=== PATIENT | female | born 1960 | race Caucasian/White ===

== ENCOUNTER 2023-08-07 07:54 | Outpatient (OUT) | payer OTHER, SELFPAY ==
--- NOTE | 2023-08-07 07:59 | XR_ITS ---
[address] [address] Patient Name: TERRIE NEWBERRY MRN: [id number] date: 1960 Sex: F Assigned Patient Location: [facility] Current Patient Location: [facility] Accession/Order Number: [id number] Exam Date: 08/07/2023 08:10 Report Date: 08/07/2023 08:47 At the request of: CHILO ALVARES Procedure: XR DEXA axial skeleton EXAMINATION: XR DEXA axial skeleton HISTORY: Postmenopausal Osteoporosis COMPARISON: DEXA bone densitometry 05/07/2021 TECHNIQUE: Dual-energy X-ray absorptiometry (DXA) was performed. FINDINGS: SPINE ANALYSIS: Average bone mineral density is 0.916 g/cm2. T-score (standard deviation relative to young adult mean): -2.2 . +1.4% change since prior study. HIP ANALYSIS: Lowest bone mineral density is within the left femoral neck, 0.681 g/cm2. T-score (standard deviation relative to young adult mean): -2.6 . +3.7% change since prior study. XR/XR DEXA axial skeleton IMPRESSION: [employer] Classification: Osteoporosis - High Fracture Risk Electronically authenticated by: MERRY RILEY Date: 08/07/2023 08:47
--- NOTE | 2023-08-07 07:59 | MM_ITS ---
Patient Name: TERRIE NEWBERRY MR#: [id number] : 1960 Exam Date: 08/07/2023 Ordering Doctor: MRS. CHILO ALVARES . RADIOLOGY REPORT PROCEDURE: MM TOMOSYNTHESIS SCREENING BI COMPARISON: MG MAMM SCREEN 3D BHANU CAD, 08/01/2022. MG MAMM SCREEN 3D BHANU CAD, 07/31/2021. MG MAMM SCREEN BHANU W CAD, 07/30/2020. MG MAMM BHANU SCRN W CAD DIG, 06/30/2013. INDICATIONS: Screening Calculator Name NCI Breast Cancer Risk Assessment Tool 5 Year Breast Cancer Risk 1.40% Lifetime Breast Cancer Risk 5.60% Personal Breast Cancer No Personal Ovarian Cancer No Treatments hysterectomy Family Cancers None LOCATION: [facility] BREAST COMPOSITION: Heterogeneously dense,which may obscure small masses. FINDINGS: DIAGNOSTIC CATEGORY 1--NEGATIVE. RIGHT BREAST: No significant suspicious finding. No significant change has occurred. LEFT BREAST: No significant suspicious finding. No significant change has occurred. RECOMMENDATIONS: ROUTINE MAMMOGRAM AND CLINICAL EVALUATION IN 12 MONTHS. PLEASE NOTE: A NORMAL MAMMOGRAM DOES NOT EXCLUDE THE POSSIBILITY OF BREAST CANCER. A CLINICALLY SUSPICIOUS PALPABLE LUMP SHOULD BE BIOPSIED. Dictated by: Kam Marley M.D. on 08/11/2023 at 13:55 Approved by: Kam Marley M.D. on 08/11/2023 at 13:57
== END 2023-08-07 07:55 | disposition home or self-care (01) ==
LOC: MAMMO 07:54
PROVIDERS: PCP Nurse Practitioner; Visit Provider Nurse Practitioner
DX: Z12.31 Encounter for screening mammogram for malignant neoplasm of breast (principal); M81.0 Age-related osteoporosis without current pathological fracture
CPT/HCPCS: 77063; 77067; 77080

== ENCOUNTER 2023-11-07 09:45 | Emergency (ER) | payer OTHER, SELFPAY ==
[2023-11-07 09:48] VITALS: BP 145/80; PULSE 104; RESP 16; O2SAT 99; BMI 21.2
--- OUTSIDE RECORDS SUMMARY | 2023-11-07 09:52 | XMS_ITS | CCD ---
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 Role Phone Unavailable Primary Care Provider MD Merle Mcneil Primary Care Provider [facility], Outreach Attending Provider MERLE HERNANDEZ Primary Care Physician [phone] ERENDIRA FOSTER Admitting Unavailable ERENDIRA FOSTER Attending Unavailable CIELO ., DR MERLE Alanis Primary Care Unavailable ERENDIRA FOSTER Consulting Unavailable SHARP, CARIDAD Consulting Unavailable TERELL II, DUANE Consulting Unavailable KARASIK ., DR WATSON Admitting Unavailabl e KARASIK ., DR WATSON Attending Unavailjuan HERNANDEZ ., DR MERLE Alanis Primary Care Unavailable KARASIK ., DR WATSON Consulting Unavailabl e KARASIK ., DR WATSON Admitting Unavailabl e KARASIK ., DR WATSON Attending Unavailjuan HERNANDEZ ., DR MERLE Alanis Primary Care Unavailable KARASIK ., DR WATSON Consulting Unavailjuan e JULIANA, DR CYRUS Pederson Consulting Unavailable [facility] Outreach Attending Unavailable [facility], Outreach Admitting Unavailable Merle Hernandez Primary Care Unavailable MD Merle Hernandez Primary Care Provider [phone] [facility], Out[facility] Attending Provider JOE NUNEZ Attending Unavailable Adia Wong Primary Care Physician Erendira FOSTER Attending Unavailable MERLE HERNANDEZ Referring Unavailable Erendira FOSTER Attending Unavailable Erendira FOSTER Attending Unavailable Marvin, BILLY Alvarez Attending Unavailable Marvin, BILLY Alvarez Attending Unavailable Marvin, PROPERTY MANAGEMENT ASSISTANT Adia Alvarez Attending Unavailable Marvin, PROPERTY MANAGEMENT ASSISTANTAva Alvarez Attending Unavailable Marvin, BILLY Alvarez Admitting Unavailable BILLY Wong Attending Unavailable Anamaria JEAN Attending Unavailable Allergies Allergy Classification Reported Allergen(s) Allergy Type Date of Onset Reaction(s) Facility (3 sources) Bee/Wasp/Ant venom; Translations: [Bee Stings] Drug allergy Edema (finding) [facility] (3 sources) Codeine; Translations: [codeine] Drug Allergy Eruption of skin (disorder) [facility] (3 sources) Erythromycin; Translations: [erythromycin] Drug Allergy Stomach ache (finding) [facility] (3 sources) Meperidine; Translations: [meperidine] Drug Allergy Hallucinations (finding) [facility] (3 sources) Orphenadrine; Translations: [orphenadrine] Drug Allergy Syncope (disorder) [facility] (3 sources) Raloxifene; Translations: [raloxifene] Drug Allergy Unknown (qualifier value) [facility] (3 sources) Risedronate; Translations: [risedronate] Drug Allergy Joint pain (finding) [facility] (1 source) bee venom Drug allergy (disorder) 4 [facility] (1 source) Codeine Drug Allergy 4 [facility] (1 source) Erythromycin Drug Allergy [facility] (1 source) Meperidine Drug Allergy 4 [facility] (1 source) Orphenadrine Drug Allergy 4 [facility] (1 source) Orphenadrine Drug Allergy [facility] (1 source) Raloxifene Drug Allergy [facility] (1 source) Risedronate Drug Allergy [facility] Medications Current Medications Medication Drug Class(es) Dates Sig (Normalized) Sig (Original) alendronic acid 70 mg oral tablet (2 sources) Bisphosphonate Start: 05-05-2023 take 1 tablet by mouth every week Fosamax 70 mg Tab 70 mg = 1 tab(s), Oral, qWeek, # 12 tab(s), Refills(s) 1, Pharmacy: [facility], 156.4, cm, 03/09/23 9:12:00 EDT, Height/Length Dosing, 52, kg, 03/09/23 9:12:00 EDT, Weight Dosing Start Date: 05/05/23 Status: Ordered Start: 10-15-2022 take 1 tablet by khari th every week Fosamax 70 mg Tab 70 mg = 1 tab(s), Oral, qWeek, Refills(s) 0 Start Date: 10/15/22 Status: Ordered amoxicillin 500 mg oral capsule (1 source) Penicillin-class Antibacterial Start: 08-20-2023 End: 08-27-2023 take 1 capsule by mouth three times daily amoxicillin 500 mg Cap 500 mg = 1 cap(s), Oral, TID, X 7 day(s), # 21 cap(s), Refills(s) 0, Pharmacy: [facility]/pharmacy #[id number], 154, cm, 05/28/23 10:28:00 EDT, Height/Length Dosing, 50.5, kg, 05/28/23 10:28:00 EDT, Weight Dosing Start Date: 08/20/23 Stop Date: 08/27/23 Status: Ordered cefuroxime 500 mg oral tablet (1 source) Cephalosporin Antibacterial Start: 08-25-2023 End: 09-01-2023 take 1 tablet by mouth twice daily cefuroxime 500 mg oral tablet 500 mg = 1 tab(s), Oral, BID, X 7 day(s), # 14 tab(s), Refills(s) 0, Pharmacy: [facility]/pharmacy #[id number], 154, cm, 05/28/23 10:28:00 EDT, Height/Length Dosing, 50.5, kg, 05/28/23 10:28:00 EDT, Weight Dosing Start Date: 08/25/23 Stop Date: 09/01/23 Status: Ordered Fish Oils (2 sources) Start: 10-21-2022 Fish Oil Refill(s) 0 Start Date: 10/21/22 Status: Ordered Multi Vitamins oral tablet (2 sources) Start: 10-21-2022 take 1 tablet by mouth once daily Multi Vitamins oral tablet 1 tab(s), Oral, Daily, Refill(s) 0 Start Date: 10/21/22 Status: Ordered Problems Active Problems Problem Classification Problem Date Documented Date Episodic/Chronic Abdominal hernia (3 sources) Hiatal hernia; Translations: [Diaphragmatic hernia without obstruction or gangrene] Onset: 11-06-2022 10-15-2022 Episodic Cancer of uterus (3 sources) History of malignant neoplasm of endometrium; Translations: [Personal history of malignant neoplasm of other parts of uterus] Onset: 11-06-2022 10-15-2022 Episodic Cancer; other and unspecified primary (1 source) Personal history of malignant neoplasm of other organs and systems; Translations: [PERS HX MALIG NEOPLASM OTH ORGN AND SYS] Onset: 11-06-2022 Episodic Esophageal disorders (3 sources) Gastroesophageal reflux disease; Translations: [Gastro-esophageal reflux disease without esophagitis] Onset: 11-06-2022 10-15-2022 Chronic Genitourinary symptoms and ill-defined conditions (3 sources) History of recurrent urinary tract infection; Translations: [Personal history of urinary (tract) infections] Onset: 11-06-2022 10-15-2022 Episodic Menopausal disorders (1 source) Menopausal and postmenopausal disorders 05-28-2023 Chronic Osteoporosis (3 sources) Osteoporosis; Translations: [Age-related osteoporosis without current pathological fracture] Onset: 11-06-2022 10-15-2022 Chronic Other aftercare (1 source) Other alf (current) drug therapy; Translations: [OTH MOTOR RACER CURRENT DRUG THERAPY] Onset: 11-06-2022 Episodic Other connective tissue disease (2 sources) Plantar fascial fibromatosis 10-15-2022 Episodic Other infections; including parasitic (2 sources) History of herpes zoster 10-15-2022 Episodic Other screening for suspected conditions (not mental disorders or infectious disease) (13 sources) Screening for malignant neoplasm of colon done; Translations: [Encounter for screening for malignant neoplasm of colon] Onset: 07-15-2022 Episodic Other upper respiratory disease (1 source) Seasonal allergy 03-09-2023 Chronic Other upper respiratory infections (1 source) Sinusitis 03-09-2023 Chronic Residual codes; unclassified (1 source) Acquired absence of other specified parts of digestive tract; Translations: [ACQ ABSENCE OTH PART DIGESTV TRACT] Onset: 11-06-2022 Episodic Residual codes; unclassified (1 source) Acquired absence of both cervix and uterus; Translations: [ACQUIRED ABSENCE BOTH CERVIX AND UTERUS] Onset: 11-06-2022 Episodic Residual codes; unclassified (1 source) Acquired absence of ovaries, bilateral; Translations: [ACQUIRED ABSENCE OVARIES BILATERAL] Onset: 11-06-2022 Episodic Unclassified (2 sources) Body mass index 20-24 - normal 10-21-2022 Unclassified (4 sources) Patient encounter status 10-21-2022 Past or Other Problems Problem Classification Problem Date Documented Date Episodic/Chronic Immunizations and screening for infectious disease (1 source) Encounter for screening for human papillomavirus (HPV); Translations: [ENC SCREENING HUMAN PAPILLOMAVIRUS] Onset: 07-17-2022 Episodic Results Test Name Value Interpretation Reference Range Facility C Urineon 08-27-2023 Bacteria identified Cx Nom (U) Microbiology PROCEDURE: Urine Culture [R1] SOURCE: U CleanCatch BODY SITE: COLLECTED DATE/TIME: 08/25/2023 08:40 EST RECEIVED DATE/TIME: 08/25/2023 17:33 EST START DATE/TIME: 08/25/2023 17:33 EST FREE TEXT SOURCE: Adia Orosco Jodi L FINAL REPORTS Final Report [] Verified Date/Time: 08/27/2023 10:43 EST >100,000 cfu/ml Escherichia coli SUSCEPTIBILITY RESULTS LEGEND: S=Susceptible, N/R=Not Reported, Blank=Data not available, or drug not advisable or tested, I=Intermediate, ESBL=Extended spectrum beta-lactamase, R=Resistant, TFG=Thymidine-depende nt strain, JUAN M=Beta-lactamase positive, SAM=mcg/m;(mg/L), S*=Predicted susceptible interp, R*=Predicted resistant interp EC Antibiotic SAM Dilutn SAM Interp Amikacin <=16 S Ampicillin >16 R Ampicillin/ 16/8 I Sulbactam Aztreonam <=4 S Cefazolin <=2 S Cefepime <=2 S Cefoxitin <=8 S Ceftazidime <=1 S Ceftazidime/ <=8 S Avibactam Ceftriaxone <=1 S Ciprofloxacin <=1 S Ertapenem <=0.5 S Gentamicin <=4 S Levofloxacin <=2 S Meropenem <=1 S Nitrofurantoin <=32 S Piperacillin/ <=16 S Tazobactam Tetracycline <=4 S Tigecycline <=2 S Tobramycin <=4 S Trimethoprim/ >2/38 R Sulfa Performing Locations R1: This test was performed at: [facility], [address] [place] [address], [id number] , , [facility] Comment on above: Performed By: #### [id number] ####[facility] [id number] [place] [address] Nurse Consultation Noteon Nurse Consultation Note Physical Exam Pt having burning with urination and frequency. Urine positive for infection, urine sent for culture. Assessment/Plan Burning with urination (R30.0: Dysuria) Medications amoxicillin 500 mg Cap, 500 mg= 1 cap(s), Oral, TID cefuroxime 500 mg oral tablet, 500 mg= 1 tab(s), Oral, BID Fish Oil Fosamax 70 mg Tab, 70 mg= 1 tab(s), Oral, qWeek, 1 refills Multi Vitamins oral tablet, 1 tab(s), Oral, Daily Allergies Actonel (Joint pain) Bee Stings (Edema) Demerol (Hallucinations) Evista (Unknown) Norflex (Syncope) codeine (Rash) erythromycin (Stomach upset) Immunizations Vaccine Date Status Comments influenza virus vaccine, inactivated 06/2022 Recorded SARS-CoV-2 (COVID-19) mRNA-1273 vaccine 08/23/2021 Recorded 2022-10-21: [id number] SARS-CoV-2 (COVID-19) mRNA-1273 vaccine 10/10/2020 Recorded SARS-CoV-2 (COVID-19) mRNA-1273 vaccine 09/12/2020 Recorded Lab Results Ambulatory Point of Care Results Bilirubin Urine Dipstick: Negative (08/25/23 08:28:00) Blood Urine Dipstick: 2+ Moderate (08/25/23 08:28:00) Glucose Urine Dipstick: Negative (08/25/23 08:28:00) Ketones Urine Dipstick: Negative (08/25/23 08:28:00) Leukocytes Urine Dipstick: Trace (08/25/23 08:28:00) Nitrite Urine Dipstick: Negative (08/25/23 08:28:00) Protein Urine Dipstick: Negative (08/25/23 08:28:00) Specific [place] Urine Dipstick: 1.010 (08/25/23 08:28:00) Urine Appearance Urine Dipstick: Slightly cloudy (08/25/23 08:28:00) Urine Color Urine Dipstick: Light yellow (08/25/23 08:28:00) Urobilinogen Urine Dipstick: Normal 0.2-1 EU/dl (08/25/23 08:28:00) pH Urine Dipstick: 5.5 (08/25/23 08:28:00) Normal [facility] Ambulatory Visit Summaryon 1 Ambulatory Visit Summary NANCY NEWBERRY :1960 Visit Date:07/08/2023 Ambulatory Visit Instructions Your Care Team Attending Physician - Adia Orosco Primary Care Physician - CIELO PUENTES, MERLE Alanis This Is Your Medications List alendronate (Fosamax 70 mg Tab) multivitamin (Multi Vitamins oral tablet) omega-3 polyunsaturated fatty acids (Fish Oil) Procedures Performed Cholecystectomy (06/2005), PATRICK BSO - Total abdominal hysterectomy and bilateral salpingo-oophorectomy (07/2004), Biopsy of breast, Exploratory laparotomy, ORIF - Open reduction and internal fixation of fracture. Medications What How Much When Instructions Unchanged alendronate (Fosamax 70 mg Tab) 1 Tablets By Mouth Every week Unchanged multivitamin (Multi Vitamins oral tablet) 1 Tablets By Mouth Every day Unchanged omega-3 polyunsaturated fatty acids (Fish Oil) Allergies Actonel (Joint pain) Bee Stings (Edema) Demerol (Hallucinations) Evista (Unknown) Norflex (Syncope) codeine (Rash) erythromycin (Stomach upset) Problems Ongoing - Any problem that you are currently receiving treatment for. BMI 20.0-20.9, adult Breast cancer screening GERD (gastroesophageal reflux disease) Hiatal hernia History of endometrial cancer History of recurrent UTIs History of shingles Osteoporosis Plantar fascial fibromatosis Post menopausal syndrome Screening for malignant neoplasm of colon Seasonal allergies Sinusitis Well woman exam Patient Survey You may receive a survey via text or e-mail asking about your office visit. Please share your experience with us by completing your survey. We appreciate your feedback and thank you for choosing us for your care. [facility] 07-08-2023 Consent [id number]#1. 00TIFF [facility] Consent for Flu Vaccineon Consent for Flu Vaccine [id number]#1. 00TIFF [facility] Lab Reportson 06-03-2023 Lab Reports [id number]# 1.00CD:127 [facility] Alanine aminotransferase [En zymatic activity/volume] in Serum or PlasmaOrdered By: OUTREACH COMMUNITY on 05-30-2023 ALT [Catalytic activity/Vol] 22 U/L 7-52 [facility] Albumin [Mass/volume] in Ser um or Plasma by Bromocresol green (BCG) dye binding methoOrdered By: OUTREACH COMMUNITY on 05-30-2023 Albumin BCG dye [Mass/Vol] 4.7 g/dL 3.5-5.7 [facility] Alkaline phosphatase [Enzyma tic activity/volume] in Serum or PlasmaOrdered By: OUTREACH COMMUNITY on 05-30-2023 ALP [Catalytic activity/Vol] 39 U/L 34-104 [facility] Aspartate aminotransferase [ Enzymatic activity/volume] in Serum or PlasmaOrdered By: OUTREACH COMMUNITY on 05-30-2023 AST [Catalytic activity/Vol] 25 U/L 13-39 [facility] Bilirubin.total [Mass/volume ] in Serum or PlasmaOrdered By: OUTREACH [facility] on 05-30-2023 Bilirubin [Mass/Vol] 1.5 mg/dL 0.3-1.0 [facility] Comment on above: Samples from patient s who have taken Naproxen have shown spurious elevation in Total Bilirubin levels. A metabolite of Naproxen, O-desmethylnaproxen, has been shown to interfere with the Viridiana-Gabe method for measuring Total Bilirubin. CBC Without Differentialon 0 05-30-2023 Erythrocyte distribution width (RBC) [Ratio] 12.7 % Normal 11.9-15.3 [facility] Comment on above: Performed By: #### O UTREACH LIPID, OUTREACH TSH, OUTREACH CMP, CBCNOOUTREACH #### [address] Hematocrit (Bld) [Volume fraction] 44.7 % Normal 34.0-46.4 [facility] Comment on above: Performed By: #### O UTREACH LIPID, OUTREACH TSH, OUTREACH CMP, CBCNOOUTREACH #### [address] Hemoglobin (Bld) [Mass/Vol] 15.1 g/dL Normal 11.8-15.4 [facility] Comment on above: Performed By: #### O UTREACH LIPID, OUTREACH TSH, OUTREACH CMP, CBCNOOUTREACH #### [address] MCH (RBC) [Entitic mass] 32.1 pg Normal 24.7-34.3 [facility] Comment on above: Performed By: #### O UTREACH LIPID, OUTREACH TSH, OUTREACH CMP, CBCNOOUTREACH #### [address] MCV (RBC) [Entitic vol] 94.9 fL Normal 80-100 F [facility] Comment on above: Performed By: #### O UTREACH LIPID, OUTREACH TSH, OUTREACH CMP, CBCNOOUTREACH #### [facility] [address] Mean Corpuscular HGB Conc 33.8 g/dL Normal 32.0-35.0 [facility] Comment on above: Performed By: #### O UTREACH LIPID, OUTREACH TSH, OUTREACH CMP, CBCNOOUTREACH #### [address] Platelet mean volume (Bld) [Entitic vol] 9.6 fL Normal 6.3-10.7 [facility] Comment on above: Result Comment: PERF ORMED BY: [place] [address] PATHOLOGIST REFRIGERATION SUPERVISOR GO COCHRAN M.D. Performed By: #### O UTREACH LIPID, OUTREACH TSH, OUTREACH CMP, CBCNOOUTREACH #### [address] Platelets (Bld) [#/Vol] 214 10*3/uL Normal 150-450 [facility] Comment on above: Performed By: #### O UTREACH LIPID, OUTREACH TSH, OUTREACH CMP, CBCNOOUTREACH #### [address] RBC (Bld) [#/Vol] 4.71 10*6/uL Normal 3.60-5.00 [facility] Comment on above: Performed By: #### O UTREACH LIPID, OUTREACH TSH, OUTREACH CMP, CBCNOOUTREACH #### [address] WBC (Bld) [#/Vol] 4.7 10*3/uL Normal 3.8-11.6 [facility] Comment on above: Performed By: #### O UTREACH LIPID, OUTREACH TSH, OUTREACH CMP, CBCNOOUTREACH #### [address] CMP Outreachon 05-30-2023 Albumin [Mass/Vol] 4.7 g/dL Normal 3.5-5.7 [facility] Comment on above: Performed By: #### O UTREACH LIPID, OUTREACH TSH, OUTREACH CMP, CBCNOOUTREACH #### [facility] [address] ALP [Catalytic activity/Vol] 39 U/L Normal 34-104 [facility] Comment on above: Performed By: #### O UTREACH LIPID, OUTREACH TSH, OUTREACH CMP, CBCNOOUTREACH #### [facility] [address] [place] [id number] [place] ALT [Catalytic activity/Vol] 22 U/L Normal 7-52 [facility] Comment on above: Performed By: #### O UTREACH LIPID, OUTREACH TSH, OUTREACH CMP, CBCNOOUTREACH #### [facility] [address] Anion gap [Moles/Vol] 9.9 mmol/L Normal 6.0-15.0 [facility] Comment on above: Performed By: #### O UTREACH LIPID, OUTREACH TSH, OUTREACH CMP, CBCNOOUTREACH #### [facility] [address] [place] [id number] [facility] AST [Catalytic activity/Vol] 25 U/L Normal 13-39 [facility] Comment on above: Performed By: #### O UTREACH LIPID, OUTREACH TSH, OUTREACH CMP, CBCNOOUTREACH #### [facility] [address] [place] [id number] [place] Bilirubin [Mass/Vol] 1.5 mg/dL High 0.3-1.0 [facility] Comment on above: Result Comment: Samp les from patients who have taken Naproxen have shown spurious elevation in Total Bilirubin levels. A metabolite of Naproxen, O-desmethylnaproxen, has been shown to interfere with the Jendrassik-Grof method for measuring Total Bilirubin. Performed By: #### O UTREACH LIPID, OUTREACH TSH, OUTREACH CMP, CBCNOOUTREACH #### [facility] [address] [place] [id number] [place] Calcium [Mass/Vol] 10.0 mg/dL Normal 8.6-10.3 [facility] Comment on above: Performed By: #### O UTREACH LIPID, OUTREACH TSH, OUTREACH CMP, CBCNOOUTREACH #### [facility] [address] [place] [address] [place] Chloride [Moles/Vol] 103 mmol/L Normal 98-107 [facility] Comment on above: Performed By: #### O UTREACH LIPID, OUTREACH TSH, OUTREACH CMP, CBCNOOUTREACH #### [facility] [address] [place] [address] [place] CO2 [Moles/Vol] 29.2 mmol/L Normal 21.0-31.0 [facility] Comment on above: Performed By: #### O UTREACH LIPID, OUTREACH TSH, OUTREACH CMP, CBCNOOUTREACH #### [facility] [address] [place] [address] [place] Creatinine [Mass/Vol] 0.83 mg/dL Normal 0.60-1.20 [facility] Comment on above: Performed By: #### O UTREACH LIPID, OUTREACH TSH, OUTREACH CMP, CBCNOOUTREACH #### [facility] [address] [place] [address] [place] GFR/1.73 sq M.predicted MDRD (S/P/Bld) [Vol rate/Area] mL/min/{1.73_m2} Normal [facility] Comment on above: Performed By: #### O UTREACH LIPID, OUTREACH TSH, OUTREACH CMP, CBCNOOUTREACH #### [facility] [address] [place] [address] [place] Glucose [Mass/Vol] 89 mg/dL Normal 70-100 [facility] Comment on above: Result Comment: [facility] Glucose Reference Range is dependent on time and content of last meal. Glucose of more than 200 mg/dL in a nonstressed, ambulatory subject supports the diagnosis of Diabetes Mellitus. ADA recommended reference range Performed By: #### O UTREACH LIPID, OUTREACH TSH, OUTREACH CMP, CBCNOOUTREACH #### [facility] [address] [place] [address] [place] Potassium [Moles/Vol] 4.1 mmol/L Normal 3.5-5.1 [facility] Comment on above: Performed By: #### O UTREACH LIPID, OUTREACH TSH, OUTREACH CMP, CBCNOOUTREACH #### [facility] [address] [place] [address] [place] Protein [Mass/Vol] 7.1 g/dL Normal 6.4-8.9 [facility] Comment on above: Performed By: #### O UTREACH LIPID, OUTREACH TSH, OUTREACH CMP, CBCNOOUTREACH #### [facility] [address] [place] [address] [place] Sodium [Moles/Vol] 138 mmol/L Normal 136-145 [facility] Comment on above: Performed By: #### O UTREACH LIPID, OUTREACH TSH, OUTREACH CMP, CBCNOOUTREACH #### [facility] [address] Urea nitrogen [Mass/Vol] 18 mg/dL Normal 7-25 [facility] Comment on above: Performed By: #### O UTREACH LIPID, OUTREACH TSH, OUTREACH CMP, CBCNOOUTREACH #### [facility] [address] [place] [address] [place] Calcium [Mass/volume] in Ser um or PlasmaOrdered By: OUTREACH COMMUNITY on 05-30-2023 Calcium [Mass/Vol] 10.0 mg/dL 8.6-10.3 [facility] Carbon dioxide, total [Moles /volume] in Serum or PlasmaOrdered By: OUTREACH COMMUNITY on 05-30-2023 CO2 [Moles/Vol] 29.2 mmol/L 21.0-31.0 [facility] Chloride [Moles/volume] in S joanie or PlasmaOrdered By: OUTREACH COMMUNITY on 05-30-2023 Chloride [Moles/Vol] 103 mmol/L 98-107 [facility] Cholesterol [Mass/volume] in Serum or PlasmaOrdered By: OUTREACH COMMUNITY on 05-30-2023 Cholesterol [Mass/Vol] 253 mg/dL 140-200 [facility] Comment on above: Chol less than 200 m g/dl low riskChol 201-239 mg/dl borderline riskChol 240 mg/dl and greater high risk Cholesterol in LDL Calc [Mas s/Vol]Ordered By: OUTREACH COMMUNITY on 05-30-2023 Cholesterol in LDL [Mass/Vol] 130 mg/dL 0-100 [facility] Comment on above: LDL ATP III CLASSIFI CATIONLDL less than 100 mg/dL OptimalLDL 100-129 mg/dL Near or above optimalLDL 130-159 mg/dL Borderline highLDL 160-189 mg/dL HighLDL greater than 189 mg/dL Very high Cholesterol in VLDL Calc [Ma ss/Vol]Ordered By: [facility] on 05-30-2023 Cholesterol in VLDL [Mass/Vol] 13 mg/dL [facility] Creatinine [Mass/volume] in Serum or PlasmaOrdered By: [facility] on 05-30-2023 Creatinine [Mass/Vol] 0.83 mg/dL 0.60-1.20 [facility] Erythrocyte distribution wid th Auto (RBC) [Ratio]Ordered By: [facility] on 05-30-2023 Erythrocyte distribution width (RBC) [Ratio] 12.7 % 11.9-15.3 [facility] Glucose [Mass/volume] in Ser um or PlasmaOrdered By: [facility] on 05-30-2023 Glucose [Mass/Vol] 89 mg/dL 70-100 [facility] Comment on above: ADA recommended refe rence rangeRandom Glucose Reference Range is dependent on time and content of last meal. Glucose of more than 200 mg/dL in a nonstressed, ambulatory subject supports the diagnosis of Diabetes Mellitus. Hematocrit Auto (Bld) [Volum e fraction]Ordered By: [facility] on 05-30-2023 Hematocrit (Bld) [Volume fraction] 44.7 % 34.0-46.4 [facility] Hemoglobin [Mass/volume] in BloodOrdered By: [facility] on 05-30-2023 Hemoglobin (Bld) [Mass/Vol] 15.1 g/dL 11.8-15.4 [facility] Leukocytes [#/volume] correc mame for nucleated erythrocytes in Blood by Automated counOrdered By: [facility] on 05-30-2023 WBC corrected for nucl RBC Auto (Bld) [#/Vol] 4.7 10*3/uL 3.8-11.6 [facility] Lipid Profile Outreach Cholesterol [Mass/Vol] 253 mg/dL High 140-200 [facility] Comment on above: Result Comment: Chol less than 200 mg/dl low risk Chol 201-239 mg/dl borderline risk Chol 240 mg/dl and greater high risk Performed By: #### O UTREACH LIPID, OUTREACH TSH, OUTREACH CMP, CBCNOOUTREACH #### [facility] [address] [place] [id number] [place] Cholesterol in HDL [Mass/Vol] 110 mg/dL High 23-92 [facility] Comment on above: Result Comment: HDL CHOL ATP-III CLASSIFICATION Cardiovascular Risk HDL > or equal to 60 mg/dL LOW HDL < 40 mg/dL HIGH Performed By: #### O UTREACH LIPID, OUTREACH TSH, OUTREACH CMP, CBCNOOUTREACH #### [facility] [address] Cholesterol.total/Usha sterol in HDL [Mass ratio] 2.3 {ratio} Normal <5.0 [facility] Comment on above: Performed By: #### O UTREACH LIPID, OUTREACH TSH, OUTREACH CMP, CBCNOOUTREACH #### [facility] [address] [id number] [facility] LDL Cholesterol,Calculated 130 mg/dL High 0-100 [facility] Comment on above: Result Comment: LDL ATP III CLASSIFICATION LDL less than 100 mg/dL Optimal LDL 100-129 mg/dL Near or above optimal LDL 130-159 mg/dL Borderline high LDL 160-189 mg/dL High LDL greater than 189 mg/dL Very high Performed By: #### O UTREACH LIPID, OUTREACH TSH, OUTREACH CMP, CBCNOOUTREACH #### [facility] [address] [id number] [facility] Triglyceride w/Reflex 65 mg/dL Normal 0-149 [facility] Comment on above: Result Comment: TRIG ATP III CLASSIFICATION TRIG less than 150 mg/dL Normal TRIG 150-199 mg/dL Borderline high TRIG 200-500 mg/dL High TRIG greater than 500 mg/dL Very high Standard traceable to the Center for Disease Conrtrol and Prevention (CDC) test method. Performed By: #### O UTREACH LIPID, OUTREACH TSH, OUTREACH CMP, CBCNOOUTREACH #### [facility] [address] [id number] [facility] VLDL CHOLESTEROL 13 mg/dL Normal [facility] Comment on above: Performed By: #### O [facility] LIPID, OUTREACH TSH, OUTREACH CMP, CBCNOOUTREACH #### [facility] [address] [place] [address] [facility] MCH Auto (RBC) [Entitic mass ]Ordered By: OUTREACH [facility] on 05-30-2023 MCH (RBC) [Entitic mass] 32.1 pg 24.7-34.3 [facility] MCHC Auto (RBC) [Mass/Vol]Or dered By: OUTREACH [facility] on 05-30-2023 MCHC (RBC) [Mass/Vol] 33.8 g/dL 32.0-35.0 [facility] MCV Auto (RBC) [Entitic vol] Ordered By: [facility] on 05-30-2023 MCV (RBC) [Entitic vol] 94.9 fL 80-100 F [facility] No Panel InformationOrdered By: [facility] on 05-30-2023 Estimated GFR (CKD-EPI) > 60.0 mL/Min [facility] Creatinine Clearance (Chem N/A [facility] Platelet mean volume Auto (B ld) [Entitic vol]Ordered By: [facility] on 05-30-2023 Platelet mean volume (Bld) [Entitic vol] 9.6 fL 6.3-10.7 [facility] Platelets Auto (Bld) [#/Vol] Ordered By: [facility] on 05-30-2023 Platelets (Bld) [#/Vol] 214 10*3/uL 150-450 [facility] Potassium [Moles/volume] in Serum or PlasmaOrdered By: OUTREACH [facility] on 05-30-2023 Potassium [Moles/Vol] 4.1 mmol/L 3.5-5.1 [facility] Protein [Mass/volume] in Ser um or PlasmaOrdered By: OUTREACH [facility] on 05-30-2023 Protein [Mass/Vol] 7.1 g/dL 6.4-8.9 [facility] RBC Auto (Bld) [#/Vol]Ordere d By: OUTREACH [facility] on 05-30-2023 RBC (Bld) [#/Vol] 4.71 10*6/uL 3.60-5.00 [facility] Serum or plasma anion gap de terminationOrdered By: OUTREACH COMMUNITY on 05-30-2023 Anion gap [Moles/Vol] 9.9 mmol/L 6.0-15.0 [facility] Serum or plasma high density lipoprotein (HDL) cholesterol measurementOrdered By: OUTREACH COMMUNITY on 05-30-2023 Cholesterol in HDL [Mass/Vol] 110 mg/dL 23-92 [facility] Comment on above: HDL CHOL ATP-III CLA SSIFICATION Cardiovascular RiskHDL > or equal to 60 mg/dL LOWHDL < 40 mg/dL HIGH Serum or plasma total choles terol/high density lipoprotein (HDL) cholesterol mass ratOrdered By: OUTREACH COMMUNITY on 05-30-2023 Cholesterol.total/Usha sterol in HDL [Mass ratio] 2.3 {ratio} <5.0 [facility] Sodium [Moles/volume] in Ser um or PlasmaOrdered By: OUTREACH COMMUNITY on 05-30-2023 Sodium [Moles/Vol] 138 mmol/L 136-145 [facility] Thyroid Stimulating Hormoneo n 05-30-2023 TSH Qn 2.12 m[IU]/L Normal 0.45-5.33 [facility] Comment on above: Result Comment: PERF ORMED BY: [place] [address] PATHOLOGIST REFRIGERATION SUPERVISOR GO COCHRAN M.D. Performed By: #### O [facility] LIPID, OUTREACH TSH, OUTREACH CMP, CBCNOOUTREACH #### [facility] [address] [place] [address] Thyrotropin [Units/volume] i n Serum or PlasmaOrdered By: OUTREACH COMMUNITY on 05-30-2023 TSH Qn 2.12 m[IU]/L 0.45-5.33 [facility] Triglyceride [Mass/volume] i n Serum or PlasmaOrdered By: OUTREACH COMMUNITY on 05-30-2023 Triglyceride [Mass/Vol] 65 mg/dL 0-149 F [facility] Comment on above: TRIG ATP III CLASSIF ICATIONTRIG less than 150 mg/dL NormalTRIG 150-199 mg/dL Borderline highTRIG 200-500 mg/dL High TRIG greater than 500 mg/dL Very highStandard traceable to the Center for Disease Conrtrol and Prevention (CDC) test method. Urea nitrogen [Mass/volume] in Serum or PlasmaOrdered By: OUTREACH COMMUNITY on 05-30-2023 Urea nitrogen [Mass/Vol] 18 mg/dL 7-25 [facility] Ambulatory Visit Summaryon 0 05-28-2023 Ambulatory Visit Summary NANCY NEWBERRY :1960 Visit Date:05/28/2023 Ambulatory Visit Instructions Your Diagnosis Well woman exam Post menopausal syndrome Breast cancer screening Your Care Team Attending Physician - Adia Orosco Primary Care Physician - CIELO PUENTES, MERLE Alanis This Is Your Medications List alendronate (Fosamax 70 mg Tab) multivitamin (Multi Vitamins oral tablet) omega-3 polyunsaturated fatty acids (Fish Oil) Procedures Performed Cholecystectomy (06/2005), [facility] - Total abdominal hysterectomy and bilateral salpingo-oophorectomy (07/2004), Biopsy of breast, Exploratory laparotomy, ORIF - Open reduction and internal fixation of fracture. Discharge Vitals Heart Rate (Peripheral) 80 Respiratory Rate 18 Blood Pressure 112/80 Height 154 cm Height 61 in Weight 50.5 kg Weight 111.1 lb BMI 21.29 Medications What How Much When Instructions Unchanged alendronate (Fosamax 70 mg Tab) 1 Tablets By Mouth Every week Unchanged multivitamin (Multi Vitamins oral tablet) 1 Tablets By Mouth Every day Unchanged omega-3 polyunsaturated fatty acids (Fish Oil) Allergies Actonel (Joint pain) Bee Stings (Edema) Demerol (Hallucinations) Evista (Unknown) Norflex (Syncope) codeine (Rash) erythromycin (Stomach upset) Problems Ongoing - Any problem that you are currently receiving treatment for. BMI 20.0-20.9, adult Breast cancer screening GERD (gastroesophageal reflux disease) Hiatal hernia History of endometrial cancer History of recurrent UTIs History of shingles Osteoporosis Plantar fascial fibromatosis Post menopausal syndrome Screening for malignant neoplasm of colon Seasonal allergies Sinusitis Well woman exam Normal [facility] Family Medicine Office/Clini c Noteon 05-28-2023 Family Medicine Office/Clinic Note HPI Staff Cruz is a 62 year old female presenting for wellness exam Health Maintenance: Colonoscopy: 10/2022 normal, repeat 10 years Dexa: 04/2021, needs orders Mammo: 07/2022 needs scan Pap: 07/18/2022 Last Labs: 04/24/2022 on dark side, pt going this Thursday having Lipid, cmp, cbc, tsh Immunizations: Flu: 06/2022 #13- no #23- no td/tdap: within 10 years Zoster- no Shingrex no History of Present Illness pt presents today for well woman exam Review of Systems PHQ Score Initial Depression Screen Score: 0 Constitutional: No fever, No chills, No sweats, No weakness. No Weight change; No fatigue. Skin: No rash, No lesions. ENMT: No ear pain, No sore throat, No congestion. Respiratory: No shortness of breath, No cough, No orthopnea, No wheezing. Cardiovascular: No chest pain, No palpitations, No peripheral edema. Gastrointestinal: No nausea, No vomiting, No diarrhea, No GI bleeding. Genitourinary: No dysuria, No hematuria, No discharge, No pain. Gynecology: No abnormal vaginal discharge, No vaginal itching/burning, No vaginal dryness, No painful periods, No abnormal bleeding, No pelvic pain, No painful intercourse, No hair loss/growth, No hot flashes Breast: No breast pain, No skin changes, No masses/lumps, No nipple discharge. Musculoskeletal: No back pain, No trauma. Neurological: No headache, No dizziness, No numbness, No weakness. Psychiatric: No sleeping problems, No irritability, No mood swings/depression. Heme/Lymph: No bleeding tendency, No bruising tendency, No petechiae, No swollen. Physical Exam Vitals & Measurements HR: 80(Peripheral) RR: 18 BP: 112/80 SpO2: 98% HT: 61 in HT: 154 cm WT: 50.5 kg WT: 111.1 lb BMI: 21.29 General: Well developed, well nourished, in no acute distress Neck: Neck supple. No masses or palpable cervical nodes. Trachea midline. Thyroid without nodules, masses, tenderness, or enlargement Breast: No mass, nodule, discharge, or erythema bilaterally, and no axillary lymphadenopathy Lungs: Normal respiratory effort and clear to auscultation Cardio: Regular rate and rhythm, normal S1 and S2, no murmur, no rub Abdomen: Soft, non-distended, non-tender, normal bowel sounds x4 Gyno: normal external genitalia. Urethra no discharge. Vagina normal without lesions, no vaginal discharge. Hysterectomy Neurologic: Grossly normal Skin: [place], moist, no tenting Lymph Nodes: No cervical adenopathy, nodes normal Mental Status: Alert and oriented x3. Normal mood and affect Assessment/Plan 1. Well woman exam (Z01.419: Encounter for gynecological examination (general) (routine) without abnormal findings) pt presents today for well woman exam. Pt had negative pap test last year. will defer this year. BSE discussed. physical exam WNL. pt is in need of mammogram and dexa scan order today. will fax order to [facility]. pt uses compound gel from Dr. Quach for vaginal atrophy. all questions answered. RTC as needed 2. Post menopausal syndrome (N95.1: Menopausal and female climacteric states) will order dexa scan 3. Breast cancer screening (Z12.39: Encounter for other screening for malignant neoplasm of breast) will order mammogram Orders: fluconazole, 150 mg = 1 tab(s), Oral, Once, take one tab on day 1 and repeat on day 4 if symptoms persist, # 2 tab(s), Refills(s) 0, Pharmacy: [facility]/pharmacy #[id number], 156.4, cm, 03/09/23 9:12:00 EDT, Height/Length Dosing, 52, kg, 03/09/23 9:12:00 EDT, Weight Dosing Follow-up No qualifying data available Problem List/Past Medical History Ongoing BMI 20.0-20.9, adult Breast cancer screening GERD (gastroesophageal reflux disease) Hiatal hernia History of endometrial cancer History of recurrent UTIs History of shingles Osteoporosis Plantar fascial fibromatosis Post menopausal syndrome Screening for malignant neoplasm of colon Seasonal allergies Sinusitis Well woman exam Historical No qualifying data Procedure/Surgical History Cholecystectomy (06/2005), [facility] - Total abdominal hysterectomy and bilateral salpingo-oophorectomy (07/2004), Biopsy of breast, Exploratory laparotomy, ORIF - Open reduction and internal fixation of fracture. Medications Fish Oil Fosamax 70 mg Tab, 70 mg= 1 tab(s), Oral, qWeek, 1 refills Multi Vitamins oral tablet, 1 tab(s), Oral, Daily Allergies Actonel (Joint pain) Bee Stings (Edema) Demerol (Hallucinations) Evista (Unknown) Norflex (Syncope) codeine (Rash) erythromycin (Stomach upset) Social History Alcohol - Denies Alcohol Use, 10/21/2022 Substance Abuse - Denies Substance Abuse, 10/21/2022 Tobacco Never (less than 100 in lifetime) Tobacco Use:. Never Smokeless Tobacco Use:. Household tobacco concerns: No., 05/28/2023 Family History Heart disease: Mother. Hypertension: Mother. Osteoporosis: Mother and Father. Immunizations Vaccine Date Status Comments influenza virus vaccine, inactivated 06/2022 Recorded SARS-CoV-2 (COVID-19) mRNA-1273 vaccine (more content not included)... Normal [facility] Comment on above: Result Comment: Elec tronically Signed By: Adia Orosco\.br\Date and Time Signed: 05/28/23 10:34 EDT Ambulatory Visit Summaryon 0 03-09-2023 Ambulatory Visit Summary AICHA NEWBERRYDAVID Alvarez :1960 Visit Date:03/09/2023 Ambulatory Visit Instructions Your Diagnosis Sinusitis Seasonal allergies BMI 20.0-20.9, adult Non-smoker Your Care Team Attending Physician - Adia Orosco Primary Care Physician - MERLE HERNANDEZ MD This Is Your Medications List alendronate (Fosamax 70 mg Tab) cefuroxime (cefuroxime 500 mg oral tablet) multivitamin (Multi Vitamins oral tablet) omega-3 polyunsaturated fatty acids (Fish Oil) Procedures Performed Cholecystectomy (06/2005), [facility] BSO - Total abdominal hysterectomy and bilateral salpingo-oophorectomy (07/2004), Biopsy of breast, Exploratory laparotomy, ORIF - Open reduction and internal fixation of fracture. Discharge Vitals Heart Rate (Peripheral) 82 Respiratory Rate 16 Blood Pressure 110/78 Height 156.4 cm Height 62 in Weight 52 kg Weight 114.4 lb BMI 21.26 Medications What How Much When Instructions Unchanged alendronate (Fosamax 70 mg Tab) 1 Tablets By Mouth Every week Unchanged cefuroxime (cefuroxime 500 mg oral tablet) 1 Tablets By Mouth 2 times a day Duration: 7 Days Pickup at [facility]/pharmacy #[id number] Unchanged multivitamin (Multi Vitamins oral tablet) 1 Tablets By Mouth Every day Unchanged omega-3 polyunsaturated fatty acids (Fish Oil) Pharmacy Information [facility]/pharmacy #[id number]: [address] [place], [place] [id number] [phone] Medications and Immunizations Administered Given triamcinolone acetonide 40 mg/mL Inj Susp, 40 mg, IntraMuscular. For: Sinusitis, Seasonal allergies Allergies Actonel (Joint pain) Bee Stings (Edema) Demerol (Hallucinations) Evista (Unknown) Norflex (Syncope) codeine (Rash) erythromycin (Stomach upset) Problems Ongoing - Any problem that you are currently receiving treatment for. BMI 20.0-20.9, adult GERD (gastroesophageal reflux disease) Hiatal hernia History of endometrial cancer History of recurrent UTIs History of shingles Osteoporosis Plantar fascial fibromatosis Screening for malignant neoplasm of colon Seasonal allergies Sinusitis Normal [facility] Consenton 03-09-2023 Consent [id number] .[id number]:127 Normal [facility] Family Medicine Office/Clini c Noteon 03-09-2023 Family Medicine Office/Clinic Note Chief Complaint cold symptoms HPI Staff Nancy is at 62 year old female presenting with cold symptoms _Respiratory C/O: Duration: 6 days ago Body aches: no Chest congestion: no Chills: no Cough: yes Ear complaints: no Eye itching/watering: yes Fever: no Headache: no Nasal congestion: yes Nasal discharge: yes yellow green Poor appetite: no Reduced activity: no Sinus pain/pressure: no Sneezing: yes Sputum production: no Wheezing: no Ill contacts: no Remedies tried: antihistamines zyrtec, flonase, allergy eye drops Review of Systems PHQ Score Initial Depression Screen Score: 0 Physical Exam Vitals & Measurements HR: 82(Peripheral) RR: 16 BP: 110/78 SpO2: 98% HT: 62 in HT: 156.4 cm WT: 52 kg WT: 114.4 lb BMI: 21.26 Assessment/Plan 1. Sinusitis (J32.9: Chronic sinusitis, unspecified) Ordered: triamcinolone, 40 mg = 1 mL, Injection, IntraMuscular, Once, Stop date 03/09/23 9:20:00 EDT, Routine, Start date 03/09/23 9:20:00 EDT, 03/09/23 9:20:00 EDT 2. Seasonal allergies (J30.2: Other seasonal allergic rhinitis) Ordered: triamcinolone, 40 mg = 1 mL, Injection, IntraMuscular, Once, Stop date 03/09/23 9:20:00 EDT, Routine, Start date 03/09/23 9:20:00 EDT, 03/09/23 9:20:00 EDT Orders: cefuroxime, 500 mg = 1 tab(s), Oral, BID, X 7 day(s), # 14 tab(s), Refills(s) 0, Pharmacy: [facility]/pharmacy #[id number], 156.4, cm, 03/09/23 9:12:00 EDT, Height/Length Dosing, 52, kg, 03/09/23 9:12:00 EDT, Weight Dosing Follow-up No qualifying data available Problem List/Past Medical History Ongoing BMI 20.0-20.9, adult GERD (gastroesophageal reflux disease) Hiatal hernia History of endometrial cancer History of recurrent UTIs History of shingles Osteoporosis Plantar fascial fibromatosis Screening for malignant neoplasm of colon Seasonal allergies Sinusitis Historical No qualifying data Procedure/Surgical History Cholecystectomy (06/2005), [facility] - Total abdominal hysterectomy and bilateral salpingo-oophorectomy (07/2004), Biopsy of breast, Exploratory laparotomy, ORIF - Open reduction and internal fixation of fracture. Medications cefuroxime 500 mg oral tablet, 500 mg= 1 tab(s), Oral, BID Fish Oil Fosamax 70 mg Tab, 70 mg= 1 tab(s), Oral, qWeek Multi Vitamins oral tablet, 1 tab(s), Oral, Daily Allergies Actonel (Joint pain) Bee Stings (Edema) Demerol (Hallucinations) Evista (Unknown) Norflex (Syncope) codeine (Rash) erythromycin (Stomach upset) Social History Alcohol - Denies Alcohol Use, 10/21/2022 Substance Abuse - Denies Substance Abuse, 10/21/2022 Tobacco Never (less than 100 in lifetime) Tobacco Use:. Never Smokeless Tobacco Use:. Household tobacco concerns: No., 03/09/2023 Family History Heart disease: Mother. Hypertension: Mother. Osteoporosis: Mother and Father. Immunizations Vaccine Date Status Comments influenza virus vaccine, inactivated 06/2022 Recorded SARS-CoV-2 (COVID-19) mRNA-1273 vaccine 08/23/2021 Recorded 2022-10-21: [id number] SARS-CoV-2 (COVID-19) mRNA-1273 vaccine 10/10/2020 Recorded SARS-CoV-2 (COVID-19) mRNA-1273 vaccine 09/12/2020 Recorded Normal [facility] Comment on above: Result Comment: Elec tronically Signed By: Adia Orosco.[email or web address]\Date and Time Signed: 03/09/23 09:32 EDT Family Medicine Video Visit - Telehealthon 03-09-2023 Family Medicine Video Visit - Telehealth Chief Complaint cold symptoms HPI Staff Nancy is at 62 year old female presenting with cold symptoms _Respiratory C/O: Duration: 6 days ago Body aches: no Chest congestion: no Chills: no Cough: yes Ear complaints: no Eye itching/watering: yes Fever: no Headache: no Nasal congestion: yes Nasal discharge: yes yellow green Poor appetite: no Reduced activity: no Sinus pain/pressure: no Sneezing: yes Sputum production: no Wheezing: no Ill contacts: no Remedies tried: antihistamines zyrtec, flonase, allergy eye drops History of Present Illness pt presents today with worsening allergy symptoms with green/yellowish nasal drainage Review of Systems ROS - Provider Constitutional: no fever, no chills, no sweats, no fatigue Respiratory: no shortness of breath, no cough, no orthopnea, no wheezing. Cardiovascular: no chest pain, no palpitations, no edema. Neurologic: no headache, no dizziness, no numbness, no weakness. Physical Exam Vitals & Measurements HR: 82(Peripheral) RR: 16 BP: 110/78 SpO2: 98% HT: 62 in HT: 156.4 cm WT: 52 kg WT: 114.4 lb BMI: 21.26 General: alert, no acute distress ENMT: oral mucosa moist, no pharyngeal erythema or exudate Cardiovascular: regular rate and rhythm, normal peripheral perfusion Respiratory: Lungs CTA, respirations non labored Extremities: no deformity, no trauma Neurological: oriented x 4, LOC appropriate for age, CN II-XII intact, motor strength equal & normal bilaterally, speech normal Assessment/Plan 1. Sinusitis (J32.9: Chronic sinusitis, unspecified) pt presents today with nasal congestion with green/yellow drainage, itchy eyes, losing her voice in and out, post nasal drip coughing. Will treat for sinus infection. all questions answered. RTC as needed Ordered: triamcinolone, 40 mg = 1 mL, Injection, IntraMuscular, Once, Stop date 03/09/23 9:20:00 EDT, Routine, Start date 03/09/23 9:20:00 EDT, 03/09/23 9:20:00 EDT 2. Seasonal allergies (J30.2: Other seasonal allergic rhinitis) pt has tried zyrtec and allergy eye drops. will give kenalog in office today. RTC as needed Ordered: triamcinolone, 40 mg = 1 mL, Injection, IntraMuscular, Once, Stop date 03/09/23 9:20:00 EDT, Routine, Start date 03/09/23 9:20:00 EDT, 03/09/23 9:20:00 EDT Orders: cefuroxime, 500 mg = 1 tab(s), Oral, BID, X 7 day(s), # 14 tab(s), Refills(s) 0, Pharmacy: [facility]/pharmacy #[id number], 156.4, cm, 03/09/23 9:12:00 EDT, Height/Length Dosing, 52, kg, 03/09/23 9:12:00 EDT, Weight Dosing Follow-up No qualifying data available Problem List/Past Medical History Ongoing BMI 20.0-20.9, adult GERD (gastroesophageal reflux disease) Hiatal hernia History of endometrial cancer History of recurrent UTIs History of shingles Osteoporosis Plantar fascial fibromatosis Screening for malignant neoplasm of colon Seasonal allergies Sinusitis Historical No qualifying data Procedure/Surgical History Cholecystectomy (06/2005), [facility] - Total abdominal hysterectomy and bilateral salpingo-oophorectomy (07/2004), Biopsy of breast, Exploratory laparotomy, ORIF - Open reduction and internal fixation of fracture. Medications cefuroxime 500 mg oral tablet, 500 mg= 1 tab(s), Oral, BID Fish Oil Fosamax 70 mg Tab, 70 mg= 1 tab(s), Oral, qWeek Multi Vitamins oral tablet, 1 tab(s), Oral, Daily Allergies Actonel (Joint pain) Bee Stings (Edema) Demerol (Hallucinations) Evista (Unknown) Norflex (Syncope) codeine (Rash) erythromycin (Stomach upset) Social History Alcohol - Denies Alcohol Use, 10/21/2022 Substance Abuse - Denies Substance Abuse, 10/21/2022 Tobacco Never (less than 100 in lifetime) Tobacco Use:. Never Smokeless Tobacco Use:. Household tobacco concerns: No., 03/09/2023 Family History Heart disease: Mother. Hypertension: Mother. Osteoporosis: Mother and Father. Immunizations Vaccine Date Status Comments influenza virus vaccine, inactivated 06/2022 Recorded SARS-CoV-2 (COVID-19) mRNA-1273 vaccine 08/23/2021 Recorded 2022-10-21: [id number] SARS-CoV-2 (COVID-19) mRNA-1273 vaccine 10/10/2020 Recorded SARS-CoV-2 (COVID-19) mRNA-1273 vaccine 09/12/2020 Recorded [facility] Comment on above: Result Comment: Elec tronically Signed By: Marvin CERVANTES, Adia Alvarez\.br\Date and Time Signed: 03/09/23 09:33 EDT Outside Recordson 12-31-2022 Outside Records [id number] .[id number]:127 [facility] Outside Colonoscopyon 2022 Outside Colonoscopy [id number] .[id number]:127 [facility] Reminderson 11-06-2022 Reminders - From: Judit Ocampo LPN To: GSN - Clinical; Sent: 11/06/2022 12:32:06 EST Show up: 10/05/2032 07:00:00 EST Subject: colonoscopy recall Due Date/Time: 11/05/2032 07:00:00 EST Reminder/Recall Patient is due for screening colonoscopy 11/05/2032. [facility] Facesheeton 10-23-2022 Facesheet [id number] .[id number]:127 [facility] Consent for Procedure/Surger yon 10-22-2022 Consent for Procedure/Surgery [id number] .[id number]:127 Normal [facility] Ambulatory Visit Summaryon 0 10-21-2022 Ambulatory Visit Summary NANCY NEWBERRY :1960 Visit Date:10/21/2022 Ambulatory Visit Instructions Your Diagnosis Screening for malignant neoplasm of colon Your Care Team Attending Physician - ADELA PUENTES, Erendira Kay Primary Care Physician - CIELO PUENTES, MERLE Alanis This Is Your Medications List Contact prescribing physician if questions or concerns alendronate (Fosamax 70 mg Tab) multivitamin (Multi Vitamins oral tablet) omega-3 polyunsaturated fatty acids (Fish Oil) Procedures Performed Cholecystectomy (06/2005), [facility] - Total abdominal hysterectomy and bilateral salpingo-oophorectomy (07/2004), Biopsy of breast, Exploratory laparotomy, ORIF - Open reduction and internal fixation of fracture. Discharge Vitals Heart Rate (Peripheral) 72 Respiratory Rate 16 Blood Pressure 132/80 Height 157.48 cm Height 62 in Weight 52 kg Weight 114.4 lb BMI 20.97 Medications What How Much When Instructions Unchanged alendronate (Fosamax 70 mg Tab) 1 Tablets By Mouth Every week Contact prescribing physician if questions or concerns Unchanged multivitamin (Multi Vitamins oral tablet) 1 Tablets By Mouth Every day Contact prescribing physician if questions or concerns Unchanged omega-3 polyunsaturated fatty acids (Fish Oil) Contact prescribing physician if questions or concerns Allergies Actonel (Joint pain) Bee Stings (Edema) Demerol (Hallucinations) Evista (Unknown) Norflex (Syncope) codeine (Rash) erythromycin (Stomach upset) Problems Ongoing - Any problem that you are currently receiving treatment for. BMI 20.0-20.9, adult GERD (gastroesophageal reflux disease) Hiatal hernia History of endometrial cancer History of recurrent UTIs History of shingles Osteoporosis Plantar fascial fibromatosis Screening for malignant neoplasm of colon Normal [facility] [facility]erralon 023 Physician Referral [id number] [facility] Quantiferon-TB Plus (Client Incubated)on 09-25-2022 Gamma interferon background IA Qn (Bld) 0.16 International_Unit/mL Invalid Interpretation Code [facility] Comment on above: Performed By: #### 1 [id number], [id number] ####[facility] [address] [place] [address] M. tuberculosis stim IFN-g by CD4+ CD8+ T-cells Qn (Bld) 0.09 International_Unit/mL Invalid Interpretation Code [facility] Comment on above: Performed By: #### 1 [id number] ####[address] [place] [address] M. tuberculosis stim IFN-g by CD4+ T-cells Qn (Bld) 0.12 International_Unit/mL Invalid Interpretation Code [facility] Comment on above: Performed By: #### 1 [id number], [id number] ####[facility] [id number] M. tuberculosis stim IFN-g Ql (Bld) [Interp] Negative Invalid Interpretation Code Negative [facility] Comment on above: Result Comment: No r esponse to M tuberculosis antigens detected. Infection with M tuberculosis is unlikely, but high risk individuals should be considered for additional testing (ATS/IDSA/CDC Clinical Practice Guidelines, 2017). The reference range is an Antigen minus Nil result of <0.35 IU/mL. The specimen received for QuantiFERON testing was incubated by the ordering institution. Specific procedures outlined in our Directory of Services and in the package insert for the QuantiFERON Gold (In Tube) test must be followed to enable for proper stimulation of cells for the production of interferon gamma. Chemiluminescence immunoassay methodology Performed at: [facility] [id number] PhD Huang Kruse Performed By: #### 1 [id number], [id number], [id number], [id number] ####[address] [place] [address] Mitogen stimulated gamma interferon Qn (Bld) >10.00 Invalid Interpretation Code [facility] Comment on above: Performed By: #### 1 [id number], [id number], [id number], [id number] ####[facility] [address] [place] [address] Service comment (Unsp spec) [Interp] Comment Invalid Interpretation Code [facility] Comment on above: Result Comment: Aroldo tiFERON-TB Gold Plus is a qualitative indirect test for M tuberculosis infection (including disease) and is intended for use in conjunction with risk assessment, radiography, and other medical and diagnostic evaluations. The QuantiFERON-TB Gold Plus result is determined by subtracting the Nil value from either TB antigen (Ag) value. The Mitogen tube serves as a control for the test. Performed By: #### 1 [id number], [id number], [id number], [id number] ####[address] [place] [id number] Hep Bs Abon 09-24-2022 HBV surface Ab Ql (S) Reactive Invalid Interpretation Code [facility] Comment on above: Result Comment: Non Reactive: Inconsistent with immunity, less than 10 mIU/mL Reactive: Consistent with immunity, greater than 9.9 mIU/mL Performed at: [facility] [id number] PhD Huang Kruse Performed By: #### 1 [id number], [id number], [id number], [id number] ####[address] [place] [address] Measles/Mumps/Rubella Immuni tyon 09-24-2022 MeV IgG IA Qn (S) 29.0 A unit/mL Invalid Interpretation Code Immune >16.4 [facility] Comment on above: Result Comment: Nega tive <13.5 Equivocal 13.5 - 16.4 Positive >16.4 Presence of antibodies to Rubeola is presumptive evidence of immunity except when acute infection is suspected. Performed By: #### 1 [id number], [id number], [id number], [id number] ####Chong Gage [address] [address] MuV IgG IA Qn (S) 38.4 A unit/mL Invalid Interpretation Code Immune >10.9 [facility] Comment on above: Result Comment: Nega tive <9.0 Equivocal 9.0 - 10.9 Positive >10.9 A positive result generally indicates past exposure to Mumps virus or previous vaccination. Performed at: [address] [id number] PhD Huang Kruse Performed By: #### 1 [id number], [id number], [id number], [id number] ####[address] [address] Rubella virus IgG Qn (S) 2.98 [IU]/mL Invalid Interpretation Code Immune >0.99 [facility] Comment on above: Result Comment: Non- immune <0.90 Equivocal 0.90 - 0.99 Immune >0.99 Performed By: #### 1 [id number], [id number], [id number], [id number] ####[address] [address] Varic IgGon 09-24-2022 VZV IgG IA Qn (S) 1300 Invalid Interpretation Code Immune >165 [facility] Comment on above: Result Comment: Nega tive <135 Equivocal 135 - 165 Positive >165 A positive result generally indicates exposure to the pathogen or administration of specific immunoglobulins, but it is not indication of active infection or stage of disease. Performed at: [address] [id number] PhD Huang Kruse Performed By: #### 1 [id number], [id number], [id number], [id number] ####[address] [address] MG MAMM SCREEN 3D BHANU CADon 08-01-2022 MG MAMM SCREEN 3D BHANU CAD Patient: NANCY NEWBERRY Exam Date: 08/01/2022 : 1960 Gender:F Ordering : DR WALTER MALONE . Admission #: [id number] Family : Order #: [id number] CLICK HERE TO VIEW EXAM RADIOLOGY REPORT PROCEDURE: MAMMOGRAM SCREENING 3D BILATERAL CAD COMPARISON: MG MAMM SCREEN BHANU W CAD, 07/30/2020. MG MAMM SCREEN 3D BHANU CAD, 07/31/2021. INDICATIONS: Screening mammography Calculator Name NCI Breast Cancer Risk Assessment Tool 5 Year Breast Cancer Risk 1.30% Lifetime Breast Cancer Risk 5.70% Personal Breast Cancer No Personal Ovarian Cancer No Treatments hysterectomy Family Cancers None LOCATION: [facility] BREAST COMPOSITION: Heterogeneously dense,which may obscure small masses. FINDINGS: DIAGNOSTIC CATEGORY 1--NEGATIVE. NO CHANGE FROM COMPARISON ASSESSMENT. Scattered benign-appearing calcifications are present. RIGHT BREAST: No significant suspicious finding. LEFT BREAST: No significant suspicious finding. Stable micro clip marker upper breast on the MLO projection RECOMMENDATIONS: ROUTINE MAMMOGRAM AND CLINICAL EVALUATION IN 12 MONTHS. PLEASE NOTE: A NORMAL MAMMOGRAM DOES NOT EXCLUDE THE POSSIBILITY OF BREAST CANCER. A CLINICALLY SUSPICIOUS PALPABLE LUMP SHOULD BE BIOPSIED. Dictated by: Cyrus Soria MD on 08/01/2022 at 10:58 Approved by: Cyrus Soria MD on 08/01/2022 at 11:03 Normal [facility] PAP ACOG PANEL 2: 30 to 65on 07-23-2022 . . Normal [facility] Comment on above: Result Comment: Perf ormed at: WB Performed By: #### 4 [id number] #### [facility] [address] [place] [address] Dr. Brenda Chavis Age Gdln ACOG Testing 30-65 Normal [facility] Comment on above: Performed By: #### 4 [id number] #### [facility] [address] [address] [address] Brenda Chavis DIAGNOSIS: Comment Normal [facility] Comment on above: Result Comment: NEGA TIVE FOR INTRAEPITHELIAL LESION OR MALIGNANCY. Performed at: WB Performed By: #### 4 [id number] #### [facility] [address] [address] [address] Brenda Chavis HPV Aptima Negative Normal Negative [facility] Comment on above: Result Comment: This nucleic acid amplification test detects fourteen high-risk HPV types (16,18,31,33,35,39,45,51,52,56,58,59,66,68) without differentiation. Performed at: =G Performed By: #### 4 [id number] #### [facility] [address] [place] [address] Dr. Brenda Chavis HPV Genotype Reflex Comment Normal [facility] Comment on above: Result Comment: Crit eramy not met, HPV Genotype not performed. Performed at: WB Performed By: #### 4 [id number] #### [facility] [address] [place] [address] Dr. Brenda Chavis Methodology: Comment Normal [facility] Comment on above: Result Comment: This liquid based ThinPrep(R) pap test was screened with the use of an image guided system. Performed at: WB Performed By: #### 4 [id number] #### [facility] [address] [place] [address] Dr. Brenda Chavis Note: Comment Normal [facility] Comment on above: Result Comment: The Pap smear is a screening test designed to aid in the detection of premalignant and malignant conditions of the uterine cervix. It is not a diagnostic procedure and should not be used as the sole means of detecting cervical cancer. Both false-positive and false-negative reports do occur. . Performed at: WB Performed By: #### 4 [id number] #### [facility] [address] [place] [address] Dr. Brenda Chavis Performed by: Comment Normal [facility] Comment on above: Result Comment: Shahrzad Diaz, [place] Performed at: WB Performed By: #### 4 [id number] #### [facility] [address] [place] [address] Dr. rBenda Chavis Specimen adequacy: Comment Normal [facility] Comment on above: Result Comment: Sati sfactory for evaluation. No endocervical component is identified. Performed at: WB Performed By: #### 4 [id number] #### [facility] [address] [place] [address] Dr. Brenda Chavis Blood hemoglobin measurement (mass/volume)Ordered By: [facility] on 04-26-2022 Hemoglobin (Bld) [Mass/Vol] 14.5 g/dL 11.8-15.4 [facility] Body fluid albumin measureme nt (mass/volume)Ordered By: [facility] on 04-26-2022 Albumin (Body fld) [Mass/Vol] 4.2 g/dL 3.2-5.5 [facility] Cholesterol [Mass/volume] in Serum or PlasmaOrdered By: [facility] on 04-26-2022 Cholesterol [Mass/Vol] 270 mg/dL 140-200 [facility] Comment on above: Chol less than 200 m g/dl low risk Chol 201-239 mg/dl borderline risk Chol 240 mg/dl and greater high risk Cholesterol in LDL Calc [Mas s/Vol]Ordered By: [facility] on 04-26-2022 Cholesterol in LDL [Mass/Vol] 145 mg/dL 0-100 [facility] Comment on above: LDL ATP III CLASSIFI CATION LDL less than 100 mg/dL Optimal LDL 100-129 mg/dL Near or above optimal LDL 130-159 mg/dL Borderline high LDL 160-189 mg/dL High LDL greater than 189 mg/dL Very high Cholesterol in VLDL Calc [Ma ss/Vol]Ordered By: [facility] on 04-26-2022 Cholesterol in VLDL [Mass/Vol] 15 mg/dL [facility] Creatinine and Glomerular fi ltration rate.predicted panel (S/P/Bld)Ordered By: [facility] on 04-26-2022 Creatinine [Mass/Vol] 0.77 mg/dL 0.44-1.03 [facility] Erythrocyte distribution wid th Auto (RBC) [Ratio]Ordered By: [facility] on 04-26-2022 Erythrocyte distribution width (RBC) [Ratio] 13.2 % 11.9-15.3 [facility] Estimated glomerular filtrat ion rate (GFR) non- AmericanOrdered By: [facility] on 04-26-2022 GFR/1.73 sq M.predicted among non-blacks MDRD (S/P/Bld) [Vol rate/Area] > 60 mL/Min [facility] Hematocrit Auto (Bld) [Volum e fraction]Ordered By: [facility] on 04-26-2022 Hematocrit (Bld) [Volume fraction] 44.0 % 34.0-46.4 [facility] MCH Auto (RBC) [Entitic mass ]Ordered By: [facility] on 04-26-2022 MCH (RBC) [Entitic mass] 32.0 pg 24.7-34.3 [facility] MCHC Auto (RBC) [Mass/Vol]Or dered By: [facility] on 04-26-2022 MCHC (RBC) [Mass/Vol] 33.0 g/dL 32.0-35.0 [facility] MCV Auto (RBC) [Entitic vol] Ordered By: [facility] on 04-26-2022 MCV (RBC) [Entitic vol] 97.0 fL 80-100 F [facility] No Panel InformationOrdered By: [facility] on 04-26-2022 Estimated GFR () > 60 mL/Min [facility] Comment on above: GFR estimated refere nce range: According to KDOQI guidelines, <60 ml/min/1.73m2 is sufficient to diagnose a patient with chronic kidney disease. Pharmacy Creatinine Clearance (Chem N/A [facility] Triglycerides Reflex 78 mg/dL 35-149 [facility] Comment on above: TRIG ATP III CLASSIF ICATION TRIG less than 150 mg/dL Normal TRIG 150-199 mg/dL Borderline high TRIG 200-500 mg/dL High TRIG greater than 500 mg/dL Very high Standard traceable to the Center for Disease Conrtrol and Prevention (CDC) test method. Platelet mean volume Auto (B ld) [Entitic vol]Ordered By: [facility] on 04-26-2022 Platelet mean volume (Bld) [Entitic vol] 10.0 fL 6.3-10.7 [facility] Platelets Auto (Bld) [#/Vol] Ordered By: [facility] on 04-26-2022 Platelets (Bld) [#/Vol] 215 10*3/uL 150-450 [facility] Protein [Mass/volume] in Ser um or PlasmaOrdered By: [facility] on 04-26-2022 Protein [Mass/Vol] 6.8 g/dL 6.1-7.9 [facility] RBC Auto (Bld) [#/Vol]Ordere d By: [facility] on 04-26-2022 RBC (Bld) [#/Vol] 4.53 10*6/uL 3.60-5.00 [facility] Serum or plasma alanine ty otransferase measurement without P-5'-P (enzymatic activiOrdered By: [facility] on 04-26-2022 ALT No additional P-5'-P [Catalytic activity/Vol] 26 U/L 10-60 [facility] Serum or plasma alkaline clara sphatase measurement (enzymatic activity/volume)Ordered By: [facility] on 04-26-2022 ALP [Catalytic activity/Vol] 42 U/L 32-92 [facility] Serum or plasma aspartate am inotransferase measurement (enzymatic activity/volume)Ordered By: [facility] on 04-26-2022 AST [Catalytic activity/Vol] 30 U/L 10-42 [facility] Serum or plasma calcium shar urement (mass/volume)Ordered By: [facility] on 04-26-2022 Calcium [Mass/Vol] 9.8 mg/dL 8.2-10.2 [facility] Serum or plasma chloride jany surement (moles/volume)Ordered By: [facility] on 04-26-2022 Chloride [Moles/Vol] 102 mmol/L 95-114 [facility] Serum or plasma glucose shar urement (mass/volume)Ordered By: [facility] on 04-26-2022 Glucose [Mass/Vol] 89 mg/dL 70-100 [facility] Comment on above: ADA recommended refe rence range Random Glucose Reference Range is dependent on time and content of last meal. Glucose of more than 200 mg/dL in a nonstressed, ambulatory subject supports the diagnosis of Diabetes Mellitus. Serum or plasma high density lipoprotein (HDL) cholesterol measurementOrdered By: [facility] on 04-26-2022 Cholesterol in HDL [Mass/Vol] 109 mg/dL 35-85 [facility] Comment on above: HDL CHOL ATP-III CLA SSIFICATION Cardiovascular Risk HDL > or equal to 60 mg/dL LOW HDL < 40 mg/dL HIGH Serum or plasma potassium me asurement (moles/volume)Ordered By: [facility] on 04-26-2022 Potassium [Moles/Vol] 3.9 mmol/L 3.5-5.1 [facility] Serum or plasma sodium measu rement (moles/volume)Ordered By: [facility] on 04-26-2022 Sodium [Moles/Vol] 136 mmol/L 136-146 [facility] Serum or plasma total biliru bin measurement (mass/volume)Ordered By: [facility] on 04-26-2022 Bilirubin [Mass/Vol] 1.2 mg/dL 0.3-1.2 [facility] Serum or plasma total carbon dioxide measurement (moles/volume)Ordered By: [facility] on 04-26-2022 CO2 [Moles/Vol] 25.5 mmol/L 22.0-30.0 [facility] Serum or plasma total choles terol/high density lipoprotein (HDL) cholesterol mass ratOrdered By: [facility] on 04-26-2022 Cholesterol.total/Usha sterol in HDL [Mass ratio] 2.5 {ratio} <5.0 [facility] Serum or plasma urea nitroge n measurement (mass/volume)Ordered By: [facility] on 04-26-2022 Urea nitrogen [Mass/Vol] 16 mg/dL 9-23 [facility] WBC Auto (Bld) [#/Vol]Ordere d By: [facility] on 04-26-2022 WBC (Bld) [#/Vol] 5.2 10*3/uL 3.8-11.6 [facility] Otheron 10-29-2004 CONVERTED ELECTRONIC SIGNATURE SAMUEL CASTELLANOS M.D., PATHOLOGIST (Electronic signature on file) Final Signed Out: 10/29/2004 08:22 [facility] CONVERTED FINAL DIAGNOSIS OUTSIDE CONSULT [id number] A) UTERUS, BILATERAL OVARIES AND FALLOPIAN TUBES, EXCISION - CERVIX AND ENDOCERVIX, TOTALLY SUBMITTED - NEGATIVE FOR MALIGNANCY. ACUTE AND CHRONIC CERVICITIS. BENIGN ENDOCERVICAL GLANDULAR MUCOSA WITH MICROGLANDULAR HYPERPLASIA. ENDOMETRIUM - ENDOMETRIAL POLYP. ABNORMAL SECRETORY PHASE ENDOMETRIUM. NEGATIVE FOR MALIGNANCY. MYOMETRIUM - ADENOMYOSIS. RIGHT OVARY AND FALLOPIAN TUBE - ENDOMETRIOSIS. LEFT OVARY AND FALLOPIAN TUBE - ENDOMETRIOSIS. CORTICAL ADHESIONS. B) VAGINAL CUFF, EXCISION - BENIGN SQUAMOUS MUCOSA. C) RIGHT OBTURATOR LYMPH NODE, EXCISION - ADIPOSE TISSUE. A LYMPH NODE IS NOT IDENTIFIED. D) RIGHT ILIAC LYMPH NODE, EXCISION - ONE LYMPH NODE, NEGATIVE FOR MALIGNANCY. E) LEFT ILIAC LYMPH NODE, EXCISION - ONE LYMPH NODE, NEGATIVE FOR MALIGNANCY. F) LEFT OBTURATOR LYMPH NODE, EXCISION - ADIPOSE TISSUE. LYMPH NODE IS NOT IDENTIFIED. OUTSIDE CASE [id number] A) ENDOCERVIX, CURETTAGE - DISRUPTED FRAGMENTS OF POORLY DIFFERENTIATED ADENOCARCINOMA WITH MUCINOUS DIFFERENTIATION. A MUCIN STAIN IS POSITIVE. COMMENT: The findings may represent origin from endometrium or endocervix. A mucin stain is confirmatory of mucin production. B) ENDOMETRIUM, CURETTAGE - BENIGN ENDOMETRIAL POLYP. PROLIFERATIVE PHASE ENDOMETRIUM WITH GLANDULAR AND STROMAL BREAKDOWN. NEGATIVE FOR MALIGNANCY. COMMENT: Both cases were received for review from the [facility]. The adenocarcinoma noted within the curettage specimen dated 06/26/04 reveals a poorly differentiated adenocarcinoma. The subsequent hysterectomy specimen dated 07/15/04 does not demonstrate residual carcinoma. It is possible that the adenocarcinoma arose within an endometrial or endocervical polyp. Given the absence of stromal invasion within the cervix that was entirely submitted or within the sections of endometrium and myometrium submitted, the neoplasm may represent a carcinoma that is confined to the endometrium or endocervix. Given theuncertainty about definitive origin of the neoplasm, a stage is not assigned at this time. The carcinoma is classified as a poorly differentiated adenocarcinoma (G3) with areas of confluence. Vascular invasion is not identified. A copy of the outside report is retained within the Pathology Department at [facility]. [facility] CONVERTED ORDERING PROVIDER Ordering Provider: LULA VIERA [facility] Vital Signs Date Time Vital Sign Value Performing Clinician Ariane garcia 10-21-2022 13:02-0500 Blood Pressure Location Erendira RASTAL [facility] 10-21-2022 13:02-0500 Diastolic blood pressure 80 mm[Hg] Erendira Grid NetL [facility] 10-21-2022 13:02-0500 Heart rate 72 /min [facility] 10-21-2022 13:02-0500 Respiratory rate 16 /min Erendira Grid NetL [facility] 10-21-2022 13:02-0500 Systolic blood pressure 132 mm[Hg] Erendira Grid NetL [facility] Encounters Encounter Date Encounter Type Care Provider Facility Start: 08-25-2023 End: 08-26-2023 ambulatory PROPERTY MANAGEMENT ASSISTANT Adia L Marvin [place] [place] Start: 08-25-2023 ambulatory Erendira NILL Facility:[facility] Start: 08-25-2023 End: 08-25-2023 Lab Drop off Adia L Marvin [facility] Start: 08-19-2023 End: 08-19-2023 ambulatory JOE NUNEZ Not Available Start: 07-08-2023 End: 07-09-2023 ambulatory PROPERTY MANAGEMENT ASSISTANT Adia L Marvin Facility:[facility] Start: 05-30-2023 End: 05-30-2023 ambulatory [facility] Start: 05-30-2023 End: 05-30-2023 ambulatory MD Merle Hernandez Work Phone: [facility] Work Phone: Start: 05-30-2023 End: 05-30-2023 Departed Referred MD Merle Hernandez Work Phone: [facility] Work Phone: Start: 05-28-2023 End: 05-29-2023 ambulatory PROPERTY MANAGEMENT ASSISTANT Adia L Marvin Facility:[facility] Start: 03-09-2023 End: 03-10-2023 ambulatory PROPERTY MANAGEMENT ASSISTANT Adai L Marvin Facility:[facility] Start: 12-30-2022 ambulatory Erendira NILL Facility:[facility] Start: 11-05-2022 End: 11-06-2022 ambulatory ERENDIRA NILL Facility:[facility] Start: 10-21-2022 End: 10-22-2022 ambulatory Erendira R NILL Facility:[facility] Start: 10-21-2022 End: 10-21-2022 Patient encounter procedure Erendira R NILL [facility] Nill[facility] Start: 10-07-2022 ambulatory MERLE HERNANDEZ Facility:[facility] Start: 09-23-2022 End: 09-24-2022 ambulatory Anamaria JEAN [place] [place] Start: 08-01-2022 End: 08-02-[address] WALTER MALONE . Facility:[facility] Start: 07-15-2022 End: 07-15-[address] WALTER MALONE . Facility:[facility] Start: 04-26-2022 End: 04-26-2022 Departed Referred MD Merle Hernandez Work Phone: [facility] Start: 10-22-2004 End: 10-22-2004 Patient encounter procedure Lula Viera Work Phone: [facility] Start: 10-22-2004 Results Only Lula Quiles on Work Phone: [facility] Procedures Date Procedure Procedure Detail Performing Clinician Start: 06-14-2005 Cholecystectomy Erendira FOSTER Start: 10-22-2004 CONVERTED SURGICAL PATHOLOGY Lula Healyison Work Phone: Start: 07-15-2004 Total abdominal hyst erectomy with bilateral salpingo-oophorectomy Erendira FOSTER Biopsy of breast Erendira Alvarez Exploratory laparotomy Beto christianne FOSTER Open reduction of fr acture with internal fixation Erendira FOSTER Comment on above: left radius Immunizations Immunization Date Immunization Notes Care Provider [facility] 06-14-2022 influenza virus vaccine, unspecified formulation Erendira FOSTER [facility] 08-23-2021 SARS-CoV-2 (COVID-19 ) mRNA-1273 vaccine Erendira NILL [facility] Comment on above: Result Comment: 2022: [id number] 10-10-2020 SARS-CoV-2 (COVID-19 ) mRNA-1273 vaccine Erendira NILL [facility] 09-12-2020 SARS-CoV-2 (COVID-19 ) mRNA-1273 vaccine Erendira NILL [facility] Payers Date Payer Category Payer Self-pay [id number] 1960 Unknown [id number] 1960 Unknown [id number] 2.16.84 [id number] 1960 Unknown [id number] 2.16.84 0.1.511670.3.579.2.593 1960 Unknown [id number] 2.16.84 0.1.332281.3.579.2.593 1960 Unknown [id number] 2.16.840 .[id number] 1960 Unknown [id number] 2.16.8 40.1.900109.3.579.2.727 1960 Unknown [id number] 2.16.8 40.1.648135.3.579.2.727 1960 Unknown [id number] 2.16.8 40.1.537932.3.579.2.727 1960 Unknown [id number] 2.16.8 40.1.137783.3.579.2.727 1960 Unknown [id number] 2.16.8 40.1.048084.3.579.2.727 1959 Unknown [id number] 2.16.8 40.1.622883.3.579.2.727 1960 Unknown [id number] 2.16.8 40.1.943884.3.579.2.727 1960 Unknown [id number] 2.16.8 40.1.247527.3.579.2.727 Unknown MMO [id number] Unknown [id number] 2.16.8 40.1.695725.3.579.2.531 Social History Date Type Detail [facility] Sex Assigned At Not on file [facility] Start: 1960 Sex Assigned At Female Kirstie [facility] Start: 10-21-2022 End: 05-28-2023 Tobacco smoking status Never smoked tobacco (finding) [facility] Tobacco smoking status Never [facility] Sex Assigned At Female [facility] Functional Status Date Assessment Result Facility 10-21-2022 Functional Status N/A [facility] Evaluation + Plan note 08-25-2023 Note Date & Type Note Facility 08-25-2023 Evaluation + Plan note Diagnostic Tests PendingUrine Culture 08/25/23 [facility] Clinical Note 11-05-2022 Note Date & Type Note Facility 11-05-2022 Note OPERATIVE NOTE OPERATION DATE: 11/05/2022 PREOPERATIVE DIAGNOSIS: Colorectal screening. POSTOPERATIVE DIAGNOSIS: Normal colonoscopy to cecum. PROCEDURE: Colonoscopy to cecum. SURGEON: Erendira Foster M.D. ANESTHESIA: Monitored anesthesia care. ESTIMATED BLOOD LOSS: Zero INDICATIONS AND CONSENT: Patient is a 62-year-old female presents for colorectal screening. Indications, risks, benefits, alternatives of proceeding with colonoscopy were explained extensively to the patient, including the risks of bleeding, colon perforation or anesthetic complications. All of her questions were answered. Informed consent was obtained. PROCEDURE: Patient brought to the operating room, placed in the left lateral decubitus position. Monitored anesthesia care was provided. Rectal exam was performed which showed no masses or blood. The scope was inserted into the anal canal. Under direct visualization was advanced. With the aid of abdominal compression, it was advanced to the cecum where cecal marking were clearly identified. Upon withdrawal of the scope, mucosal surfaces were carefully examined. There were no mass lesions or polyps. No inflammatory changes or ulcerations. No significant diverticulosis. The scope was retroflexed in the anal canal. There was no significant hemorrhoidal disease. Scope was then withdrawn. Patient tolerated procedure well, was sent to recovery room in good condition. CC: Merle Hernandez M.D. [facility] Clinical Note 10-21-2022 Note Date & Type Note Facility 10-21-2022 Note Chief Complaint consultation for colonoscopy HPI Staff 62 year old female presents on consultation from Dr. Hernandez for screening colonoscopy. Denies abdominal or rectal pain. No rectal bleeding or change in bowel habits. Denies nausea or vomiting. No unexplained weight loss. Never had colonoscopy in the past. No known family history of colon cancer. History of Present Illness 62 yo female with h/o GERD, osteoporosis, referred for colorectal screening; denies change in bms or blood in stools; no abdominal complaints; denies asa or NSAID use, no SBE prophylaxis; abdominal operations significant for cholecystectomy, PATRICK, expl laparotomy; no fmhx of GI malignancy or IBD; no tobacco use. Review of Systems PHQ Score Initial Depression Screen Score: 0 ROS - Provider Constitutional: no fever, no sweats, no weight loss. Eyes: no glasses, no blurred vision, no visual loss. ENMT: no dentures, no hoarseness, no swallowing difficulties, no hearing loss, no ear infection(s), no nose bleeds. Cardiovascular: normal blood pressure, no chest pain, regular heartbeat, no heart murmur. Respiratory: no shortness of breath, no cough, no asthma, no wheezing. Gastrointestinal: no nausea, no vomiting, no diarrhea, no constipation, no blood in stool, no change in bowel habits, no abdominal pain, no hepatitis. Genitourinary: no kidney stones, no urine infection, no dysuria. Musculoskeletal: no pain, no weakness. Skin: no changing moles, no rash, no skin lumps. Neurologic: no seizures, no epilepsy, no headache. Psychiatric: no emotional or psychiatric problem. Heme/Lymph: no bleeding problems, no anemia, no blood clots, no transfusions. Allergy/Immunologic: no swollen lymph nodes/glands, no IV drug abuse. Other: Additional ROS info: Except as noted in the above Review of Systems and in the History of Present Illness, all other systems have been reviewed and are negative or noncontributory. Physical Exam Vitals & Measurements HR: 72(Peripheral) RR: 16 BP: 132/80 HT: 62 in HT: 157.48 cm WT: 52 kg WT: 114.4 lb BMI: 20.97 HEENT: normal conjunctiva, sclera clear, no scleral icterus, EOM intact, PERRLA, oral mucosa moist without lesions. Neck: trachea midline, no mass, symmetric, no thyromegaly or nodules, no adenopathy Respiratory: lungs CTA, respirations non labored. Cardiovascular: regular rate and rhythm, no murmur, no pedal edema or varicosities. Gastrointestinal: soft, non distended, no tenderness, no masses, no palpable hernias, diastasis recti no, no hepatosplenomegaly; normal bs Lymphatic: no cervical adenopathy, no supraclavicular adenopathy Musculoskeletal: normal gait, digits and nails without infection, nodes, cyanosis, clubbing. Skin: no rashes, no lesions, no ulcers, no subcutaneous nodules, induration. Psychiatric/Neuro: oriented to time, place, person, judgement normal, affect appropriate for age, insight intact, no focal deficits. Tests: review of old records completed, Discussed surgical options, risks, and possible complications with patient. Assessment/Plan 1. Screening for malignant neoplasm of colon (Z12.11: Encounter for screening for malignant neoplasm of colon) plan colonoscopy under anesthesia, informed consent obtained. Follow-up No qualifying data available Problem List/Past Medical History Ongoing BMI 20.0-20.9, adult GERD (gastroesophageal reflux disease) Hiatal hernia History of endometrial cancer History of recurrent UTIs History of shingles Osteoporosis Plantar fascial fibromatosis Screening for malignant neoplasm of colon Historical No qualifying data Procedure/Surgical History Cholecystectomy (06/2005), PATRICK BSO - Total abdominal hysterectomy and bilateral salpingo-oophorectomy (07/2004), Biopsy of breast, Exploratory laparotomy, ORIF - Open reduction and internal fixation of fracture. Medications Fish Oil Fosamax 70 mg Tab, 70 mg= 1 tab(s), Oral, qWeek Multi Vitamins oral tablet, 1 tab(s), Oral, Daily Allergies Actonel (Joint pain) Bee Stings (Edema) Demerol (Hallucinations) Evista (Unknown) Norflex (Syncope) codeine (Rash) erythromycin (Stomach upset) Social History Alcohol - Denies Alcohol Use, 10/21/2022 Substance Abuse - Denies Substance Abuse, 10/21/2022 Tobacco Never (less than 100 in lifetime) Tobacco Use:. Never Smokeless Tobacco Use:., 10/21/2022 Family History Heart disease: Mother. Hypertension: Mother. Osteoporosis: Mother and Father. Immunizations Vaccine Date Status Comments influenza virus vaccine, inactivated 06/2022 Recorded SARS-CoV-2 (COVID-19) mRNA-1273 vaccine 08/23/2021 Recorded 2022-10-21: [id number] SARS-CoV-2 (COVID-19) mRNA-1273 vaccine 10/10/2020 Recorded SARS-CoV-2 (COVID-19) mRNA-1273 vaccine 09/12/2020 Recorded [facility] Comment on above: Result Comment: Elec tronically Signed By: ADELA PUENTES, Erendira Bergman\Date and Time Signed: 10/21/22 13:30 EST Evaluation + Plan note Note Date & Type Note Facility Evaluation + Plan note No data available for this section General Surgery [facility] Evaluation note Note Date & Type Note Facility Evaluation note No assessment information availa [facility] Work Phone: Hospital Discharge instructions Note Date & Type Note Facility Hospital Discharge instructions No data available for this section General Surgery [facility] Progress note Note Date & Type Note Facility Progress note No data available for this section General Surgery [facility] Chief Complaint and Reason for Visit Chief Complaint CBC Chief Complaint CBC TSH Advance Directives No Advanced Directives Records Found Advance Directive Response Recorded Date/ Time Advance Directives No March 27 6:07pm Summary Purpose Family History No Family History Records FoundNo Family History Records FoundNo Family History Records Found No data available for this section No Family History Records Found Additional Source Comments Source Comments (unrecognize d section and content) In the event this informatio n is protected by the Federal Confidentiality of Alcohol and Drug Abuse Patient Records regulations: The Federal rules restrict any use of the information to criminally investigate or prosecute any alcohol or drug abuse patient.[facility] Care Teams (unrecognized sec tion and content) Team Status: Active Member Role Status Dates Merle Hernandez MD Primary Care Provider Active Team Status: Inactive Member Role Status Dates Merle Hernandez MD Primary Care Provider Active Outreach Community Attending Provider Active Goals (unrecognized section and content) Goals may be documented in a n alternate section No data available for this sectionGoals may be documented in an alternate section No data available for this section INFORMATION SOURCE (unrecogn ized section and content) DATE CREATED AUTHOR 11/07/2022 [facility] DATE CREATED AUTHOR AUTHOR'S ORGANIZ ATION 05/31/2023 [facility] DATE CREATED AUTHOR AUTHOR'S ORGANIZ ATION 08/21/2023 [facility] DATE CREATED AUTHOR AUTHOR'S ORGANIZ ATION 08/29/2023 [facility] FOR RECORDS PERTAINING TO PATIENTS WHO ARE OR HAVE BEEN ENROLLED IN A CHEMICAL DEPENDENCY/SUBSTANCEABUSE PROGRAM, SOME INFORMATION MAY BE OMITTED. This clinical summary was aggregated from multiple sources. Caution should be exercised in using it in the provision of clinical care. This summary normalizes information from multiple sources, and as a consequence, information in this document may materially change the coding, format and clinical context of patient data. In addition, data may be omitted in some cases. CLINICAL DECISIONS SHOULD BE BASED ON THE PRIMARY CLINICAL RECORDS. [employer] [facility]. provides no warranty or guarantee of the accuracy or completeness of information in this document.
--- NOTE | 2023-11-07 10:12 | ED_ITS ---
HPI - Wound/Laceration General Chief Complaint: Wound/Laceration Stated Complaint: CUT ON THUMB Time Seen by Provider: 11/07/23 10:12 Source: patient Mode of arrival: walk-in Limitations: no limitations History of Present Illness HPI narrative: This patient is here with a laceration to her right dominant third finger. Sustained just before arrival here at home while doing the dishes. Her last tetanus shot was 5 years ago. She does have some numbness around the finger. There is no other injury today. She is a nurse. Related Data Allergies Allergy/AdvReac Type Severity Reaction Status Date / Time codeine Allergy Unknown Verified 11/07/23 09:48 meperidine [From Demerol] Allergy Unknown Verified 11/07/23 09:48 orphenadrine [From Norflex] Allergy Unknown Verified 11/07/23 09:48 [facility] Social History Smoking status: Never smoker Exam Narrative Exam Narrative: CentimeterAwake alert very pleasant blood pressure slightly elevated. Problem focused examination shows a laceration extending from the DIP joint to the nailbed. It is a good clean linear wound. There is no ongoing bleeding. There is no devitalized tissue or contamination. Range of motion of the digit is normal. There is slight decrease sensation on her fingertip. Otherwise examination is normal Constitutional Vital Signs, click to edit/add: Last Vital Signs Pulse 104 H 11/07/23 09:48 Resp 16 11/07/23 09:48 BP 145/80 H 11/07/23 09:48 Pulse Ox 99 11/07/23 09:48 O2 Del Method Room Air 11/07/23 09:48 Course Vital Signs Vital signs: Vital Signs Pulse Rate 104 H 11/07/23 09:48 Respiratory Rate 16 11/07/23 09:48 Blood Pressure 145/80 H 11/07/23 09:48 Pulse Oximetry 99 11/07/23 09:48 Oxygen Delivery Method Room Air 11/07/23 09:48 Pulse Rate 104 H 11/07/23 09:48 Respiratory Rate 16 11/07/23 09:48 Blood Pressure 145/80 H 11/07/23 09:48 Pulse Oximetry 99 11/07/23 09:48 Oxygen Delivery Method Room Air 11/07/23 09:48 MDM - Wound/Laceration MDM Narrative Medical decision making narrative: Procedure note/after lidocaine 1% anesthesia without epinephrine bleeding was controlled with a Emmanuel drain. The wound was sterilely prepped and draped in usual fashion and cleansed with Betadine. It was then reapproximated with seven 5-0 nylon simple interrupted sutures. She tolerated procedure well wound length approximately 3 cm Discharge Plan Discharge Chief Complaint: Wound/Laceration Clinical Impression: Laceration Patient Disposition: Home, Self-Care Time of Disposition Decision: 10:13 Additional Instructions: Keep wound clean and dry. Topical antibiotic/suture removal 8 to 10 days Stand Alone Forms: Portal Instructions Referrals: CHILO ALVARES [Primary Care Provider] - 1 week
[2023-11-07] MEDS: BACITRACIN OINTMENT 28.4 GM TUBE 1 APPLIC TOPICAL (10:21)
[2023-11-07] MEDS: LIDOCAINE HCL 1% 100 MG/10 ML MDV INJ (10:22)
== END 2023-11-07 10:25 | disposition home or self-care (01) ==
PROVIDERS: Emergency Provider Emergency Medicine Emergency Medical Services; PCP Nurse Practitioner
DX: S61.212A Laceration without foreign body of right middle finger without damage to nail, initial encounter (principal); W25.XXXA Contact with sharp glass, initial encounter
CPT/HCPCS: 12001; 99282

== ENCOUNTER 2024-08-17 06:55 | Outpatient (OUT) | payer OTHER, SELFPAY ==
--- NOTE | 2024-08-17 | MM_ITS ---
Patient Name: TERRIE NEWBERRY MR#: [id number] : 1960 Exam Date: 08/17/2024 Ordering Doctor: CHILO ALVARES . RADIOLOGY REPORT PROCEDURE: MM TOMOSYNTHESIS SCREENING BI COMPARISON: MG MAMM SCREEN 3D BHANU CAD, 08/01/2022. MM TOMOSYNTHESIS SCREENING BI, 08/07/2023. INDICATIONS: Screening for malignancy of breasts Calculator Name NCI Breast Cancer Risk Assessment Tool 5 Year Breast Cancer Risk 1.40% Lifetime Breast Cancer Risk 5.40% Personal Breast Cancer No Personal Ovarian Cancer No Treatments hysterectomy Family Cancers None LOCATION: [facility] BREAST COMPOSITION: The breasts are heterogeneously dense,which may obscure small masses. FINDINGS: DIAGNOSTIC CATEGORY 1--NEGATIVE. NO CHANGE FROM COMPARISON ASSESSMENT. Scattered benign-appearing calcifications are present. Scattered benign-appearing lymph nodes are present. RIGHT BREAST: No significant suspicious finding. LEFT BREAST: No significant suspicious finding. Stable micro clip marker upper outer quadrant RECOMMENDATIONS: ROUTINE MAMMOGRAM AND CLINICAL EVALUATION IN 12 MONTHS. PLEASE NOTE: A NORMAL MAMMOGRAM DOES NOT EXCLUDE THE POSSIBILITY OF BREAST CANCER. A CLINICALLY SUSPICIOUS PALPABLE LUMP SHOULD BE BIOPSIED. Dictated by: José Miguel Soria MD on 08/17/2024 at 09:03 Approved by: José Miguel Soria MD on 08/17/2024 at 09:34
--- OUTSIDE RECORDS SUMMARY | 2024-08-17 06:57 | XMS_ITS | CCD ---
Author Organization [facility] Care Team Providers Care Cardiothoracic Surgeon Name Role Phone Unavailable Primary Care Provider MD Merle Mcneil Primary Care Provider [phone] [facility], Outreach Attending Provider MERLE HERNANDEZ Primary Care Physician [phone] ERENDIRA FOSTER Admitting Unavailable NILL, ERENDIRA Attending Unavailable CIELO ., DR MERLE Alanis Primary Care Unavailable NILL, ERENDIRA Consulting Unavailable SHARP, CARIDAD Consulting Unavailable TERELL II, DUANE Consulting Unavailable KARASIK ., DR WATSON Admitting Unavailabl e KARJASENK ., DR WATSON Attending Unavailjuan HERNANDEZ ., DR MERLE Alanis Primary Care Unavailable KARASIK ., DR WATSON Consulting Unavailabl e KARJASENK ., DR WATSON Admitting Unavailabl e KARJASENK ., DR WATSON Attending Unavailjuan HERNANDEZ ., DR MERLE Alanis Primary Care Unavailable KARASIK ., DR WATSON Consulting Unavailabl e WEST, DR CYRUS Pederson Consulting Unavailable [facility], Out[facility] Attending Unavailable [facility], Outreach Admitting Unavailable Merle Hernandez Primary Care Unavailable MD Merle Hernandez Primary Care Provider [phone] [facility], Out[facility] Attending Provider JOE NUNEZ Attending Unavailable MarvinAdia colbert Primary Care Physician Adia Wong Attending Unavailable MarvinAdia Attending Unavailable MarvinAdia Attending Unavailable MarvinAdia Attending Unavailable MarvinAdia Admitting Unavailable Marvin, Adia Alvarez Attending Unavailable Marvin, Adia Alvarez Attending Unavailable MarvinAdia Admitting Unavailable MIRANDAAnamaria Attending Unavailable MarvinAdia Attending Unavailable MarvinAdia Attending Unavailable MarvinAdia Admitting Unavailable Allergies Allergy Classification Reported Allergen(s) Allergy Type Date of Onset Reaction(s) Facility (4 sources) Bee/Wasp/Ant venom; Translations: [Bee Stings] Drug allergy Edema (finding) [facility] [place] (4 sources) Codeine; Translations: [codeine] Drug Allergy Eruption of skin (disorder) [facility] [place] (4 sources) Erythromycin; Translations: [erythromycin] Drug Allergy Stomach ache (finding) [facility] [place] (4 sources) Meperidine; Translations: [meperidine] Drug Allergy Hallucinations (finding) [facility] [place] (4 sources) Orphenadrine; Translations: [orphenadrine] Drug Allergy Syncope (disorder) [facility] [place] (4 sources) Raloxifene; Translations: [raloxifene] Drug Allergy Unknown (qualifier value) [facility] [place] (4 sources) Risedronate; Translations: [risedronate] Drug Allergy Joint pain (finding) [facility] [place] (1 source) bee venom Drug allergy (disorder) 4 [facility] (1 source) Codeine Drug Allergy 4 [facility] (1 source) Erythromycin Drug Allergy [facility] (1 source) Meperidine Drug Allergy 4 [facility] (1 source) Orphenadrine Drug Allergy 4 [facility] (1 source) Orphenadrine Drug Allergy [facility] (1 source) Raloxifene Drug Allergy [facility] (1 source) Risedronate Drug Allergy [facility] Medications Current Medications Medication Drug [...] day(s), # 21 cap(s), Refills(s) 0, Pharmacy: [facility]/pharmacy #[id number], 154, cm, 05/28/23 10:28:00 EDT, Height/Length Dosing, 50.5, kg, 05/28/23 10:28:00 EDT, Weight Dosing Start Date: 08/20/23 Stop Date: 08/27/23 Status: Ordered biotin 1 mg oral tablet (1 source) Start: 08-03-2024 take 1 tablet by mouth once daily at bedtime biotin 1000 mcg oral tablet = 1 tab(s), Oral, Once a day (at bedtime), Refills(s) 0 Start Date: 08/03/24 Status: Ordered Calcium Citrate / Vitamin D (1 source) Start: 08-03-2024 take 2 tablets by mouth once daily in the evening calcium-vitamin D 2 tab(s), Oral, qPM, Refill(s) 0 Start Date: 08/03/24 Status: Ordered cefuroxime 500 mg oral tablet (1 source) Cephalosporin Antibacterial Start: 08-25-2023 End: 09-01-2023 take 1 tablet by mouth twice daily cefuroxime 500 mg oral tablet 500 mg = 1 tab(s), Oral, BID, X 7 day(s), # 14 tab(s), Refills(s) 0, Pharmacy: [facility]/pharmacy #[id number], 154, cm, 05/28/23 10:28:00 EDT, Height/Length Dosing, 50.5, kg, 05/28/23 10:28:00 EDT, Weight Dosing Start Date: 08/25/23 Stop Date: 09/01/23 Status: Ordered estradiol 1 mg oral tablet (1 source) Estrogen Start: 08-03-2024 take 1 tablet by mouth once daily estradiol 1 mg Tab 1 mg = 1 tab(s), Oral, Daily, # 90 tab(s), Refills(s) 0, Pharmacy: [facility], 154, cm, 08/03/24 9:55:00 EST, Height/Length Dosing, 52.5, kg, 08/03/24 9:55:00 EST, Weight Dosing Start Date: 08/03/24 Status: Ordered Fish Oils (3 sources) Start: 10-21-2022 Fish Oil Refill(s) 0 Start Date: 10/21/22 Status: Ordered melatonin 5 mg oral tablet (1 source) Start: 08-03-2024 take 1 tablet by mouth once daily at bedtime melatonin 5 mg oral tablet = 1 tab(s), Oral, Once a day (at bedtime), Refills(s) 0 Start Date: 08/03/24 Status: Ordered menaquinone (1 source) Start: 08-03-2024 menaquinone Oral, Refill(s) 0 Start Date: 08/03/24 Status: Ordered Multi Vitamins oral tablet (3 sources) Start: 10-21-2022 take 1 tablet by mouth once daily Multi Vitamins oral tablet 1 tab(s), Oral, Daily, Refill(s) 0 Start Date: 10/21/22 Status: Ordered progesterone 100 mg oral capsule (1 source) Progesterone Start: 08-03-2024 take 1 capsule by mouth once daily at bedtime progesterone 100 mg oral capsule 100 mg = 1 cap(s), Oral, Once a day (at bedtime), # 90 cap(s), Refills(s) 0, Pharmacy: [facility], 154, cm, 08/03/24 9:55:00 EST, Height/Length Dosing, 52.5, kg, 08/03/24 9:55:00 EST, Weight Dosing Start Date: 08/03/24 Status: Ordered Completed/Discontinued Medications Medication Drug Class(es) Dates Sig (Normalized) Sig (Original) fluconazole 150 mg oral tablet (1 source) Azole Antifungal Start: 09-02-2023 take 4 tablets by mouth once Diflucan 150 mg Tab 150 mg = 1 tab(s), Oral, Once, take one tab on day one and one tab on day four, # 1 tab(s), Refills(s) 0, Pharmacy: [facility]/pharmacy #[id number], 154, cm, 05/28/23 10:28:00 EDT, Height/Length Dosing, 50.5, kg, 05/28/23 10:28:00 EDT, Weight Dosing Start Date: 09/02/23 Status: Ordered Problems Active Problems Problem Classification Problem Date Documented Date Episodic/Chronic Abdominal hernia (4 sources) Hiatal hernia; Translations: [Diaphragmatic hernia without obstruction or gangrene] Onset: 11-06-2022 10-15-2022 Episodic Cancer of uterus (4 sources) History of malignant neoplasm of endometrium; Translations: [Personal history of malignant neoplasm of other parts of uterus] Onset: 11-06-2022 10-15-2022 Episodic Cancer; other and unspecified primary (1 source) Personal history of malignant neoplasm of other organs and systems; Translations: [PERS HX MALIG NEOPLASM OTH ORGN AND SYS] Onset: 11-06-2022 Episodic Esophageal disorders (4 sources) Gastroesophageal reflux disease; Translations: [Gastro-esophageal reflux disease without esophagitis] Onset: 11-06-2022 10-15-2022 Chronic Genitourinary symptoms and ill-defined conditions (4 sources) History of recurrent urinary tract infection; Translations: [Personal history of urinary (tract) infections] Onset: 11-06-2022 10-15-2022 Episodic Menopausal disorders (4 sources) Menopausal and postmenopausal disorders; 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] 05-28-2023 Chronic Osteoporosis (4 sources) Osteoporosis; Translations: [Age-related osteoporosis without current pathological fracture] Onset: 11-06-2022 10-15-2022 Chronic Other aftercare (1 source) Other jail (current) drug therapy; Translations: [OT CEMENT SIDE LASTER CURRENT DRUG THERAPY] Onset: 11-06-2022 Episodic Other connective tissue disease (3 sources) Plantar fascial fibromatosis 10-15-2022 Episodic Other infections; including parasitic (3 sources) History of herpes zoster 10-15-2022 Episodic Other screening for suspected conditions (not mental disorders or infectious disease) (13 sources) Screening for malignant neoplasm of colon done; Translations: [Encounter for screening for malignant neoplasm of colon] Onset: 07-15-2022 Episodic Other upper respiratory disease (2 sources) Seasonal allergy 03-09-2023 Chronic Other upper respiratory infections (2 sources) Sinusitis 03-09-2023 Chronic Residual codes; unclassified (1 [...] ABSENCE OVARIES BILATERAL] Onset: 11-06-2022 Episodic Unclassified (3 sources) Body mass index 20-24 - normal 10-21-2022 Unclassified (8 sources) Patient encounter status 10-21-2022 Past or Other Problems Problem Classification Problem Date Documented Date Episodic/Chronic Immunizations and screening for infectious disease (1 source) Encounter for screening for human papillomavirus (HPV); Translations: [ENC SCREENING HUMAN PAPILLOMAVIRUS] Onset: 07-17-2022 Episodic Results Test Name Value Interpretation Reference Range Facility Ambulatory Visit Summaryon 1 10-03-2023 Ambulatory Visit Summary Ambulatory Visit Summary ROHITHAICHA GIVENSDAVID Alvarez :1960 Visit Date:08/03/2024 Ambulatory Visit Instructions Your Diagnosis Wellness examination Non-smoker BMI 22.0-22.9, adult Your Care Team Attending Physician - Adia Orosco Primary Care Physician - Adia Orosco This Is Your Medications List biotin (biotin 1000 mcg oral tablet) calcium-vitamin D fluconazole (Diflucan 150 mg Tab) melatonin (melatonin 5 mg oral tablet) menaquinone multivitamin (Multi Vitamins oral tablet) omega-3 polyunsaturated fatty acids (Fish Oil) Procedures Performed Cholecystectomy (06/2005), PATRICK BSO - Total abdominal hysterectomy and bilateral salpingo-oophorectomy (07/2004), Biopsy of breast, Exploratory laparotomy, ORIF - Open reduction and internal fixation of fracture. Discharge Vitals Heart Rate (Peripheral) 84 Respiratory Rate 18 Blood Pressure 116/80 Height 154.0 cm Height 61 in Weight 52.5 kg Weight 115.743 lb BMI 22.14 Medications What How Much When Instructions Unchanged biotin (biotin 1000 mcg oral tablet) 1 Tablets By Mouth Once a day (at bedtime) Unchanged calcium-vitamin D 2 Tablets By Mouth Once a day (in the evening) Unchanged fluconazole (Diflucan 150 mg Tab) 1 Tablets By Mouth Once take one tab on day one and one tab on day four Unchanged melatonin (melatonin 5 mg oral tablet) 1 Tablets By Mouth Once a day (at bedtime) Unchanged menaquinone By Mouth Unchanged multivitamin (Multi Vitamins oral tablet) 1 Tablets By Mouth Every day Unchanged omega-3 polyunsaturated fatty acids (Fish Oil) Medications and Immunizations Administered Given influenza, unspecified formulation, Allergies Actonel (Joint pain) Bee Stings (Edema) [...] colon Seasonal allergies Sinusitis Well woman exam Wellness examination Patient Survey You may receive a survey via text or e-mail asking about your office visit. Please share your experience with us by completing your survey. We appreciate your feedback and thank you for choosing us for your care. Normal [facility] CBC w/ Auto Diffon 4 Basophils/100 WBC (Bld) 1.0 % Normal 0.0-2.0 [facility] Comment on above: Performed By: #### 2 [id number] #### [facility] [address] [place] [address] Basophils/Leukocytes Auto (Bld) [Pure # fraction] 0.1 E9/L Normal 0.0-0.2 [facility] Comment on above: Performed By: #### 2 [id number] #### [facility] [address] [place] [address] Eosinophils (Bld) [#/Vol] 0.1 E9/L Normal 0.0-0.5 [facility] Comment on above: Performed By: #### 2 [id number] #### [facility] [address] [place] [address] Eosinophils/100 WBC (Bld) 1.0 % Normal 0.0-8.0 [facility] Comment on above: Performed By: #### 2 [id number] #### [facility] [address] [place] [address] Erythrocyte distribution width (RBC) [Ratio] 12.7 % Normal 10.9-14.2 [facility] Comment on above: Performed By: #### 2 [id number] #### [facility] [address] [place] [address] Hematocrit (Bld) [Volume fraction] 42.6 % Normal 34.0-46.0 [facility] Comment on above: Performed By: #### 2 [id number] #### [facility] [address] [place] [address] Hemoglobin (Bld) [Mass/Vol] 14.6 g/dL Normal 12.0-16.0 [facility] Comment on above: Performed By: #### 2 [id number] #### [facility] [address] [place] [address] Lymphocytes (Bld) [#/Vol] 1.4 E9/L Normal 1.0-4.0 [facility] Comment on above: Performed By: #### 2 650781 #### [facility] [address] [place] [address] Lymphocytes/100 WBC (Bld) 22.3 % Normal 14.0-50.0 [facility] Comment on above: Performed By: #### 2 [id number] #### [facility] [address] [place] [address] MCH (RBC) [Entitic mass] 32.4 pg Normal 27.0-34.0 [facility] Comment on above: Performed By: #### 2 [id number] #### [facility] [address] [place] [address] MCHC (RBC) [Mass/Vol] 34.3 g/dL Normal 31.4-36.0 [facility] Comment on above: Performed By: #### 2 [id number] #### [facility] [address] [place] [address] MCV (RBC) [Entitic vol] 94.4 fL Normal 80.0-100.0 [facility] Comment on above: Performed By: #### 2 [id number] #### [facility] [address] [place] [address] Monocytes (Bld) [#/Vol] 0.6 E9/L Normal 0.2-1.0 [facility] Comment on above: Performed By: #### 2 [id number] #### [facility] [address] [place] [address] Neutrophils (Bld) [#/Vol] 4.0 E9/L Normal 2.0-7.5 [facility] Comment on above: Performed By: #### 2 [id number] #### [facility] [address] [place] [address] Neutrophils/100 WBC (Bld) 65.3 % Normal 36.0-75.0 [facility] Comment on above: Performed By: #### 2 [id number] #### [facility] [address] [place] [address] Platelet 223.0 E9/L Normal 150.0-500.0 [facility] Comment on above: Performed By: #### 2 [id number] #### [facility] [address] [place] [address] Platelet mean volume (Bld) [Entitic vol] 10.2 fL Normal 6.4-10.8 [facility] Comment on above: Performed By: #### 2 [id number] #### [facility] [address] [place] [address] RBC (Bld) [#/Vol] 4.5 E12/L Normal 4.3-5.9 [facility] Comment on above: Performed By: #### 2 [id number] #### [facility] [address] [place] [address] WBC corrected for nucl RBC Auto (Bld) [#/Vol] 6.1 E9/L Normal 4.0-11.0 [facility] Comment on above: Performed By: #### 2 [id number] #### [facility] [address] [place] [address] CHEMISTRYOrdered By: SYSTEM SYSTEM on 08-03-2024 Albumin [Mass/Vol] 4.6 g/dL Normal 3.3 - 5.0 gm/dL [facility] Albumin/Globulin [Mass ratio] 1.9 {ratio} Normal 1.1 - 2.2 [facility] ALP [Catalytic activity/Vol] 50 [iU]/d Normal 21 - 98 Int._Unit/L [facility] ALT No additional P-5'-P [Catalytic activity/Vol] 27 [iU]/d Normal 6 - 46 Int._Unit/L [facility] Anion gap [Moles/Vol] 9 mmol/L Normal 6 - 16 mEq/L [facility] AST [Catalytic activity/Vol] 25 [iU]/d Normal 5 - 43 Int._Unit/L [facility] Bilirubin [Mass/Vol] 0.9 mg/dL Normal 0.0 - 1 .1 mg/dL [facility] Calcium [Mass/Vol] 9.5 mg/dL Normal 8.9 - 11. 1 mg/dL [facility] Chloride [Moles/Vol] 102 mmol/L Normal 101 - 1 11 mmol/L [facility] Cholesterol [Mass/Vol] 253 mg/dL High 120 - 200 mg/dL [facility] Cholesterol in HDL [Mass/Vol] 99 mg/dL Invalid Interpretation Code [facility] Comment on above: Result Comment: '>= 60 LOW RISK' '<= 40 HIGH RISK' Cholesterol in LDL [Mass/Vol] 137 mg/dL High <=129mg/dL [facility] Cholesterol in VLDL [Mass/Vol] 12 mg/dL Normal 7 - 40 mg/dL [facility] CO2 [Moles/Vol] 29 mmol/L Normal 21 - 31 mmol/L [facility] Creatinine [Mass/Vol] 0.7 mg/dL Normal 0.5 - 1.3 mg/dL [facility] eGFR 96 mL/min/1.73 m2 Normal >=59mL/min /1 .73 m2 [facility] Globulin (S) [Mass/Vol] 2.4 g/dL Normal 1.4 - 4.0 gm/dL [facility] Glucose [Mass/Vol] 83 mg/dL Normal 55 - 199 mg/dL [facility] Potassium [Moles/Vol] 4.3 mmol/L Normal 3.5 - 5.3 mmol/L [facility] Protein [Mass/Vol] 7.0 g/dL Normal 6.0 - 7.8 gm/dL [facility] Sodium [Moles/Vol] 136 mmol/L Normal 135 - 145 mmol/L [facility] Triglyceride [Mass/Vol] 60 mg/dL Normal <=149mg/dL [facility] TSH Qn 2.22 m[IU]/L Normal 0.34 - 5.60 mcIU/mL [facility] Urea nitrogen [Mass/Vol] 22 mg/dL High 5 - 21 mg/dL [facility] Urea nitrogen/Creatinine [Mass ratio] 31 mg/mg High - [facility] CMPon 08-03-2024 Albumin [Mass/Vol] 4.6 g/dL Normal 3.3-5.0 [facility] Comment on above: Performed By: #### 2 [id number] #### [facility] [address] [place] [address] Albumin/Globulin (S) [Mass conc ratio] 1.9 Normal 1.1-2.2 [facility] Comment on above: Performed By: #### 2 [id number] #### [facility] [address] [place] [address] ALP [Catalytic activity/Vol] 50 Int._Unit/L Normal 21-98 [facility] Comment on above: Performed By: #### 2 [id number] #### [facility] [address] [place] [address] ALT No additional P-5'-P [Catalytic activity/Vol] 27 Int._Unit/L Normal 6-46 [facility] Comment on above: Performed By: #### 2 [id number] #### [facility] [address] [place] [address] Anion gap [Moles/Vol] 9 mmol/L Normal 6-16 [facility] Comment on above: Performed By: #### 2 [id number] #### [facility] [address] [place] [address] AST [Catalytic activity/Vol] 25 Int._Unit/L Normal 5-43 [facility] Comment on above: Performed By: #### 2 [id number] #### [facility] [address] [place] [address] Bilirubin [Mass/Vol] 0.9 mg/dL Normal 0.0-1.1 [facility] Comment on above: Performed By: #### 2 019186 #### [facility] [address] [place] [address] Calcium [Mass/Vol] 9.5 mg/dL Normal 8.9-11.1 [facility] Comment on above: Performed By: #### 2 [id number] #### [facility] [address] [place] [address] Chloride [Moles/Vol] 102 mmol/L Normal 101-111 [facility] Comment on above: Performed By: #### 2 362660 #### [facility] [address] [place] [address] CO2 [Moles/Vol] 29 mmol/L Normal 21-31 [facility] Comment on above: Performed By: #### 2 036383 #### [facility] [address] [place] [address] Creatinine [Mass/Vol] 0.7 mg/dL Normal 0.5-1.3 [facility] Comment on above: Performed By: #### 2 160215 #### [facility] [address] [place] [address] Globulin (S) [Mass/Vol] 2.4 g/dL Normal 1.4-4.0 [facility] Comment on above: Performed By: #### 2 [id number] #### [facility] [address] [place] [address] Glucose [Mass/Vol] 83 mg/dL Normal 55-199 [facility] Comment on above: Performed By: #### 2 456851 #### [facility] [address] [place] [address] Potassium [Moles/Vol] 4.3 mmol/L Normal 3.5-5.3 [facility] Comment on above: Performed By: #### 2 171008 #### [facility] [address] [place] [address] Protein [Mass/Vol] 7.0 g/dL Normal 6.0-7.8 [facility] Comment on above: Performed By: #### 2 [id number] #### [facility] [address] [place] [address] Sodium [Moles/Vol] 136 mmol/L Normal 135-145 [facility] Comment on above: Performed By: #### 2 [id number] #### [facility] [address] [place] [address] Urea nitrogen [Mass/Vol] 22 mg/dL High 5-21 [facility] Comment on above: Performed By: #### 2 348963 #### [facility] [address] [place] [address] Urea nitrogen/Creatinine [Mass ratio] 31 No Units High 10-20 [facility] Comment on above: Performed By: #### 2 [id number] #### [facility] [address] [place] [address] Family Medicine Office/Clini c Noteon 08-03-2024 Family Medicine Office/Clinic Note Family Medicine Office/Clinic Note HPI Staff Nancy is a 64 year old female presenting with wellness and labs Health Maintenance: Colonoscopy: Oct 2022 Normal Dexa: 08/07/23 Mammo: 08/07/23 Pap: will have next year, last one 2021 Last Labs: 05/30/23 History of Present Illness pt presents today for wellness visit. will order labs Review of Systems PHQ Score Initial Depression Screen Score: 0 SCORE Physical Exam Vitals & Measurements HR: 84(Peripheral) RR: 18 BP: 116/80 SpO2: 97% HT: 61 in HT: 154.0 cm WT: 52.5 kg WT: 115.743 lb BMI: 22.14 General: alert, no acute distress ENMT: oral mucosa moist, no pharyngeal erythema or exudate Cardiovascular: regular rate and rhythm, normal peripheral perfusion Respiratory: Lungs CTA, respirations non labored Extremities: no deformity, no trauma Neurological: oriented x 4, LOC appropriate for age, CN II-XII intact, motor strength equal & normal bilaterally, speech normal Assessment/Plan 1. Wellness examination (Z00.00: Encounter for general adult medical examination without abnormal findings) pt presents today for wellness visit. is doing well and denies needs. will draw labs in office today Ordered: estradiol, 1 mg = 1 tab(s), Oral, Daily, # 90 tab(s), Refills(s) 0, Pharmacy: [facility], 154, cm, 08/03/24 9:55:00 EST, Height/Length Dosing, 52.5, kg, 08/03/24 9:55:00 EST, Weight Dosing progesterone, 100 mg = 1 cap(s), Oral, Once a day (at bedtime), # 90 cap(s), Refills(s) 0, Pharmacy: [facility], 154, cm, 08/03/24 9:55:00 EST, Height/Length Dosing, 52.5, kg, 08/03/24 9:55:00 EST, Weight Dosing Body Mass Index (BMI) documented 3008F Body Mass Index (BMI) documented 3008F Current tobacco non-user 1036F Depression Screening Negative 3352F Est Preventative 65+ years [address] Falls plan of care documented 0518F Influenza immunization status assessed 1030F Lab Specimen Collect 98[address] Medication list documented in medical record 1159F Most recent diastolic blood pressure 80-89 mm Hg 3079F Systolic BP <130 mm Hg (Most Recent) 3074F 2. Vaginal atrophy (N95.2: Postmenopausal atrophic vaginitis) pt is currently using compound pharmacy for vaginal inserts. would like to switch over to oral since she will be retiring next month and isn't sure what insurance will cover. Ordered: estradiol, 1 mg = 1 tab(s), Oral, Daily, # 90 tab(s), Refills(s) 0, Pharmacy: [facility], 154, cm, 08/03/24 9:55:00 EST, Height/Length Dosing, 52.5, kg, 08/03/24 9:55:00 EST, Weight Dosing progesterone, 100 mg = 1 cap(s), Oral, Once a day (at bedtime), # 90 cap(s), Refills(s) 0, Pharmacy: [facility], 154, cm, 08/03/24 9:55:00 EST, Height/Length Dosing, 52.5, kg, 08/03/24 9:55:00 EST, Weight Dosing Body Mass Index (BMI) documented 3008F Body Mass Index (BMI) documented 3008F Current tobacco non-user 1036F Depression Screening Negative 3352F Est Preventative 65+ years [address] Falls plan of care documented 0518F Influenza immunization status assessed 1030F Medication list documented in medical record 1159F Most recent diastolic blood pressure 80-89 mm Hg 3079F Systolic BP <130 mm Hg (Most Recent) 3074F 3. Menopausal symptom (N95.1: Menopausal and female climacteric states) see above Ordered: estradiol, 1 mg = 1 tab(s), Oral, Daily, # 90 tab(s), Refills(s) 0, Pharmacy: [facility], 154, cm, 08/03/24 9:55:00 EST, Height/Length Dosing, 52.5, kg, 08/03/24 9:55:00 EST, Weight Dosing progesterone, 100 mg = 1 cap(s), Oral, Once a day (at bedtime), # 90 cap(s), Refills(s) 0, Pharmacy: [facility], 154, cm, 08/03/24 9:55:00 EST, Height/Length Dosing, 52.5, kg, 08/03/24 9:55:00 EST, Weight Dosing Body Mass Index (BMI) documented 3008F Body Mass Index (BMI) documented 3008F Current tobacco non-user 1036F Depression Screening Negative 3352F Est Preventative 65+ years [address] Falls plan of care documented 0518F Influenza immunization status assessed 1030F Medication list documented in medical record 1159F Most recent diastolic blood pressure 80-89 mm Hg 3079F Systolic BP <130 mm Hg (Most Recent) 3074F 4. Non-smoker (Z78.9: Other specified health status) continue not smoking Ordered: estradiol, 1 mg = 1 tab(s), Oral, Daily, # 90 tab(s), Refills(s) 0, Pharmacy: [facility], 154, cm, 08/03/24 9:55:00 EST, Height/Length Dosing, 52.5, kg, 08/03/24 9:55:00 EST, Weight Dosing progesterone, 100 mg = 1 cap(s), Oral, Once a day (at bedtime), # 90 cap(s), Refills(s) 0, Pharmacy: [facility], 154, cm, 08/03/24 9:55:00 EST, Height/Length Dosing, 52.5, kg, 08/03/24 9:55:00 EST, Weight Dosing Body Mass Index (BMI) documented 3008F Current tobacco non-user 1036F Depression Screening Negative 3352F Est Preventative 65+ years [address] Falls plan of care documented 0518F Influenza immunization stat (more content not included)... Normal [facility] Comment on above: Result Comment: Elec tronically Signed By: Adia Orosco\.br\Date and Time Signed: 08/03/24 11:12 EST HEMATOLOGYOrdered By: SYSTEM SYSTEM on 08-03-2024 Basophils/100 WBC (Bld) 1.0 % Normal 0.0 - 2.0 % Remisol Heme Basophils/Leukocytes Auto (Bld) [Pure # fraction] 0.1 E9/L Normal 0.0 - 0.2 E9/L Remisol Heme Eosinophils (Bld) [#/Vol] 0.1 E9/L Normal 0.0 - 0.5 E9/L Remisol Heme Eosinophils/100 WBC (Bld) 1.0 % Normal 0.0 - 8.0 % Remisol Heme Erythrocyte distribution width (RBC) [Ratio] 12.7 % Normal 10.9 - 14.2 % Remisol Heme Hematocrit (Bld) [Volume fraction] 42.6 % Normal 34.0 - 46.0 % Remisol Heme Hemoglobin (Bld) [Mass/Vol] 14.6 g/dL Normal 12.0 - 16.0 gm/dL Remisol Heme Lymphocytes (Bld) [#/Vol] 1.4 E9/L Normal 1.0 - 4.0 E9/L Remisol Heme Lymphocytes/100 WBC (Bld) 22.3 % Normal 14.0 - 50.0 % Remisol Heme MCH (RBC) [Entitic mass] 32.4 pg Normal 27.0 - 34.0 pg Remisol Heme MCHC (RBC) [Mass/Vol] 34.3 g/dL Normal 31.4 - 36.0 gm/dL Remisol Heme MCV (RBC) [Entitic vol] 94.4 fL Normal 80.0 - 100.0 fL Remisol Heme Monocytes (Bld) [#/Vol] 0.6 E9/L Normal 0.2 - 1.0 E9/L Remisol Heme Monocytes/100 WBC (Bld) 10.4 % Normal 4.0 - 14.0 % Remisol Heme Neutrophils (Bld) [#/Vol] 4.0 E9/L Normal 2.0 - 7.5 E9/L Remisol Heme Neutrophils/100 WBC (Bld) 65.3 % Normal 36.0 - 75.0 % Remisol Heme Platelet 223.0 E9/L Normal 150.0 - 500.0 E9/L Remisol Heme Platelet mean volume (Bld) [Entitic vol] 10.2 fL Normal 6.4 - 10.8 fL Remisol Heme RBC (Bld) [#/Vol] 4.5 E12/L Normal 4.3 - 5.9 E12/L Remisol Heme WBC corrected for nucl RBC Auto (Bld) [#/Vol] 6.1 E9/L Normal 4.0 - 11.0 E9/L Remisol Heme Lipid Panelon 08-03-2024 Cholesterol [Mass/Vol] 253 mg/dL High 120-[address] [facility] Comment on above: Performed By: #### 2 [id number] #### [facility] [address] [place] [address] Cholesterol in HDL [Mass/Vol] 99 mg/dL Invalid Interpretation Code [facility] Comment on above: Result Comment: '>= 60 LOW RISK' '<= 40 HIGH RISK' Performed By: #### 2 [id number] #### [facility] [address] [place] [address] Cholesterol in LDL [Mass/Vol] 137 mg/dL High <=129 [facility] Comment on above: Performed By: #### 2 [id number] #### [facility] [address] [place] [address] Cholesterol in VLDL [Mass/Vol] 12 mg/dL Normal 7-40 [facility] Comment on above: Performed By: #### 2 [id number] #### [facility] [address] [place] [address] Triglyceride [Mass/Vol] 60 mg/dL Normal <=149 [facility] Comment on above: Performed By: #### 2 [id number] #### [facility] [address] [place] [address] TSHon 08-03-2024 TSH Qn 2.22 m[IU]/L Normal 0.34-5.60 [facility] Comment on above: Performed By: #### 2 [id number] #### [facility] [address] [place] [address] eGFRon 08-03-2024 eGFR 96 mL/min/1.73 m2 Normal >=59 [facility] Comment on above: Performed By: #### 1 [id number] #### [facility] [address] [place] [address] ED Note-Physicianon 11-11-19 ED Note-Physician [id number] .00TIFF Normal [facility] Consenton 11-09-2023 Consent [id number] .00TIFF Normal [facility] Nurse Consultation Noteon Nurse Consultation Note Physical Exam pt here for Tetnus vaccine, pt has cut her finger cooking at home and had 7 stitches placed to right hand middle finger. Assessment/Plan Encounter for immunization (Z23: Encounter for immunization) Medications Diflucan 150 mg Tab, 150 mg= 1 tab(s), Oral, Once Fish Oil Fosamax 70 mg Tab, 70 mg= 1 tab(s), Oral, qWeek, 1 refills Multi Vitamins oral tablet, 1 tab(s), Oral, Daily Allergies Actonel (Joint pain) Bee Stings (Edema) Demerol (Hallucinations) Evista (Unknown) Norflex (Syncope) codeine (Rash) erythromycin (Stomach upset) Immunizations Vaccine Date Status Comments tetanus-diphtheria toxoids 11/09/2023 Given influenza virus vaccine, inactivated 06/2022 Recorded SARS-CoV-2 (COVID-19) mRNA-1273 vaccine 08/23/2021 Recorded 2022-10-21: [id number] SARS-CoV-2 (COVID-19) mRNA-1273 vaccine 10/10/2020 Recorded SARS-CoV-2 (COVID-19) mRNA-1273 vaccine 09/12/2020 Recorded Normal [facility] C Urineon 08-27-2023 Bacteria identified Cx Nom (U) Microbiology PROCEDURE: Urine Culture [R1] SOURCE: U CleanCatch BODY SITE: COLLECTED DATE/TIME: 08/25/2023 08:40 EST RECEIVED DATE/TIME: 08/25/2023 17:33 EST START DATE/TIME: 08/25/2023 17:33 EST FREE TEXT SOURCE: Adia Orosco, Adia Alvarez FINAL REPORTS Final Report [] Verified Date/Time: [...] Locations R1: This test was performed at: [facility], [address] [place] [address], [id number] , [place], Normal [facility] Comment on above: Performed By: #### 2 [id number] #### [facility] [address] [place] [address] Nurse Consultation Noteon Nurse Consultation Note Physical [...] Protein Urine Dipstick: Negative (08/25/23 08:28:00) Specific [place] Urine Dipstick: 1.010 (08/25/23 08:28:00) Urine Appearance Urine Dipstick: Slightly cloudy (08/25/23 08:28:00) Urine Color Urine Dipstick: Light yellow (08/25/23 08:28:00) Urobilinogen Urine Dipstick: Normal 0.2-1 EU/dl (08/25/23 08:28:00) pH Urine Dipstick: 5.5 (08/25/23 08:28:00) Normal [facility] Alanine aminotransferase [En zymatic activity/volume] in Serum or PlasmaOrdered By: OUTREACH COMMUNITY on 05-30-2023 ALT [Catalytic activity/Vol] 22 U/L 7-52 [facility] Albumin [Mass/volume] in Ser um or Plasma by Bromocresol green (BCG) dye binding methoOrdered By: OUTREACH COMMUNITY on 05-30-2023 Albumin BCG dye [Mass/Vol] 4.7 g/dL 3.5-5.7 [facility] Alkaline phosphatase [Enzyma tic activity/volume] in Serum or PlasmaOrdered By: OUTREACH COMMUNITY on 05-30-2023 ALP [Catalytic activity/Vol] 39 U/L 34-104 [facility] Aspartate aminotransferase [ Enzymatic activity/volume] in Serum or PlasmaOrdered By: OUTREACH COMMUNITY on 05-30-2023 AST [Catalytic activity/Vol] 25 U/L 13-39 [facility] Bilirubin.total [Mass/volume ] in Serum or PlasmaOrdered By: [facility] on 05-30-2023 Bilirubin [Mass/Vol] 1.5 mg/dL 0.3-1.0 [facility] Comment on above: Samples from patient s who have taken Naproxen have shown spurious elevation in Total Bilirubin levels. A metabolite of Naproxen, O-desmethylnaproxen, has been shown to interfere with the Viridiana-Gabe method for measuring Total Bilirubin. CBC Without Differentialon 0 05-30-2023 Erythrocyte distribution width (RBC) [Ratio] 12.7 % Normal 11.9-15.3 [facility] Comment on above: Performed By: #### O UTREACH LIPID, OUTREACH TSH, OUTREACH CMP, CBCNOOUTREACH #### [address] Hematocrit (Bld) [Volume fraction] 44.7 % Normal 34.0-46.4 [facility] Comment on above: Performed By: #### O UTREACH LIPID, OUTREACH TSH, OUTREACH CMP, CBCNOOUTREACH #### [address] Hemoglobin (Bld) [Mass/Vol] 15.1 g/dL Normal 11.8-15.4 [facility] Comment on above: Performed By: #### O UTREACH LIPID, OUTREACH TSH, OUTREACH CMP, CBCNOOUTREACH #### [place] [address] [place] MCH (RBC) [Entitic mass] 32.1 pg Normal 24.7-34.3 [facility] Comment on above: Performed By: #### O UTREACH LIPID, OUTREACH TSH, OUTREACH CMP, CBCNOOUTREACH #### [address] MCV (RBC) [Entitic vol] 94.9 fL Normal 80-100 F [facility] Comment on above: Performed By: #### O UTREACH LIPID, OUTREACH TSH, OUTREACH CMP, CBCNOOUTREACH #### [address] Mean Corpuscular HGB Conc 33.8 g/dL Normal 32.0-35.0 [facility] Comment on above: Performed By: #### O UTREACH LIPID, OUTREACH TSH, OUTREACH CMP, CBCNOOUTREACH #### [address] Platelet mean volume (Bld) [Entitic vol] 9.6 fL Normal 6.3-10.7 [facility] Comment on above: Result Comment: PERF ORMED BY: [place] [address] PATHOLOGIST WORD PROCESSING SPECIALIST GO COCHRAN M.D. Performed By: #### O UTREACH LIPID, OUTREACH TSH, OUTREACH CMP, CBCNOOUTREACH #### [place] [address] [place] Platelets (Bld) [#/Vol] 214 10*3/uL Normal 150-450 [facility] Comment on above: Performed By: #### O UTREACH LIPID, OUTREACH TSH, OUTREACH CMP, CBCNOOUTREACH #### [place] [address] [place] RBC (Bld) [#/Vol] 4.71 10*6/uL Normal 3.60-5.00 [facility] Comment on above: Performed By: #### O UTREACH LIPID, OUTREACH TSH, OUTREACH CMP, CBCNOOUTREACH #### [place] [address] [place] WBC (Bld) [#/Vol] 4.7 10*3/uL Normal 3.8-11.6 [facility] Comment on above: Performed By: #### O UTREACH LIPID, OUTREACH TSH, OUTREACH CMP, CBCNOOUTREACH #### [address] CMP Outreachon 05-30-2023 Albumin [Mass/Vol] 4.7 g/dL Normal 3.5-5.7 [facility] Comment on above: Performed By: #### O UTREACH LIPID, OUTREACH TSH, OUTREACH CMP, CBCNOOUTREACH #### [facility] [address] ALP [Catalytic activity/Vol] 39 U/L Normal 34-104 [facility] Comment on above: Performed By: #### O UTREACH LIPID, OUTREACH TSH, OUTREACH CMP, CBCNOOUTREACH #### [facility] [address] ALT [Catalytic activity/Vol] 22 U/L Normal 7-52 [facility] Comment on above: Performed By: #### O UTREACH LIPID, OUTREACH TSH, OUTREACH CMP, CBCNOOUTREACH #### [facility] [address] Anion gap [Moles/Vol] 9.9 mmol/L Normal 6.0-15.0 [facility] Comment on above: Performed By: #### O UTREACH LIPID, OUTREACH TSH, OUTREACH CMP, CBCNOOUTREACH #### [facility] [address] AST [Catalytic activity/Vol] 25 U/L Normal 13-39 [facility] Comment on above: Performed By: #### O UTREACH LIPID, OUTREACH TSH, OUTREACH CMP, CBCNOOUTREACH #### [place] [id number] [place] Bilirubin [Mass/Vol] 1.5 mg/dL High 0.3-1.0 [facility] Comment on above: Result Comment: Samp les from patients who have taken Naproxen have shown spurious elevation in Total Bilirubin levels. A metabolite of Naproxen, O-desmethylnaproxen, has been shown to interfere with the Jendrcresencioik-Grof method for measuring Total Bilirubin. Performed By: #### O UTREACH LIPID, OUTREACH TSH, OUTREACH CMP, CBCNOOUTREACH #### [facility] [address] [place] [id number] [facility] Calcium [Mass/Vol] 10.0 mg/dL Normal 8.6-10.3 [facility] Comment on above: Performed By: #### O UTREACH LIPID, OUTREACH TSH, OUTREACH CMP, CBCNOOUTREACH #### [facility] [address] [place] [address] [place] Chloride [Moles/Vol] 103 mmol/L Normal 98-107 [facility] Comment on above: Performed By: #### O UTREACH LIPID, OUTREACH TSH, OUTREACH CMP, CBCNOOUTREACH #### [facility] [address] [place] [address] [place] CO2 [Moles/Vol] 29.2 mmol/L Normal 21.0-31.0 [facility] Comment on above: Performed By: #### O UTREACH LIPID, OUTREACH TSH, OUTREACH CMP, CBCNOOUTREACH #### [facility] [address] [place] [address] [place] Creatinine [Mass/Vol] 0.83 mg/dL Normal 0.60-1.20 [facility] Comment on above: Performed By: #### O UTREACH LIPID, OUTREACH TSH, OUTREACH CMP, CBCNOOUTREACH #### [facility] [address] [place] [address] [place] GFR/1.73 sq M.predicted MDRD (S/P/Bld) [Vol rate/Area] mL/min/{1.73_m2} Normal [facility] Comment on above: Performed By: #### O UTREACH LIPID, OUTREACH TSH, OUTREACH CMP, CBCNOOUTREACH #### [facility] [address] [place] [address] [place] Glucose [Mass/Vol] 89 mg/dL Normal 70-100 [facility] Comment on above: Result Comment: [place] Glucose Reference Range is dependent on time and content of last meal. Glucose of more than 200 mg/dL in a nonstressed, ambulatory subject supports the diagnosis of Diabetes Mellitus. ADA recommended reference range Performed By: #### O UTREACH LIPID, OUTREACH TSH, OUTREACH CMP, CBCNOOUTREACH #### [facility] [address] [place] [id number] [place] Potassium [Moles/Vol] 4.1 mmol/L Normal 3.5-5.1 [facility] Comment on above: Performed By: #### O UTREACH LIPID, OUTREACH TSH, OUTREACH CMP, CBCNOOUTREACH #### [facility] [address] [place] [address] [place] Protein [Mass/Vol] 7.1 g/dL Normal 6.4-8.9 [facility] Comment on above: Performed By: #### O UTREACH LIPID, OUTREACH TSH, OUTREACH CMP, CBCNOOUTREACH #### [facility] [address] [place] [address] [place] Sodium [Moles/Vol] 138 mmol/L Normal 136-145 [facility] Comment on above: Performed By: #### O UTREACH LIPID, OUTREACH TSH, OUTREACH CMP, CBCNOOUTREACH #### [facility] [address] [place] [address] [place] Urea nitrogen [Mass/Vol] 18 mg/dL Normal 7-25 [facility] Comment on above: Performed By: #### O UTREACH LIPID, OUTREACH TSH, OUTREACH CMP, CBCNOOUTREACH #### [facility] [address] [place] [address] [place] Calcium [Mass/volume] in Ser um or PlasmaOrdered By: OUTREACH COMMUNITY on 05-30-2023 Calcium [Mass/Vol] 10.0 mg/dL 8.6-10.3 [facility] Carbon dioxide, total [Moles /volume] in Serum or PlasmaOrdered By: OUTREACH COMMUNITY on 05-30-2023 CO2 [Moles/Vol] 29.2 mmol/L 21.0-31.0 [facility] Chloride [Moles/volume] in S joanie or PlasmaOrdered By: OUTREACH COMMUNITY on 05-30-2023 Chloride [Moles/Vol] 103 mmol/L 98-107 [facility] Cholesterol [Mass/volume] in Serum or PlasmaOrdered By: OUTREACH COMMUNITY on 05-30-2023 Cholesterol [Mass/Vol] 253 mg/dL 140-200 [facility] Comment on above: Chol less than 200 m g/dl low riskChol 201-239 mg/dl borderline riskChol 240 mg/dl and greater high risk Cholesterol in LDL Calc [Mas s/Vol]Ordered By: [facility] on 05-30-2023 Cholesterol in LDL [Mass/Vol] 130 mg/dL 0-100 [facility] Comment on above: LDL ATP III CLASSIFI CATIONLDL less than 100 mg/dL OptimalLDL 100-129 mg/dL Near or above optimalLDL 130-159 mg/dL Borderline highLDL 160-189 mg/dL HighLDL greater than 189 mg/dL Very high Cholesterol in VLDL Calc [Ma ss/Vol]Ordered By: [facility] on 05-30-2023 Cholesterol in VLDL [Mass/Vol] 13 mg/dL [facility] Creatinine [Mass/volume] in Serum or PlasmaOrdered By: [facility] on 05-30-2023 Creatinine [Mass/Vol] 0.83 mg/dL 0.60-1.20 [facility] Erythrocyte distribution wid th Auto (RBC) [Ratio]Ordered By: [facility] on 05-30-2023 Erythrocyte distribution width (RBC) [Ratio] 12.7 % 11.9-15.3 [facility] Glucose [Mass/volume] in Ser um or PlasmaOrdered By: [facility] on 05-30-2023 Glucose [Mass/Vol] 89 mg/dL 70-100 [facility] Comment on above: ADA recommended refe rence rangeRandom Glucose Reference Range is dependent on time and content of last meal. Glucose of more than 200 mg/dL in a nonstressed, ambulatory subject supports the diagnosis of Diabetes Mellitus. Hematocrit Auto (Bld) [Volum e fraction]Ordered By: [facility] on 05-30-2023 Hematocrit (Bld) [Volume fraction] 44.7 % 34.0-46.4 [facility] Hemoglobin [Mass/volume] in BloodOrdered By: [facility] on 05-30-2023 Hemoglobin (Bld) [Mass/Vol] 15.1 g/dL 11.8-15.4 [facility] Leukocytes [#/volume] correc mame for nucleated erythrocytes in Blood by Automated counOrdered By: [facility] on 05-30-2023 WBC corrected for nucl RBC Auto (Bld) [#/Vol] 4.7 10*3/uL 3.8-11.6 [facility] Lipid Profile Outreach Cholesterol [Mass/Vol] 253 mg/dL High 140-200 [facility] Comment on above: Result Comment: Chol less than 200 mg/dl low risk Chol 201-239 mg/dl borderline risk Chol 240 mg/dl and greater high risk Performed By: #### O UTREACH LIPID, OUTREACH TSH, OUTREACH CMP, CBCNOOUTREACH #### [facility] [address] [place] [id number] [place] Cholesterol in HDL [Mass/Vol] 110 mg/dL High 23-92 [facility] Comment on above: Result Comment: HDL CHOL ATP-III CLASSIFICATION Cardiovascular Risk HDL > or equal to 60 mg/dL LOW HDL < 40 mg/dL HIGH Performed By: #### O UTREACH LIPID, OUTREACH TSH, OUTREACH CMP, CBCNOOUTREACH #### [facility] [address] Cholesterol.total/Usha sterol in HDL [Mass ratio] 2.3 {ratio} Normal <5.0 [facility] Comment on above: Performed By: #### O UTREACH LIPID, OUTREACH TSH, OUTREACH CMP, CBCNOOUTREACH #### [facility] [address] LDL Cholesterol,Calculated 130 mg/dL High 0-100 [facility] Comment on above: Result Comment: LDL ATP III CLASSIFICATION LDL less than 100 mg/dL Optimal LDL 100-129 mg/dL Near or above optimal LDL 130-159 mg/dL Borderline high LDL 160-189 mg/dL High LDL greater than 189 mg/dL Very high Performed By: #### O UTREACH LIPID, OUTREACH TSH, OUTREACH CMP, CBCNOOUTREACH #### [facility] [address] [place] [id number] [place] Triglyceride w/Reflex 65 mg/dL Normal 0-149 [facility] Comment on above: Result Comment: TRIG ATP III CLASSIFICATION TRIG less than 150 mg/dL Normal TRIG 150-199 mg/dL Borderline high TRIG 200-500 mg/dL High TRIG greater than 500 mg/dL Very high Standard traceable to the Center for Disease Conrtrol and Prevention (CDC) test method. Performed By: #### O UTREACH LIPID, OUTREACH TSH, OUTREACH CMP, CBCNOOUTREACH #### [facility] [address] VLDL CHOLESTEROL 13 mg/dL Normal [facility] Comment on above: Performed By: #### O MING LIPID, OUTREACH TSH, OUTREACH CMP, CBCNOOUTREACH #### [facility] [address] [place] [id number] [facility] MCH Auto (RBC) [Entitic mass ]Ordered By: OUTREACH [facility] on 05-30-2023 MCH (RBC) [Entitic mass] 32.1 pg 24.7-34.3 [facility] MCHC Auto (RBC) [Mass/Vol]Or dered By: OUTREACH [facility] on 05-30-2023 MCHC (RBC) [Mass/Vol] 33.8 g/dL 32.0-35.0 [facility] MCV Auto (RBC) [Entitic vol] Ordered By: [facility] on 05-30-2023 MCV (RBC) [Entitic vol] 94.9 fL 80-100 F [facility] No Panel InformationOrdered By: OUTREACH [facility] on 05-30-2023 Estimated GFR (CKD-EPI) > 60.0 mL/Min [facility] Creatinine Clearance (Chem N/A [facility] Platelet mean volume Auto (B ld) [Entitic vol]Ordered By: [facility] on 05-30-2023 Platelet mean volume (Bld) [Entitic vol] 9.6 fL 6.3-10.7 [facility] Platelets Auto (Bld) [#/Vol] Ordered By: [facility] on 05-30-2023 Platelets (Bld) [#/Vol] 214 10*3/uL 150-450 [facility] Potassium [Moles/volume] in Serum or PlasmaOrdered By: OUTREACH [facility] on 05-30-2023 Potassium [Moles/Vol] 4.1 mmol/L 3.5-5.1 [facility] Protein [Mass/volume] in Ser um or PlasmaOrdered By: OUTREACH [facility] on 05-30-2023 Protein [Mass/Vol] 7.1 g/dL 6.4-8.9 [facility] RBC Auto (Bld) [#/Vol]Ordere d By: OUTREACH COMMUNITY on 05-30-2023 RBC (Bld) [#/Vol] 4.71 10*6/uL 3.60-5.00 [facility] Serum or plasma anion gap de terminationOrdered By: OUTREACH COMMUNITY on 05-30-2023 Anion gap [Moles/Vol] 9.9 mmol/L 6.0-15.0 [facility] Serum or plasma high density lipoprotein (HDL) cholesterol measurementOrdered By: OUTREACH COMMUNITY on 05-30-2023 Cholesterol in HDL [Mass/Vol] 110 mg/dL 23-92 [facility] Comment on above: HDL CHOL ATP-III CLA SSIFICATION Cardiovascular RiskHDL > or equal to 60 mg/dL LOWHDL < 40 mg/dL HIGH Serum or plasma total choles terol/high density lipoprotein (HDL) cholesterol mass ratOrdered By: OUTREACH COMMUNITY on 05-30-2023 Cholesterol.total/Usha sterol in HDL [Mass ratio] 2.3 {ratio} <5.0 [facility] Sodium [Moles/volume] in Ser um or PlasmaOrdered By: OUTREACH COMMUNITY on 05-30-2023 Sodium [Moles/Vol] 138 mmol/L 136-145 [facility] Thyroid Stimulating Hormoneo n 05-30-2023 TSH Qn 2.12 m[IU]/L Normal 0.45-5.33 [facility] Comment on above: Result Comment: PERF ORMED BY: [place] [address] PATHOLOGIST WORD PROCESSING SPECIALIST GO COCHRAN M.D. Performed By: #### O [facility] LIPID, OUTREACH TSH, OUTREACH CMP, CBCNOOUTREACH #### [facility] [address] Thyrotropin [Units/volume] i n Serum or PlasmaOrdered By: OUTREACH COMMUNITY on 05-30-2023 TSH Qn 2.12 m[IU]/L 0.45-5.33 [facility] Triglyceride [Mass/volume] i n Serum or PlasmaOrdered By: OUTREACH COMMUNITY on 05-30-2023 Triglyceride [Mass/Vol] 65 mg/dL 0-149 [facility] Comment on above: TRIG ATP III CLASSIF ICATIONTRIG less than 150 mg/dL NormalTRIG 150-199 mg/dL Borderline highTRIG 200-500 mg/dL High TRIG greater than 500 mg/dL Very highStandard traceable to the Center for Disease Conrtrol and Prevention (CDC) test method. Urea nitrogen [Mass/volume] in Serum or PlasmaOrdered By: OUTREACH COMMUNITY on 05-30-2023 Urea nitrogen [Mass/Vol] 18 mg/dL 7-25 [facility] MG MAMM SCREEN 3D BHANU CADon 08-01-2022 MG MAMM SCREEN 3D BHANU CAD Patient: NANCY NEWBERRY Exam Date: 08/01/2022 : 1960 Gender:F Ordering : DR WALTER MALONE . Admission #: [id number] Family : Order #: [id number] CLICK HERE TO VIEW EXAM RADIOLOGY REPORT [...] Treatments hysterectomy Family Cancers None LOCATION: [facility] BREAST COMPOSITION: Heterogeneously dense,which may obscure [...] Soria MD on 08/01/2022 at 11:03 Normal [facility] PAP ACOG PANEL 2: 30 to 65on 07-23-2022 . . Normal [facility] Comment on above: Result Comment: Perf ormed at: WB Performed By: #### [id number] #### [facility] [address] [place] [address] [address] Brenda Chavis Age Gdln ACOG Testing 30-65 Normal [facility] Comment on above: Performed By: #### 4 [id number] #### [facility] [address] [place] [address] Dr. Brenda Chavis DIAGNOSIS: Comment Normal [facility] Comment on above: Result Comment: NEGA TIVE FOR INTRAEPITHELIAL LESION OR MALIGNANCY. Performed at: WB Performed By: #### 4 [id number] #### [facility] [address] [place] [address] Dr. Brenda Chavis HPV Aptima Negative Normal Negative [facility] Comment on above: Result Comment: This nucleic acid amplification test detects fourteen high-risk HPV types (16,18,31,33,35,39,45,51,52,56,58,59,66,68) without differentiation. Performed at: =G Performed By: #### 4 [id number] #### [facility] [address] [place] [address] Dr. Brenda Chavis HPV Genotype Reflex Comment Normal [facility] Comment on above: Result Comment: Crit eria not met, HPV Genotype not performed. Performed at: WB Performed By: [id number] #### [facility] [address] [place] [address] Dr. Brenda Chavis Methodology: Comment Normal [facility] Comment on above: Result Comment: This liquid based ThinPrep(R) pap test was screened with the use of an image guided system. Performed at: WB Performed By: #### [id number] #### [facility] [address] [place] [address] Dr. Brenda Chavis Note: Comment Normal [facility] Comment on above: Result Comment: The Pap smear is a screening test designed to aid in the detection of premalignant and malignant conditions of the uterine cervix. It is not a diagnostic procedure and should not be used as the sole means of detecting cervical cancer. Both false-positive and false-negative reports do occur. . Performed at: WB Performed By: [id number] #### [facility] [address] [place] [address] Dr. Brenda Chavis Performed by: Comment Normal [facility] Comment on above: Result Comment: Shahrzad Diaz, Supervisor [employer] Performed at: WB Performed By: #### [id number] #### [facility] [address] [address] [address] Brenda Chavis Specimen adequacy: Comment Normal [facility] Comment on above: Result Comment: Sati sfactory for evaluation. No endocervical component is identified. Performed at: WB Performed By: #### [id number] #### [facility] [address] [address] [address] Brenda Chavis Blood hemoglobin measurement (mass/volume)Ordered By: [facility] on 04-26-2022 Hemoglobin (Bld) [Mass/Vol] 14.5 g/dL 11.8-15.4 [facility] Body fluid albumin measureme nt (mass/volume)Ordered By: [facility] on 04-26-2022 Albumin (Body fld) [Mass/Vol] 4.2 g/dL 3.2-5.5 [facility] Cholesterol [Mass/volume] in Serum or PlasmaOrdered By: [facility] on 04-26-2022 Cholesterol [Mass/Vol] 270 mg/dL 140-200 [facility] Comment on above: Chol less than 200 m g/dl low risk Chol 201-239 mg/dl borderline risk Chol 240 mg/dl and greater high risk Cholesterol in LDL Calc [Mas s/Vol]Ordered By: [facility] on 04-26-2022 Cholesterol in LDL [Mass/Vol] 145 mg/dL 0-100 [facility] Comment on above: LDL ATP III CLASSIFI CATION LDL less than 100 mg/dL Optimal LDL 100-129 mg/dL Near or above optimal LDL 130-159 mg/dL Borderline high LDL 160-189 mg/dL High LDL greater than 189 mg/dL Very high Cholesterol in VLDL Calc [Ma ss/Vol]Ordered By: [facility] on 04-26-2022 Cholesterol in VLDL [Mass/Vol] 15 mg/dL [facility] Creatinine and Glomerular fi ltration rate.predicted panel (S/P/Bld)Ordered By: [facility] on 04-26-2022 Creatinine [Mass/Vol] 0.77 mg/dL 0.44-1.03 [facility] Erythrocyte distribution wid th Auto (RBC) [Ratio]Ordered By: [facility] on 04-26-2022 Erythrocyte distribution width (RBC) [Ratio] 13.2 % 11.9-15.3 [facility] Estimated glomerular filtrat ion rate (GFR) non- AmericanOrdered By: [facility] on 04-26-2022 GFR/1.73 sq M.predicted among non-blacks MDRD (S/P/Bld) [Vol rate/Area] > 60 mL/Min [facility] Hematocrit Auto (Bld) [Volum e fraction]Ordered By: [facility] on 04-26-2022 Hematocrit (Bld) [Volume fraction] 44.0 % 34.0-46.4 [facility] MCH Auto (RBC) [Entitic mass ]Ordered By: [facility] on 04-26-2022 MCH (RBC) [Entitic mass] 32.0 pg 24.7-34.3 [facility] MCHC Auto (RBC) [Mass/Vol]Or dered By: [facility] on 04-26-2022 MCHC (RBC) [Mass/Vol] 33.0 g/dL 32.0-35.0 [facility] MCV Auto (RBC) [Entitic vol] Ordered By: [facility] on 04-26-2022 MCV (RBC) [Entitic vol] 97.0 fL 80-100 [facility] No Panel InformationOrdered By: [facility] on 04-26-2022 Estimated GFR () > 60 mL/Min [facility] Comment on above: GFR estimated refere nce range: According to KDOQI guidelines, <60 ml/min/1.73m2 is sufficient to diagnose a patient with chronic kidney disease. Pharmacy Creatinine Clearance (Chem N/A [facility] Triglycerides Reflex 78 mg/dL 35-149 [facility] Comment on above: TRIG ATP III CLASSIF ICATION TRIG less than 150 mg/dL Normal TRIG 150-199 mg/dL Borderline high TRIG 200-500 mg/dL High TRIG greater than 500 mg/dL Very high Standard traceable to the Center for Disease Conrtrol and Prevention (CDC) test method. Platelet mean volume Auto (B ld) [Entitic vol]Ordered By: [facility] on 04-26-2022 Platelet mean volume (Bld) [Entitic vol] 10.0 fL 6.3-10.7 [facility] Platelets Auto (Bld) [#/Vol] Ordered By: [facility] on 04-26-2022 Platelets (Bld) [#/Vol] 215 10*3/uL 150-450 [facility] Protein [Mass/volume] in Ser um or PlasmaOrdered By: [facility] on 04-26-2022 Protein [Mass/Vol] 6.8 g/dL 6.1-7.9 [facility] RBC Auto (Bld) [#/Vol]Ordere d By: [facility] on 04-26-2022 RBC (Bld) [#/Vol] 4.53 10*6/uL 3.60-5.00 [facility] Serum or plasma alanine ty otransferase measurement without P-5'-P (enzymatic activiOrdered By: [facility] on 04-26-2022 ALT No additional P-5'-P [Catalytic activity/Vol] 26 U/L 10-60 [facility] Serum or plasma alkaline clara sphatase measurement (enzymatic activity/volume)Ordered By: [facility] on 04-26-2022 ALP [Catalytic activity/Vol] 42 U/L 32-92 [facility] Serum or plasma aspartate am inotransferase measurement (enzymatic activity/volume)Ordered By: [facility] on 04-26-2022 AST [Catalytic activity/Vol] 30 U/L 10-42 [facility] Serum or plasma calcium shar urement (mass/volume)Ordered By: [facility] on 04-26-2022 Calcium [Mass/Vol] 9.8 mg/dL 8.2-10.2 [facility] Serum or plasma chloride jany surement (moles/volume)Ordered By: [facility] on 04-26-2022 Chloride [Moles/Vol] 102 mmol/L 95-114 [facility] Serum or plasma glucose shar urement (mass/volume)Ordered By: [facility] on 04-26-2022 Glucose [Mass/Vol] 89 mg/dL 70-100 [facility] Comment on above: ADA recommended refe rence range Random Glucose Reference Range is dependent on time and content of last meal. Glucose of more than 200 mg/dL in a nonstressed, ambulatory subject supports the diagnosis of Diabetes Mellitus. Serum or plasma high density lipoprotein (HDL) cholesterol measurementOrdered By: [facility] on 04-26-2022 Cholesterol in HDL [Mass/Vol] 109 mg/dL 35-85 [facility] Comment on above: HDL CHOL ATP-III CLA SSIFICATION Cardiovascular Risk HDL > or equal to 60 mg/dL LOW HDL < 40 mg/dL HIGH Serum or plasma potassium me asurement (moles/volume)Ordered By: [facility] on 04-26-2022 Potassium [Moles/Vol] 3.9 mmol/L 3.5-5.1 [facility] Serum or plasma sodium measu rement (moles/volume)Ordered By: [facility] on 04-26-2022 Sodium [Moles/Vol] 136 mmol/L 136-146 [facility] Serum or plasma total biliru bin measurement (mass/volume)Ordered By: [facility] on 04-26-2022 Bilirubin [Mass/Vol] 1.2 mg/dL 0.3-1.2 [facility] Serum or plasma total carbon dioxide measurement (moles/volume)Ordered By: [facility] on 04-26-2022 CO2 [Moles/Vol] 25.5 mmol/L 22.0-30.0 [facility] Serum or plasma total choles terol/high density lipoprotein (HDL) cholesterol mass ratOrdered By: [facility] on 04-26-2022 Cholesterol.total/Usha sterol in HDL [Mass ratio] 2.5 {ratio} <5.0 [facility] Serum or plasma urea nitroge n measurement (mass/volume)Ordered By: [facility] on 04-26-2022 Urea nitrogen [Mass/Vol] 16 mg/dL 9-23 [facility] WBC Auto (Bld) [#/Vol]Ordere d By: [facility] on 04-26-2022 WBC (Bld) [#/Vol] 5.2 10*3/uL 3.8-11.6 [facility] Otheron 10-29-2004 CONVERTED ELECTRONIC SIGNATURE SAMUEL CASTELLANOS M.D., PATHOLOGIST (Electronic signature on file) Final Signed Out: 10/29/2004 08:22 [facility] CONVERTED FINAL DIAGNOSIS OUTSIDE CONSULT [id number] A) UTERUS, BILATERAL OVARIES AND FALLOPIAN TUBES, [...] LYMPH NODE IS NOT IDENTIFIED. 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 A MUCIN STAIN IS POSITIVE. COMMENT: The findings may represent origin from endometrium or endocervix. A mucin stain is confirmatory of mucin production. B) ENDOMETRIUM, CURETTAGE - BENIGN ENDOMETRIAL POLYP. PROLIFERATIVE PHASE ENDOMETRIUM WITH GLANDULAR AND STROMAL BREAKDOWN. NEGATIVE FOR MALIGNANCY. COMMENT: Both cases [facility]. The adenocarcinoma noted within the curettage [...] is retained within the Pathology Department at [facility]. [facility] CONVERTED ORDERING PROVIDER Ordering Provider: LULA VIERA [facility] Vital Signs Date Time Vital Sign Value Performing Clinician Ariane garcia 10-21-2022 13:02-0500 Blood Pressure Location Erendira FOSTER [facility] 10-21-2022 13:02-0500 Diastolic blood pressure 80 mm[Hg] Erendira FOSTER [facility] 10-21-2022 13:02-0500 Heart rate 72 /min Erendira FOSTER [facility] [place] 10-21-2022 13:02-0500 Respiratory rate 16 /min Erendira FOSTER [facility] [place] 10-21-2022 13:02-0500 Systolic blood pressure 132 mm[Hg] Erendira FOSTER [facility] [place] Encounters Encounter Date Encounter Type Care Provider Facility Start: 08-03-2024 End: 08-03-2024 ambulatory Adia L Marvin Facility:[facility] [place] Start: 08-03-2024 End: 08-03-2024 ambulatory Adia L Marvin Facility:[facility] Start: 08-03-2024 End: 08-03-2024 Lab Drop off Adia L Marvin [facility] Start: 06-27-2024 End: 06-27-2024 ambulatory Adia L Marvin Facility:[facility] [place] Start: 12-29-2023 End: 12-29-2023 ambulatory Anamaria JEAN Facility:[facility] Start: 11-09-2023 End: 11-09-2023 ambulatory Adia L Marvin Facility:[facility] [place] Start: 08-25-2023 End: 08-25-2023 Lab Drop off Adia L Marvin [facility] Start: 08-25-2023 End: 08-25-2023 ambulatory Adia L Marvin Facility:[facility] Start: 08-25-2023 ambulatory Adia L Marvin Facility: [facility] [place] Start: 08-19-2023 End: 08-19-2023 ambulatory JOE NUNEZ Not Available Start: 05-30-2023 End: 05-30-2023 ambulatory Outreach Community Facility:[facility] Start: 05-30-2023 End: 05-30-2023 ambulatory MD Merle Hernandez Work Phone: [facility] Work Phone: Start: 05-30-2023 End: 05-30-2023 Departed Referred MD Merle Hernandez Work Phone: [facility] Work Phone: Start: 11-05-2022 End: 11-05-2022 ambulatory ERENDIRA FOSTER Facility:[facility] Start: 10-21-2022 End: 10-21-2022 Patient encounter procedure Erendira FOSTER [facility] [place] Start: 08-01-2022 End: 08-02-[address] WALTER MALONE . Facility:[facility] Start: 07-15-2022 End: 07-15-[address] WALTER MALONE . Facility:[facility] Start: 04-26-2022 End: 04-26-2022 Departed Referred MD Merle Hernandez Work Phone: [facility] Start: 10-22-2004 End: 10-22-2004 Patient encounter procedure Lula Viera Work Phone: [facility] Start: 10-22-2004 Results Only Lula Quiles on Work Phone: [facility] Procedures Date Procedure Procedure Detail Performing Clinician Start: 06-14-2005 Cholecystectomy Erendira FOSTER Start: 10-22-2004 CONVERTED SURGICAL PATHOLOGY Lula Viera Work Phone: Start: 07-15-2004 Total abdominal hyst erectomy with bilateral salpingo-oophorectomy Erendira FOSTER Biopsy of breast Erendira Alvarez Exploratory laparotomy Beto christianne FOSTER Open reduction of fr acture with internal fixation Erendira FOSTER Comment on above: left radius Immunizations Immunization Date Immunization Notes Care Provider Fa cility 11-09-2023 tetanus and diphther ia toxoids, adsorbed, preservative free, for adult use (5 Lf of tetanus toxoid and 2 Lf of diphtheria toxoid) Adia Wong [facility] 06-14-2022 influenza virus vaccine, unspecified formulation Erendira FOSTER [facility] 06-14-2022 influenza, unspecifi ed formulation Adia Wong [facility] 08-23-2021 SARS-CoV-2 (COVID-19 ) mRNA-1273 vaccine Erendira MAGDALENOIndelsul [facility] Comment on above: Result Comment: 2022: [id number] 10-10-2020 SARS-CoV-2 (COVID-19 ) mRNA-1273 vaccine Erendira FOSTER [facility] 09-12-2020 SARS-CoV-2 (COVID-19 ) mRNA-1273 vaccine Erendira FOSTER [facility] Payers Date Payer Category Payer Unknown [id number] 2023 Self-pay [id number] 1960 Unknown [id number] 1960 Unknown [id number] 2.16.84 [id number] 1959 Unknown [id number] 2.16.84 [id number] 1959 Unknown [id number] 2.16.84 [id number] 1959 Unknown [id number] 2.16.840 .[id number] 1959 Unknown [id number] 2.16.8 [id number] 1959 Unknown [id number] 2.16.8 [id number] 1959 Unknown [id number] 2.16.8 [id number] 1959 Unknown [id number] 2.16.8 [id number] 1959 Unknown [id number] 2.16.8 [id number] 1959 Unknown [id number] 2.16.8 [id number] 1959 Unknown [id number] 2.16.8 [id number] Unknown O [id number] Unknown [id number] 2.16.8 [id number] Social History Date Type Detail [facility] Sex Assigned At Not on file [facility] Start: 1960 Sex Assigned At Female [facility] Start: 10-21-2022 End: 08-03-2024 Tobacco smoking status Never smoked tobacco (finding) [facility] [place] Tobacco smoking status Never Gener [facility] [place] Sex Assigned At Female [facility] Functional Status Date Assessment Result Facility 10-21-2022 Functional Status N/A [facility] [place] Evaluation + Plan note 08-25-2023 Note Date & Type Note Facility 08-25-2023 Evaluation + Plan note Diagnostic Tests PendingUrine Culture 08/25/23 [facility] Clinical Note 11-05-2022 Note Date & [...] good condition. CC: Merle Hernandez M.D. [facility] Evaluation + Plan note Note Date & Type Note Facility Evaluation + Plan note No data available for this section [facility] [place] Evaluation note Note Date & Type Note Facility Evaluation note No assessment information availa [facility] Work Phone: Hospital Discharge instructions Note Date & Type Note Facility Hospital Discharge instructions No data available for this section [facility] [place] Progress note Note Date & Type Note Facility Progress note No data available for this section [facility] [place] Chief Complaint and Reason for Visit Chief Complaint CBC Chief Complaint CBC TSH Advance Directives No Advanced Directives Records Found Advance Directive Response Recorded Date/ Time Advance Directives No March 27 6:07pm Summary Purpose Family History No Family History Records FoundNo Family History Records FoundNo Family History Records Found No data available for this section No data available for this section No Family History Records FoundNo Family History Records FoundNo Family History Records FoundNo Family History Records FoundNo Family History Records FoundNo Family History Records Found Additional Source Comments Source Comments (unrecognize d section and content) In the event this informatio n is protected by the Federal Confidentiality of Alcohol and Drug Abuse Patient Records regulations: The Federal rules restrict any use of the information to criminally investigate or prosecute any alcohol or drug abuse patient.[facility] Care Teams (unrecognized sec tion and [...] section No data available for this section No data available for this section INFORMATION SOURCE (unrecogn ized section and content) DATE CREATED AUTHOR 11/07/2022 [facility] DATE CREATED AUTHOR AUTHOR'S ORGANIZ ATION 05/31/2023 [facility] DATE CREATED AUTHOR AUTHOR'S ORGANIZ ATION 08/21/2023 [facility] DATE CREATED AUTHOR AUTHOR'S ORGANIZ ATION 08/05/2024 Chong Igor [facility] DATE CREATED AUTHOR AUTHOR'S ORGANIZ ATION 08/06/2024 [facility] DATE CREATED AUTHOR AUTHOR'S ORGANIZ ATION 08/09/2024 [facility] FOR RECORDS PERTAINING TO PATIENTS WHO ARE [...] BE BASED ON THE PRIMARY CLINICAL RECORDS. [employer] provides no warranty or guarantee of the accuracy or completeness of information in this document.
== END 2024-08-17 06:56 | disposition home or self-care (01) ==
LOC: MAMMO 06:55
PROVIDERS: PCP Nurse Practitioner; Visit Provider Nurse Practitioner
DX: Z12.31 Encounter for screening mammogram for malignant neoplasm of breast (principal)
CPT/HCPCS: 77063; 77067

== ENCOUNTER 2025-08-21 09:45 | Outpatient (OUT) | payer MEDICARE, OTHER, SELFPAY ==
--- OUTSIDE RECORDS SUMMARY | 2025-08-21 09:50 | XMS_ITS | CCD ---
Author Organization [facility] Care Team Providers Care Information Director Name Role Phone Unavailable Primary Care Provider MD Merle Mcneil Primary Care Provider [facility], Outreach Attending Provider [phone] MERLE HERNANDEZ Primary Care Physician ERENDIRA FOSTER Admitting Unavailable ADELA, ERENDIRA Attending Unavailable CIELO ., DR MERLE Lazaro Primary Care Unavailable ERENDIRA FOSTER Consulting Unavailable SHARPCARIDAD Consulting Unavailable TERELL II, DUANE Consulting Unavailable KARASIK ., DR WATSON Admitting Unavailjuan e KARJENNIFER ., DR WATSON Attending Unavailjuan HERNANDEZ ., DR MERLE Lazaro Primary Care Unavailable KARASIK ., DR WATSON Consulting Unavailjuan MALONE ., DR WATSON Admitting Unavailjuan lazaro KARJASENK ., DR WATSON Attending Unavailjuan HERNANDEZ ., DR MERLE Lazaro Primary Care Unavailable KARASIK ., DR WATSON Consulting Unavailjuan ANDREWS, DR CYRUS Pederson Consulting Unavailable MD Merle Hernandez Primary Care Provider [phone] [facility], Outreach Attending Provider [phone] JOE NUNEZ Attending Unavailable Adia Wong Primary Care Physician [phone] Opal Archibald APRN Attending Provider [phone] Opal Archibald Attending Unavailable Opal Archibald Admitting Unavailable Marvin, Adia Alvarez Admitting Unavailable Marvin, Adia Alvarez Attending Unavailable Marvin, Adia Alvarez Attending Unavailable Marvin, Aida Alvarez Attending Unavailable Marvin, Adia Alvarez Admitting Unavailable Marvin, Adia Alvarez Attending Unavailable Marvin, Adia Alvarez Attending Unavailable MarvinAdia Attending Unavailable Allergies Allergy ClassificationReported Allergen(s)Allergy TypeDate of OnsetReaction(s) Facility (5 sources)Bee/Wasp/Ant venom; Translations: [Bee Stings]Drug allergyEdema (finding)[facility] [place] (5 sources)Codeine; Translations: [codeine]Drug AllergyEruption of skin (disorder)[facility] [place] (5 sources)Erythromycin; Translations: [erythromycin]Drug AllergyStomach ache (finding)[facility] [place] (7 sources)Meperidine; Translations: [meperidine]Drug Kkyssrs72-76-6148 Hallucinations (finding)[facility] [place] (7 sources)Orphenadrine; Translations: [orphenadrine]Drug Sjvxqco60-13-1935 Syncope (disorder)[facility] [place] (5 sources)Raloxifene; Translations: [raloxifene]Drug AllergyUnknown (qualifier value)[facility] [place] (5 sources)Risedronate; Translations: [risedronate]Drug AllergyJoint pain (finding)[facility] [place] (1 source)bee venomDrug allergy (disorder)18-05-1065Msq [facility] (1 source)CodeineDrug Bzcuwxt96-47-2376Nsh [facility] (1 source)ErythromycinDrug AllergyThe [facility] (1 source)MeperidineDrug Zgcrpmm08-51-5565Pxj [facility] (1 source)OrphenadrineDrug Ccifexn17-28-7758Dpq [facility] (1 source)OrphenadrineDrug AllergyThe [facility] (1 source)RaloxifeneDrug AllergyThe [facility] (1 source)RisedronateDrug AllergyThe [facility] (3 sources)Alendronate; Translations: [alendronate sodium]Drug Bfxzdli94-65-0568 [facility] (3 sources)Ibadronate; Translations: [ibandronate sodium]Drug Rwlgroh01-08-5190 [facility] (3 sources)venom-honey bee; Translations: [venom-honey bee]Allergy to substance 29-28-8365NqbipjjarjkKaaihzltvAk[facility] (1 source)MeperidineDrug Gimekxz61-29-3122FmwixftapOhio[facility] (1 source)OrphenadrineDrug Hcdffjm68-10-2769UfwswikzsOhiohealth [facility]ide [facility] Medications Current Medications MedicationDrug Class(es)DatesSig (Normalized)Sig (Original)alendronic acid 70 mg oral tablet (2 sources)BisphosphonateStart: 45-57-0300ontz 1 tablet by mouth every week Fosamax 70 mg Tab 70 mg = 1 tab(s), Oral, qWeek, # 12 tab(s), Refills(s) 1, Pharmacy: [facility], 156.4, cm, 03/09/23 9:12:00 EDT, Height/Length Dosing, 52, kg, 03/09/23 9:12:00 EDT, Weight Dosing Start Date: 05/05/23 Status: OrderedStart: 01-05-5617cesd 1 tablet by mouth every weekFosamax 70 mg Tab 70 mg = 1 tab(s), Oral, qWeek, Refills(s) 0 Start Date: 10/15/22 Status: Orderedamoxicillin 500 mg oral capsule (1 source)Penicillin-class AntibacterialStart: 08-20-2023 End: 59-00-4622ptir 1 capsule by mouth three times dailyamoxicillin 500 mg Cap 500 mg = 1 cap(s), Oral, TID, X 7 day(s), # 21 cap(s), Refills(s) 0, Pharmacy: [facility] #[id number], 154, cm, 05/28/23 10:28:00 EDT, Height/Length Dosing, 50.5, kg, 05/28/23 10:28:00 EDT, Weight Dosing Start Date: 08/20/23 Stop Date: 08/27/23 Status: OrderedBiotin (3 sources)Start: 74-19-9825vdrhpb Active PO November 26, 2024 12:00amStart: 16-78-1498tinu 1 tablet by mouth once daily at bedtimebiotin 1000 mcg oral tablet = 1 tab(s), Oral, Once a day (at bedtime), Refills(s) 0 Start Date: 07/16 Status: OrderedCalcium (2 sources)Phosphate Binder, CalciumStart: 98-22-6049frkahfm (calcium citrate) Active PO November 26, 2024 12:00amCalcium Citrate / Vitamin D (1 source)Start: 15-24-1421fpzc 2 tablets by mouth once daily in the evening calcium-vitamin D 2 tab(s), Oral, qPM, Refill(s) 0 Start Date: 08/03/24 Status: Orderedcefuroxime 500 mg oral tablet (1 source)Cephalosporin AntibacterialStart: 08-25-2023 End: 14-86-4757luhq 1 tablet by mouth twice dailycefuroxime 500 mg oral tablet 500 mg = 1 tab(s), Oral, BID, X 7 day(s), # 14 tab(s), Refills(s) 0, Pharmacy: [facility]/pharm[facility] #[id number], 154, cm, 05/28/23 10:28:00 EDT, Height/Length Dosing, 50.5, kg, 05/28/23 10:28:00 EDT, Weight Dosing Start Date: 08/25/23 Stop Date: 09/01/23 Status: OrderedCholecalciferol (2 sources)Vitamin DStart: 34-68-4281ojcfzobnevwferc (vitamin D3) Active PO November 26, 2024 12:00amestradiol 0.5 mg oral tablet (3 sources)EstrogenStart: 99-80-2461ritz 1 tablet by mouth once dailyEstradiol 0.5 mg tablet Active 0.5 MG PO Daily November 26, 2024 12:00am off 5 days; repeat cycleStart: 47-47-7343hdmx 1 tablet by mouth once dailyestradiol 1 mg Tab 1 mg = 1 tab(s), Oral, Daily, # 90 tab(s), Refills(s) 0, Pharmacy: [facility], 154, cm, 08/03/24 9:55:00 EST, Height/Length Dosing, 52.5, kg, 08/03/24 9:55:00 EST, Weight Dosing Start Date: 08/03/24 Status: OrderedFish Oils (3 sources)Start: 63-55-1563Jvyz Oil Refill(s) 0 Start Date: 10/21/22 Status: OrderedMagnesium glycinate (2 sources)Start: 38-31-2801twscttmqg glycinate Active PO November 26, 2024 12:00ammelatonin 5 mg oral tablet (1 source)Start: 40-00-7537afxo 1 tablet by mouth once daily at bedtimemelatonin 5 mg oral tablet = 1 tab(s), Oral, Once a day (at bedtime), Refills(s) 0 Start Date: 08/03/24 Status: Orderedmenaquinone (1 source)Start: 56-18-7857haiyaaiamib Oral, Refill(s) 0 Start Date: 08/03/24 Status: OrderedMulti Vitamins oral tablet (3 sources)Start: 32-71-7006kusm 1 tablet by mouth once dailyMulti Vitamins oral tablet 1 tab(s), Oral, Daily, Refill(s) 0 Start Date: 10/21/22 Status: Ordered Progesterone (3 sources)ProgesteroneStart: 93-58-9560ubefbxxqlqzh micronized Active PO November 26, 2024 12:00amStart: 17-09-4356htuq 1 capsule by mouth once daily at bedtime progesterone 100 mg oral capsule 100 mg = 1 cap(s), Oral, Once a day (at bedtime), # 90 cap(s), Refills(s) 0, Pharmacy: [facility], 154, cm, 08/03/24 9:55:00 EST, Height/Length Dosing, 52.5, kg, 08/03/24 9:55:00 EST, Weight Dosing Start Date: 08/03/24 Status: Orderedvitamin K2 (2 sources)Start: 51-88-5716msvsbqb K2 Active PO November 26, 2024 12:00am Completed/Discontinued Medications MedicationDrug Class(es)DatesSig (Normalized)Sig (Original)fluconazole 150 mg oral tablet (1 source)Azole AntifungalStart: 70-03-2400wsrr 4 tablets by mouth onceDiflucan 150 mg Tab 150 mg = 1 tab(s), Oral, Once, take one tab on day one and one tab on day four,# 1 tab(s), Refills(s) 0, Pharmacy: [facility] #[id number], 154, cm, 05/28/23 10:28:00 EDT, Height/Length Dosing, 50.5, kg, 05/28/23 10:28:00 EDT, Weight Dosing Start Date: 09/02/23 Status: Ordered Problems Active Problems Problem ClassificationProblemDateDocumented DateEpisodic/ChronicAbdominal hernia (4 sources)Hiatal hernia; Translations: [Diaphragmatic hernia without obstruction or gangrene]Onset: 050209-07-8435GsajhyenCjmatc of uterus (4 sources)History of malignant neoplasm of endometrium; Translations: [Personal history of malignant neoplasmof other parts of uterus]Onset: 11-06-2022 02-48-0451WtgekcgkEhumze; other and unspecified primary (1 source)Personal history of malignant neoplasm of other organs and systems; Translations: [PERS HX MALIG NEOPLASM OTH ORGN AND SYS]Onset: 85-04-9165Rdiioaxh Esophageal disorders (4 sources)Gastroesophageal reflux disease; Translations: [Gastro-esophageal reflux disease without esophagitis]Onset: hronic Genitourinary symptoms and ill-defined conditions (9 sources)History of recurrent urinary tract infection; Translations: [Personal history of urinary (tract) infections]Onset: 633065-47-8183Iczzcxil Menopausal disorders (4 sources)Menopausal and postmenopausal disorders; 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]31-13-5262LiqecubCgduiwmyuvvn (6 sources)Osteoporosis; Translations: [Age-related osteoporosis without current pathological fracture]Onset: 235597-44-2218QuuvmihWythk aftercare (1 source)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; Translations: [OTH SHELTER CURRENT DRUG THERAPY]Onset: 55-76-8486AqoaxizrMkaxp connective tissue disease (3 sources)Plantar fascial fvcwaonjxrsr28-11-9477IjszglsaOtqfc infections; including parasitic (3 sources)History of herpes qjqbum07-93-3875AhibfovpZpgda screening for suspected conditions (not mental disorders or infectious disease) (13 sources)Screening for malignant neoplasm of colon done; Translations: [Encounter for screening for malignant neoplasm of colon]Onset: 07-15-2022 EpisodicOther upper respiratory disease (2 sources)Seasonal riseaiu75-04-0972PknomdnIjsio upper respiratory infections (2 sources)Oelpcfzcp28-87-4489FeiudlmIfjecjlq codes; unclassified (1 source)Acquired absence of other specified parts of digestive tract; Translations: [ACQ ABSENCE OTH PART DIGESTV TRACT]Onset: 71-99-6134Lgbhrwnl Residual codes; unclassified (1 source)Acquired absence of both cervix and uterus; Translations: [ACQUIRED ABSENCE BOTH CERVIX AND UTERUS]Onset: 40-49-4295FibfigowZytgvgem codes; unclassified (1 source)Acquired absence of ovaries, bilateral; Translations: [ACQUIRED ABSENCE OVARIES BILATERAL]Onset: 41-35-7053QmppbuffWsfbjpyuvswg (3 sources)Body mass index 20-24 - zhmfub10-69-8858Jloffttrqzoe (8 sources)Patient encounter unkevr84-77-7616 Past or Other Problems Problem ClassificationProblemDateDocumented DateEpisodic/ChronicImmunizations and screening for infectious disease (1 source)Encounter for screening for human papillomavirus (HPV); Translations: [ENC SCREENING HUMAN PAPILLOMAVIRUS]Onset: 28-01-2781Ckgcqwkh Results Test NameValueInterpretationReference RangeFacilityAmbulatory Visit Summaryon 61-79-4310Oxrrvcxmak Visit SummaryAmbulatory Visit Summary ROHITHNANCY :1960 Visit Date:07/25/2025 Ambulatory Visit Instructions Your Diagnosis Welcome to Medicare preventive visit Osteoporosis Encounter for hepatitis C screening test for low risk patient Your Care Team Attending Physician - Adia Orosco Primary Care Physician - Adia Orosco This Is Your Medications List Non-Formulary Medication (DIM) biotin (biotin 1000 mcg oral tablet) calcium-vitamin D estradiol (estradiol 1 mg Tab) melatonin (melatonin 5 mg oral tablet) menaquinone (Vitamin K2) progesterone (Progesterone (micronized) 200 mg oral capsule) Procedures Performed Colonoscopy (11/05/2022), Cholecystectomy (06/2005), PATRICK BSO - Total abdominal hysterectomy and bilateral salpingo-oophorectomy (07/2004), Biopsy of breast, Exploratory laparotomy, ORIF - Open reduction and internal fixation of fracture. Discharge Vitals Heart Rate (Peripheral) 82 Blood Pressure 130/60 Height 156.5 cm Height 62 in Weight 47.8 kg Weight 105.381 lb BMI 19.52 What to do next Scheduled Follow-Up Appointments 2024 9:00 AM EST With: Adia Orosco Where: [address] [id number] 8:00 AM EST With: Where: [address] [address]- You Need to Complete the Following HCV Antibody RFX to Quant PCR, Blood, Routine collect, 07/25/25, Order for future visit, Lab Collect, Encounter for hepatitis C screening test for low risk patient, Not Required, Print Label By OrderLocation Medications What How Much When Why Instructions Unchanged biotin (biotin 1000 mcg oral tablet) 1 Tablets By Mouth Once a day (at bedtime) Unchanged calcium-vitamin D 2 Tablets By Mouth Once a day (in the evening) Unchanged estradiol (estradiol 1 mg Tab) 1 Tablets By Mouth Every day Wellness examination Vaginal atrophy Menopausal symptom Non-smoker BMI 22.0-22.9, adult Unchanged melatonin (melatonin 5 mg oral tablet) See instructions 1 tab(s) Oral Once a day (at bedtime) prn Unchanged menaquinone (Vitamin K2) By Mouth Every day Unchanged Non-Formulary Medication (DIM) Unchanged progesterone (Progesterone (micronized) 200 mg oral capsule) 100 Milligram By Mouth Everyday Allergies Actonel (Joint pain) Bee Stings (Edema) Demerol (Hallucinations) Evista (Unknown) Norflex (Syncope) codeine (Rash) erythromycin (Stomach upset) Problems Ongoing - Any problem that you are currently receiving treatment for. BMI 20.0-20.9, adult Body mass index [BMI] 19.9 or less, adult Breast cancer screening Breast cancer screening by mammogram GERD (gastroesophageal reflux disease) Hiatal hernia History of endometrial cancer History of recurrent UTIs History of shingles Menopausal symptom Osteoporosis Plantar fascial fibromatosis Post menopausal syndrome Screening for malignant neoplasm of colon Seasonal allergies Sinusitis Vaginal atrophy Welcome to Medicare preventive visit Well woman exam Wellness examination Patient Survey You may receive a survey via text or e-mail asking about your office visit. Please share your experience with us by completing your survey. We appreciate your feedback and thank you for choosing us for your care. Education Materials Preventive Care 65 Years and Older, Female Preventive care refers to lifestyle choices and visits with your health care provider that can promote health and wellness. Preventive care visits are also called wellness exams. What can I expect for my preventive care visit? Counseling Your health care provider may ask you questions about your: ??? Medical history, including: ? Past medical problems. ? Family medical history. ? and menstrual history. ? History of falls. ??? Current health, including: ? Memory and ability to understand (cognition). ? Emotional well-being. ? Home life and relationship well-being. ? Sexual activity and sexual health. ??? Lifestyle, including: ? Alcohol, nicotine or tobacco, and drug use. ? Access to firearms. ? Diet, exercise, and sleep habits. ? Work and work environment. ? Sunscreen use. ? Safety issues such as seatbelt and bike helmet use. Physical exam Your health care provider will check your: ??? Height and weight. These may be used to calculate your BMI (body mass index). BMI is a measurement that tells if you are at a healthy weight. ??? Waist circumference. This measures the distance around your waistline. This measurement also tells if you are at a healthy weight and may help predict your risk of certain diseases, such as type 2 diabetes and high blood pressure. ??? Heart rate and blood pressure. ??? Body temperature. ??? Skin (more content not included)...[facility] Medicine Office/Clinic Noteon [id number]Em[facility] Chief Complaint Welcome to Medicare HPI Staff Pt is presenting for wellness exam Health Maintenance: Colonoscopy: oct 2022 - normal Dexa: August 21, 2025 Mammo: August 21, 2025 Pap: 08/03/25 Last Labs: 08/03/24 Concerns: No Refills: No History of Present Illness Covid-19, MERS, Ebola Screen *Contact With Person With Highly Contagious Disease Like Ebola/MERS AND Have One or More of the Symptoms Below : No *Travel to a Country With Wide-Spread Ebola/MERS in the Past 21 Days AND Have One or More of the Symptoms Below : No *Verify Droplet, Contact Precautions for Ebola (Reference for CDC) : N/A *Verify Airborne, Droplet Precautions for MERS/COVID-19 : N/A Nazia Christine 07/25/2025 8:02 EST Medicare/Medicaid Summary Chief Complaint : Welcome to Medicare Nazia Christine - 07/25/2025 8:02 EST Patient Preferred Method of Communication No Preference Patient Counseled : Nutrition, Physical activity Height/Length Measured : 156.5 cm(Converted to: 5 ft 2 in, 61.61 in) Weight Measured : 47.8 kg(Converted to: 105 lb 6 Ounces, 105.381 lb) Body Mass Index Measured : 19.52 kg/m2 Height in Inches : 62 in Weight in Pounds : 105.381 lb Systolic Blood Pressure : 130 mmHg Diastolic Blood Pressure : 60 mmHg Blood Pressure Location : Left arm Blood Pressure Position : Sitting O2 Sat Resting/Exertion Alpha : Resting Peripheral Pulse Rate : 82 bpm SpO2 : 98 % Pain Present : No actual or suspected pain Nazia Christine - 07/25/2025 8:02 EST Hearing and Vision Screening FT FT Whisper Test Comments : no hearing deficits Vision Screen Comments : wears corrective lens. [facility] Nazia Christine Kayy - 07/25/2025 8:02 EST Advance Directive FT Advance Directive : No Organ Donation Consent : Yes Nazia Christine Kayy - 07/25/2025 8:02 EST Procedures / Surgeries FT - Procedure History (As Of: 07/25/2025 08:31:18 EST) Anesthesia Minutes: 0 ; Procedure Name: ORIF - Open reduction and internal fixation of fracture ; Procedure Minutes: 0 ; Comments: 10/15/2022 11:29 EST - Judit Ocampo LPN left radius ; Last Reviewed Dt/Tm: 07/25/2025 08:07:59 EST Procedure Dt/Tm: 07/2004 ; Anesthesia Minutes: 0 ; Procedure Name: PATRICK BSO - Total abdominal hysterectomy and bilateral salpingo-oophorectomy ; Procedure Minutes: 0 ; Last Reviewed Dt/Tm: 07/25/2025 08:07:59 EST Procedure Dt/Tm: 06/2005 ; Anesthesia Minutes: 0 ; Procedure Name: Cholecystectomy ; Procedure Minutes: 0 ; Last Reviewed Dt/Tm: 07/25/2025 08:07:59 EST Anesthesia Minutes: 0 ; Procedure Name: Biopsy of breast ; Procedure Minutes: 0 ; Last Reviewed Dt/Tm: 07/25/2025 08:07:59 EST Anesthesia Minutes: 0 ; Procedure Name: Exploratory laparotomy ; Procedure Minutes: 0 ; Last Reviewed Dt/Tm: 07/25/2025 08:07:59 EST Procedure Dt/Tm: 11/05/2022 ; Anesthesia Minutes: 0 ; Procedure Name: Colonoscopy ; Procedure Minutes: 0 ; Last Reviewed Dt/Tm: 07/25/2025 08:07:59 EST Family History Family History (As Of: 07/25/2025 08:31:18 EST) Father: Relation: Father ; Gender: Male ; Nomenclature: Osteoporosis ; Value: Positive Mother: Relation: Mother ; Gender: Female ; Nomenclature: Heart disease ; Value: Positive Nomenclature: Hypertension ; Value: Positive Nomenclature: Osteoporosis ; Value: Positive Medicare/Medicaid Social History FT Social History (As Of: 07/25/2025 08:31:18 EST) Alcohol: Current, Wine, 1-2 times per month Comments: 07/25/2025 8:11 - Nazia Christine: drinks 1 glass of wine maybe once a month (Last Updated: 07/25/2025 08:11:27 EST by Nazia Christine) Tobacco: Never (less than 100 in lifetime) Tobacco Use:. Never Smokeless Tobacco Use:. Cigarettes Comments: 07/25/2025 8:11 - Nazia Christine: denies (Last Updated: 07/25/2025 08:11:41 EST by Nazia Christine) Substance Abuse: Denies Substance Abuse Never Comments: 07/25/2025 8:12 - Nazia Christine: denies (Last Updated: 07/25/2025 08:12:03 EST by Nazia Christine) Health Risk Assessment FT HRA little interest or pleasure? : No HRA down, depressed, or hopeless? : No Hazards in your house? : No Fall Risk Past Year : No Worried About Falling : No Use a Cane or Walker? : No Someone Helps You in the Morning : No Fallen or felt dizzy standing up? : No Assistance with personal care? : No Trouble taking meds correctly? : No HRA Pain Present : Yes Primary Pain Location : Back Numeric Rating Pain Scale : 5 = Moderate pain Able to walk without help? : Yes Ability to shop w/out help : Yes Prepare your own meals? : Yes Housework without help? : Yes Handle money without help : Yes Track own medications without help? : Yes Overall mood for past four weeks : Pretty well General health rating : Very Good Someone avail. to help if needed? : Yes, as much as I wanted Phys. & emotional health limit social act? : Not at all Nazia Christine - 07/25/2025 8:02 EST Misc Health Risks Grid Sexual problems : Never Troub (more content not included)...[facility]stownComment on above:Result Comment: Electronically Signed By: Adia Orosco\.br\Date and Time Signed: 07/26/25 10:39 EST\.br\Electronically Co-Signed By: Nazia Christine\.br\Date and Time Co-Signed: 07/25/25 13:38 ESTAmbulatory Visit Summaryon [id number] Visit SummaryAmbulatory Visit Summary AICHA NEWBERRYDAVID Alvarez :1960 Visit Date:07/25/2025 Ambulatory Visit Instructions Your Diagnosis Welcome to Medicare preventive visit Osteoporosis Body mass index [BMI] 19.9 or less, adult Your Care Team Attending Physician - Adia Orosco Primary Care Physician - Adia Orosco This Is Your Medications List Non-Formulary Medication (DIM) biotin (biotin 1000 mcg oral tablet) calcium-vitamin D estradiol (estradiol 1 mg Tab) melatonin (melatonin 5 mg oral tablet) menaquinone (Vitamin K2) progesterone (Progesterone (micronized) 200 mg oral capsule) Procedures Performed Colonoscopy (11/05/2022), Cholecystectomy (06/2005), PATRICK BSO - Total abdominal hysterectomy and bilateral salpingo-oophorectomy (07/2004), Biopsy of breast, Exploratory laparotomy, ORIF - Open reduction and internal fixation of fracture. Discharge Vitals Heart Rate (Peripheral) 82 Blood Pressure 130/60 Height 156.5 cm Height 62 in Weight 47.8 kg Weight 105.381 lb BMI 19.52 What to do next Scheduled Follow-Up Appointments 2024 9:00 AM EST With: Adia Orosco Where: [address] [id number]- [id number] 8:00 AM EST With: Where: [facility] [address] [place] [address]- Medications What How Much When Why Instructions Unchanged biotin (biotin 1000 mcg oral tablet) 1 Tablets By Mouth Once a day (at bedtime) Unchanged calcium-vitamin D 2 Tablets By Mouth Once a day (in the evening) Unchanged estradiol (estradiol 1 mg Tab) 1 Tablets By Mouth Every day Wellness examination Vaginal atrophy Menopausal symptom Non-smoker BMI 22.0-22.9, adult Unchanged melatonin (melatonin 5 mg oral tablet) See instructions 1 tab(s) Oral Once a day (at bedtime) prn Unchanged menaquinone (Vitamin K2) By Mouth Every day Unchanged Non-Formulary Medication (DIM) Unchanged progesterone (Progesterone (micronized) 200 mg oral capsule) 100 Milligram By Mouth Everyday Allergies Actonel (Joint pain) Bee Stings (Edema) Demerol (Hallucinations) Evista (Unknown) Norflex (Syncope) codeine (Rash) erythromycin (Stomach upset) Problems Ongoing - Any problem that you are currently receiving treatment for. BMI 20.0-20.9, adult Body mass index [BMI] 19.9 or less, adult Breast cancer screening Breast cancer screening by mammogram GERD (gastroesophageal reflux disease) Hiatal hernia History of endometrial cancer History of recurrent UTIs History of shingles Menopausal symptom Osteoporosis Plantar fascial fibromatosis Post menopausal syndrome Screening for malignant neoplasm of colon Seasonal allergies Sinusitis Vaginal atrophy Welcome to Medicare preventive visit Well woman exam Wellness examination Patient Survey You may receive a survey via text or e-mail asking about your office visit. Please share your experience with us by completing your survey. We appreciate your feedback and thank you for choosing us for your care. Patient Portal You may access all of your results and other medical record information on our secure patient portal. If you are not signed up for this yet, please contact [employer] at [phone] to get signed up today. Language Information Language assistance services are available as needed. [facility] Medicine Office/Clinic Noteon [id number] Medicine Office/Clinic NoteFabenjamin [facility] Medicine Office/Clinic Note Chief Complaint Welcome to Medicare HPI Staff Pt is presenting for wellness exam Health Maintenance: Colonoscopy: oct 2022 - normal Dexa: August 21, 2025 Mammo: August 21, 2025 Pap: 08/03/25 Last Labs: 08/03/24 Concerns: No Refills: No History of Present Illness pt presents today for welcome to medicare visit. Review of Systems PHQ Score Initial Depression Screen Score: 0 SCORE General: alert, no acute distress ENMT: oral mucosa moist, no pharyngeal erythema or exudate Cardiovascular: regular rate and rhythm, normal peripheral perfusion Respiratory: Lungs CTA, respirations non labored Extremities: no deformity, no trauma Neurological: oriented x 4, LOC appropriate for age, CN II-XII intact, motor strength equal & normal bilaterally, speech normal Physical Exam Vitals & Measurements HR: 82(Peripheral) BP: 130/60 SpO2: 98% HT: 156.5 cm HT: 62 in WT: 47.8 kg WT: 105.381 lb BMI: 19.52 Assessment/Plan 1. Welcome to Medicare preventive visit (Z00.00: Encounter for general adult medical examination without abnormal findings) pt presents today for welcome to medicare visit. pt is doing well. denies needs. has order for dexaand mammogram. will be due for labs after 08/03. she will be returning then for a well woman visit.all questions answered. RTC for well woman visit Ordered: progesterone, 100 mg = 1 cap(s), Oral, Once a day (at bedtime), # 90 cap(s), Refills(s) 3, Pharmacy: [facility], 154, cm, 08/03/24 9:55:00 EST, Height/Length Dosing, 52.5, kg, 08/03/24 9:55:00 EST, Weight Dosing 2. Osteoporosis (M81.0: Age-related osteoporosis without current pathological fracture) dexa scan ordered. continue calcium and vitamin D 3. Body mass index [BMI] 19.9 or less, adult (Z68.1: Body mass index [BMI] 19.9 or less, adult) BMI education given Orders: fluconazole, 150 mg = 1 tab(s), Oral, Once, take one tab on day one and one tab on day four, # 1 tab(s), Refills(s) 0, Pharmacy: [id number], 154, cm, 05/28/23 10:28:00 EDT, Height/Length Dosing, 50.5, kg, 05/28/23 10:28:00 EDT, Weight Dosing Follow-up No qualifying data available Problem List/Past Medical History Ongoing BMI 20.0-20.9, adult Body mass index [BMI] 19.9 or less, adult Breast cancer screening Breast cancer screening by mammogram GERD (gastroesophageal reflux disease) Hiatal hernia History of endometrial cancer History of recurrent UTIs History of shingles Menopausal symptom Osteoporosis Plantar fascial fibromatosis Post menopausal syndrome Screening for malignant neoplasm of colon Seasonal allergies Sinusitis Vaginal atrophy Welcome to Medicare preventive visit Well woman exam Wellness examination Historical No qualifying data Procedure/Surgical History Colonoscopy (11/05/2022), Cholecystectomy (06/2005), PATRICK BSO - Total abdominal hysterectomy and bilateral salpingo-oophorectomy (07/2004), Biopsy of breast, Exploratory laparotomy, ORIF - Open reduction and internal fixation of fracture. Medications biotin 1000 mcg oral tablet, 1 tab(s), Oral, Once a day (at bedtime) calcium-vitamin D, 2 tab(s), Oral, qPM DIM estradiol 1 mg Tab, 1 mg= 1 tab(s), Oral, Daily, 3 refills melatonin 5 mg oral tablet, See Instructions Progesterone (micronized) 200 mg oral capsule, 100 mg, Oral, Daily, 1 refills Vitamin K2, Oral, Daily Allergies Actonel (Joint pain) Bee Stings (Edema) Demerol (Hallucinations) Evista (Unknown) Norflex (Syncope) codeine (Rash) erythromycin (Stomach upset) Social History Alcohol Current, Wine, 1-2 times per month, 07/25/2025 Substance Abuse - Denies Substance Abuse, 10/21/2022 Never, 07/25/2025 Tobacco Never (less than 100 in lifetime) Tobacco Use:. Never Smokeless Tobacco Use:. Cigarettes, 07/25/2025 Family History Heart disease: Mother. Hypertension: Mother. Osteoporosis: Mother and Father. Immunizations Vaccine Date Status Comments tetanus-diphtheria toxoids 11/09/2023 Given influenza virus vaccine, inactivated 10/02/2022 Recorded influenza, unspecified formulation 06/14/2022 Given influenza virus vaccine, inactivated 06/2022 Recorded SARS-CoV-2 (COVID-19) mRNA-1273 vaccine 08/23/2021 Recorded 2022-10-21: TPV60 SARS-CoV-2 (COVID-19) mRNA-1273 vaccine 10/10/2020 Recorded SARS-CoV-2 (COVID-19) mRNA-1273 vaccine 09[facility]12/[facility]:Result Comment: Electronically Signed By: Adia Orosco\.br\Date and Time Signed: 07/25/25 12:31 ESTUrine Cultureon [id number] identified Cx Nom (U)>100,000 colonies/ml mixed bacterial skin contaminants 2 Days PERFORMED BY: [place] [address] PATHOLOGIST GRAIN ELEVATOR AGENT MICHAEL GAVIN M.D.NormalAdventhealth Fish Memorial Physician GroupComment on above: Performed By: #### CUU #### [place] [address] USAAmbulatory Visit Summaryon [id number] Visit SummaryAmbulatory Visit Summary ROHITH, NANCY Alvarez :1960 Visit Date:08/03/2024 Ambulatory Visit Instructions [...] take one tab on day one and onetab on day four Unchanged melatonin (melatonin 5 [...] you for choosing us for your care. [facility]/ [facility] Diffon 08-03-2024 Basophils/100 WBC (Bld)1.0 %Normal0.0-2.0[facility] CampusComment on above:Performed By: #### [id number] #### [facility] [address] [place], [place] [address]Uqkjejhyj/Leukocytes Auto (Bld) [Pure # fraction]0.1 E9/LNormal 0.0-0.2[facility] Agnes HospitalComment on above:Performed By: #### [id number] #### [facility] [address] [place], [place] [address]Yuflikeotea (Bld) [#/Vol]0.1 E9/LNormal0.0-0.5[facility] Agnes HospitalComment on above:Performed By: #### [id number] #### [facility] [address] [place], [place] [address]Cpbpvscdfdh/100 WBC (Bld)1.0 %Normal0.0-8.0[facility] CampusComment on above:Performed By: #### [id number] #### [facility] [address] [place] [address] 560[address]Llhjshimvmu distribution width (RBC) [Ratio]12.7 %Normal 10.9-14.2FCleveland Clinic Lutheran HospitalComment on above:Performed By: #### [id number] #### [facility] [address] [place] [address] 07863Smwftqnxvj (Bld) [Volume fraction]42.6 %Kmxbmh51.0-46.0[facility] CampusComment on above:Performed By: #### [id number] #### [facility] [address] [place] [address] 335[address]Fdcpxpxakt (Bld) [Mass/Vol]14.6 g/qJJyeqdf27.0-16.0[facility] CampusComment on above:Performed By: #### [id number] #### [facility] [address] [place] [address] 296[address]Tppvdehmmkb (Bld) [#/Vol]1.4 E9/LNormal1.0-4.0[facility] CampusComment on above:Performed By: #### [id number] #### [facility] [address] [place] [address] 065[address]Clcnwyergan/100 WBC (Bld)22.3 %Zfpuhc00.0-50.0[facility] CampusComment on above:Performed By: #### [id number] #### [facility] [address] [place] [address]50[address]GYG (RBC) [Entitic mass]32.4 miLorkks74.0-34.0[facility] CampusComment on above:Performed By: #### [id number] #### [facility] [address] [place] [address] 28591ZRIO (RBC) [Mass/Vol]34.3 g/nGGxmdby17.4-36.0[facility] CampusComment on above:Performed By: #### [id number] #### [facility] [address] [place], [place] [address]LLF (RBC) [Entitic vol]94.4 pUWebbfi40.0-100.0[facility] CampusComment on above:Performed By: #### [id number] #### [facility] [address] [place] [address] 15644Wzxhnhlrm (Bld) [#/Vol]0.6 E9/LNormal0.2-1.0[facility] CampusComment on above:Performed By: #### [id number] #### [facility] [address] [place] [address] 87833Gtzfrhjzkjn (Bld) [#/Vol]4.0 E9/LNormal2.0-7.5FCleveland Clinic Lutheran HospitalComment on above:Performed By: #### [id number] #### [facility] [address] [place] [address] 12618Trvvxsqltrf/100 WBC (Bld)65.3 %Gpjcbq42.0-75.0[facility] CampusComment on above:Performed By: #### [id number] #### [facility] [address] [place] [address] 403[address]Qpdxwtmw887.0 E9/LLmsghq250.0-500.0[facility] Comment on above:Performed By: #### [id number] #### [facility] [address] [place] [address] 20977Wfjtxoww mean volume (Bld) [Entitic vol]10.2 fLNormal6.4-10.8 [facility] CampusComment on above:Performed By: #### [id number] #### [facility] [address] [place] [address] 97[address]GFL (Bld) [#/Vol]4.5 E12/LNormal4.3-5.9[facility] CampusComment on above:Performed By: #### [id number] #### [facility] [address] [place] [address] 559[address]MIA corrected for nucl RBC Auto (Bld) [#/Vol]6.1 E9/LNormal 4.0-11.0[facility]er [facility] Agnes HospitalComment on above:Performed By: #### [id number] #### [facility] [address] [place], [place] [address]MZJWBAEDVQihmkhe By: SYSTEM SYSTEM on 30-40-1642Bmvgooy [Mass/Vol]4.6 g/dLNormal3.3 - 5.0 gm/dLRemisol ChemAlbumin/Globulin [Mass ratio] 1.9 {ratio}Normal1.1 - 2.2Remisol ChemALP [Catalytic activity/Vol]50 [iU]/d Ajxswg44 - 98 Int._Unit/LRemisol ChemALT No additional P-5'-P [Catalytic activity/Vol]27 [iU]/dNormal6 - 46 Int._Unit/LRemisol ChemAnion gap [Moles/Vol]9 mmol/LNormal6 - 16 mEq/LRemisol ChemAST [Catalytic activity/Vol]25 [iU]/dNormal 5 - 43 Int._Unit/LRemisol ChemBilirubin [Mass/Vol]0.9 mg/dLNormal0.0 - 1.1 mg/dL Remisol ChemCalcium [Mass/Vol]9.5 mg/dLNormal8.9 - 11.1 mg/dLRemisol Chem Chloride [Moles/Vol]102 mmol/OIkbqpm955 - 111 mmol/LRemisol ChemCholesterol [Mass/Vol]253 mg/gQVirm092 - 200 mg/dLRemisol ChemCholesterol in HDL [Mass/Vol] 99 mg/dLInvalid Interpretation CodeRemisol ChemComment on above:Result Comment: '>= 60 LOW RISK' '<= 40 HIGH RISK'Cholesterol in LDL [Mass/Vol]137 mg/dLHigh<=129mg/dLRemisol ChemCholesterol in VLDL [Mass/Vol]12 mg/dLNormal7 - 40 mg/dLRemisol ChemCO2 [Moles/Vol]29 mmol/YZdlsja51 - 31 mmol/LRemisol ChemCreatinine [Mass/Vol]0.7 mg/dLNormal0.5 - 1.3 mg/dLRemisol YjkmmYZW54 mL/min/1.73 p9Uozupp>=59mL/min/1.73 v1Dvtjspf ChemGlobulin (S) [Mass/Vol]2.4 g/dLNormal1.4 - 4.0 gm/dLRemisol Chem Glucose [Mass/Vol]83 mg/uUCxccsn56 - 199 mg/dLRemisol ChemPotassium [Moles/Vol] 4.3 mmol/LNormal3.5 - 5.3 mmol/LRemisol ChemProtein [Mass/Vol]7.0 g/dLNormal6.0 - 7.8 gm/dLRemisol ChemSodium [Moles/Vol]136 mmol/MTabiyz302 - 145 mmol/LRemisol ChemTriglyceride [Mass/Vol]60 mg/dLNormal<=149mg/dLRemisol ChemTSH Qn2.22 m[IU]/LNormal0.34 - 5.60 mcIU/mLRemisol ChemUrea nitrogen [Mass/Vol]22 mg/dLHigh 5 - 21 mg/dLRemisol ChemUrea nitrogen/Creatinine [Mass ratio]31 mg/gnAwfi65 - 20 Remisol ChemCMPon 00-97-5425Jelfwpd [Mass/Vol]4.6 g/dLNormal3.3-5.0[facility] CampusComment on above:Performed By: #### [id number] #### [facility] [address] [place], [place] [address]Tyrceer/Globulin (S) [Mass conc ratio]1.8Jqnbsr6.1-2.2[facility] Agnes HospitalComment on above:Performed By: #### [id number] #### [facility] [address] [place], [place] [address]VJN [Catalytic activity/Vol]50 Int._Unit/NAxxjql23-81VrhuigWayne Healthcare Main CampusComment on above:Performed By: #### [id number] #### [facility] [address], [place] [address]PVK No additional P-5'-P [Catalytic activity/Vol]27 Int._Unit/L Normal6-46[facility] CampusComment on above:Performed By: #### [id number] #### [facility] [address] [place], [place] [address]Mjrhd gap [Moles/Vol]9 mmol/LNormal6-16[facility] CampusComment on above:Performed By: #### [id number] #### [facility] [address] [place], [place] [address]RWC [Catalytic activity/Vol]25 Int._Unit/LNormal5-43[facility] CampusComment on above:Performed By: #### [id number] #### [facility] [address] [place], [place] [address]Lamrligie [Mass/Vol]0.9 mg/dLNormal0.0-1.1FCleveland Clinic Lutheran HospitalComment on above:Performed By: #### [id number] #### [facility] [address] [place], [place] [address]Vdndbkr [Mass/Vol]9.5 mg/dLNormal8.9-11.1FCleveland Clinic Lutheran HospitalComment on above:Performed By: #### [id number] #### [facility] [address] [place], [place] [address]Vvgpagdb [Moles/Vol]102 mmol/HLqcmel734-278CgczlxWayne Healthcare Main CampusComment on above:Performed By: #### [id number] #### [facility] [address], [place] [address]PE5 [Moles/Vol]29 mmol/WDawzaf29-14ZhowaaWayne Healthcare Main Campus Comment on above:Performed By: #### [id number] #### [facility] [address] [place], [place] [address]Wryocbxpdt [Mass/Vol]0.7 mg/dLNormal0.5-1.3FCleveland Clinic Lutheran HospitalComment on above:Performed By: #### [id number] #### [facility] [address] [place], [place] [address]Ygybutfn (S) [Mass/Vol]2.4 g/dLNormal1.4-4.0[facility] CampusComment on above:Performed By: #### [id number] #### [facility] [address] [place], [place] [address]Ubfpmsl [Mass/Vol]83 mg/mTTskcst12-230ShhwqiWayne Healthcare Main CampusComment on above:Performed By: #### [id number] #### [facility] [address] [place], [place] [address]Xgagnitiz [Moles/Vol]4.3 mmol/LNormal3.5-5.3FCleveland Clinic Lutheran HospitalComment on above:Performed By: #### [id number] #### [facility] [address], [place] [address]Qykuirc [Mass/Vol]7.0 g/dLNormal6.0-7.8[facility] CampusComment on above:Performed By: #### [id number] #### [facility] [address] [place], [place] [address]Cnmrnw [Moles/Vol]136 mmol/APpuxha758-750FsldonWayne Healthcare Main CampusComment on above:Performed By: #### [id number] #### [facility] [address] [place], [place] [address]Opzv nitrogen [Mass/Vol]22 mg/dLHigh5-21[facility] CampusComment on above:Performed By: #### [id number] #### [facility] [address], [place] [address]Tbin nitrogen/Creatinine [Mass ratio]31 No LfykpDdrg94-89ZetnaqWayne Healthcare Main CampusComment on above:Performed By: #### [id number] #### [facility] [address] [place], [place] [address]Jxlaky Medicine Office/Clinic Noteon 50-03-5473Wiyqmd Medicine Office/Clinic NoteFabenjamin [facility] Medicine Office/Clinic Note HPI Staff Nancy is [...] Daily, # 90 tab(s), Refills(s) 0, [facility], [facility], cm, 08/03/24 9:55:00 EST, Height/Length Dosing, 52.5, kg, 08/03/24 9:55:00 EST,Weight Dosing progesterone, 100 mg = 1 cap(s), Oral, Once a day (at bedtime), # 90 cap(s), Refills(s) 0, Pharmacy: [facility], 154, cm, 08/03/24 9:55:00 EST, Height/Length Dosing, 52.5, kg, 08/03/24 9:55:00 EST, Weight Dosing Body Mass Index (BMI) documented 3008F Body Mass Index (BMI) documented 3008F Current tobacco non-user 1036F Depression Screening Negative 3352F Est Preventative 65+ years [address] Falls plan of care documented 0518F Influenza immunization status assessed 1030F Lab Specimen Collect 34525 Medication list documented in medical record 1159F [...] Daily, # 90 tab(s), Refills(s) 0, [facility]acy: [facility], 154, cm, 08/03/24 9:55:00 EST, Height/Length Dosing, 52.5, kg, 08/03/24 9:55:00 EST,Weight Dosing progesterone, 100 mg = 1 cap(s), Oral, Once a day (at bedtime), # 90 cap(s), Refills(s) 0, Pharmacy: [facility], 154, cm, 08/03/24 9:55:00 EST, Height/Length Dosing, 52.5, kg, 08/03/24 9:55:00 EST, Weight Dosing Body Mass Index (BMI) documented 3008F Body Mass Index (BMI) documented 3008F Current tobacco non-user 1036F Depression Screening Negative 3352F Est Preventative 65+ years [address] Falls plan of care documented 0518F Influenza immunization status assessed 1030F Medication list documented in medical record 1159F Most recent diastolic blood pressure 80-89 mm Hg 3079F Systolic BP <130 mm Hg (Most Recent) 3074F 3. Menopausal symptom (N95.1: Menopausal and female climacteric states) see above Ordered: estradiol, 1 mg = 1 tab(s), Oral, Daily, # 90 tab(s), Refills(s) 0, [facility]acy: [facility], 154, cm, 08/03/24 9:55:00 EST, Height/Length Dosing, 52.5, kg, 08/03/24 9:55:00 EST,Weight Dosing progesterone, 100 mg = 1 cap(s), Oral, Once a day (at bedtime), # 90 cap(s), Refills(s) 0, Pharmacy: [facility], 154, cm, 08/03/24 9:55:00 EST, Height/Length Dosing, 52.5, kg, 08/03/24 9:55:00 EST, Weight Dosing Body Mass Index (BMI) documented 3008F Body Mass Index (BMI) documented 3008F Current tobacco non-user 1036F Depression Screening Negative 3352F Est Preventative 65+ years [address] Falls plan of care documented 0518F Influenza immunization status assessed 1030F Medication list documented in medical record 1159F Most recent diastolic blood pressure 80-89 mm Hg 3079F Systolic BP <130 mm Hg (Most Recent) 3074F 4. Non-smoker (Z78.9: Other specified health status) continue not smoking Ordered: estradiol, 1 mg = 1 tab(s), Oral, Daily, # 90 tab(s), Refills(s) 0, Pharmacy: [facility], 154, cm, 08/03/24 9:55:00 EST, Height/Length Dosing, 52.5, kg, 08/03/24 9:55:00 EST,Weight Dosing progesterone, 100 mg = 1 cap(s), Oral, Once a day (at bedtime), # 90 cap(s), Refills(s) 0, Pharmacy: [facility], 154, cm, 08/03/24 9:55:00 EST, Height/Length Dosing, 52.5, kg, 08/03/24 9:55:00 EST, Weight Dosing Body Mass Index (BMI) documented 3008F Current tobacco non-user 1036F Depression Screening Negative 3352F Est Preventative 65+ years [address] Falls plan of care documented 0518F Influenza immunization stat (more content not included)...[facility] Hospital - YoungstownComment on above:Result Comment: Electronically Signed By: Adia Orosco\jannie\Date and Time Signed: 08/03/24 11:12 ESTHEMATOLOGYOrdered By: SYSTEM SYSTEM on 98-40-2068Emdtqcfga/100 WBC (Bld)1.0 %Normal0.0 - 2.0 %Remisol HemeBasophils/Leukocytes Auto (Bld) [Pure # fraction]0.1 E9/LNormal0.0 - 0.2 E9/LRemisol HemeEosinophils (Bld) [#/Vol]0.1 E9/LNormal0.0 - 0.5 E9/LRemisol HemeEosinophils/100 WBC (Bld)1.0 %Normal0.0 - 8.0 %Remisol HemeErythrocyte distribution width (RBC) [Ratio]12.7 %Okarcn10.9 - 14.2 %Remisol HemeHematocrit (Bld) [Volume fraction]42.6 %Dilple34.0 - 46.0 %Remisol HemeHemoglobin (Bld) [Mass/Vol]14.6 g/yLAsbhbz94.0 - 16.0 gm/dLRemisol HemeLymphocytes (Bld) [#/Vol] 1.4 E9/LNormal1.0 - 4.0 E9/LRemisol HemeLymphocytes/100 WBC (Bld)22.3 %Normal 14.0 - 50.0 %Remisol HemeMCH (RBC) [Entitic mass]32.4 gjUjdhej60.0 - 34.0 pg Remisol HemeMCHC (RBC) [Mass/Vol]34.3 g/pWNlhjsu71.4 - 36.0 gm/dLRemisol HemeMCV (RBC) [Entitic vol]94.4 oXKarqsv85.0 - 100.0 fLRemisol HemeMonocytes (Bld) [#/Vol]0.6 E9/LNormal0.2 - 1.0 E9/LRemisol HemeMonocytes/100 WBC (Bld)10.4 % Normal4.0 - 14.0 %Remisol HemeNeutrophils (Bld) [#/Vol]4.0 E9/LNormal2.0 - 7.5 E9/LRemisol HemeNeutrophils/100 WBC (Bld)65.3 %Fakpnq25.0 - 75.0 %Remisol Heme Qovzozbf267.0 E9/VAtxsrz023.0 - 500.0 E9/LRemisol HemePlatelet mean volume (Bld) [Entitic vol]10.2 fLNormal6.4 - 10.8 fLRemisol HemeRBC (Bld) [#/Vol]4.5 E12/L Normal4.3 - 5.9 E12/LRemisol HemeWBC corrected for nucl RBC Auto (Bld) [#/Vol] 6.1 E9/LNormal4.0 - 11.0 E9/LRemisol HemeLipid Panelon 25-86-0153Qckhilnmiwc [Mass/Vol]253 mg/zOZcfi912-108XfmrjzWayne Healthcare Main CampusComment on above: Performed By: #### [id number] #### [facility] [address] [place], [place] [address]Fdtskoditjk in HDL [Mass/Vol]99 mg/dLInvalid Interpretation CodeWayne Healthcare Main CampusComment on above:Result Comment: '>= 60 LOW RISK' '<= 40 HIGH RISK'Performed By: #### [id number] #### [facility] [address] [place], [place] [address]Yfkrprxcdyj in LDL [Mass/Vol]137 mg/dLHigh<=129[facility] CampusComment on above:Performed By: #### [id number] #### [facility] [address] [place], [place] [address]Sbytvydksgb in VLDL [Mass/Vol]12 mg/dLNormal7-40[facility] CampusComment on above:Performed By: #### [id number] #### [facility] [address] [place], [place] [address]Drwygbowdzav [Mass/Vol]60 mg/dLNormal<=149[facility] CampusComment on above:Performed By: #### [id number] #### [facility] [address] [place], [place] [address]HNErm 08-15-2339WLO Qn2.22 m[IU]/LNormal0.34-5.60[facility] CampusComment on above:Performed By: #### [id number] #### [facility] [address] [place], [place] [address]wAIVrx 60-24-0346qZBE37 mL/min/1.73 y2Sgcylv>=59[facility] CampusComment on above:Performed By: #### [id number] #### [facility] [address] [place], [place] [address]Dukkrrr aminotransferase [Enzymatic activity/volume] in Serum or PlasmaOrdered By: [employer] on 81-77-2211HRH [Catalytic activity/Vol]22 U/L7-52[facility] HospitalAlbumin [Mass/volume] in Serum or Plasma by Bromocresol green (BCG) dye binding methoOrdered By: [employer] on 45-76-3505Ggbrqul BCG dye [Mass/Vol]4.7 g/dL3.5-5.7 [facility] HospitalAlkaline phosphatase [Enzymatic activity/volume] in Serum or PlasmaOrdered By: [employer] on 05-30-2023 ALP [Catalytic activity/Vol]39 U/U25-842EocqtilvpOhiohealth Riverside Methodist Hospital Aspartate aminotransferase [Enzymatic activity/volume] in Serum or PlasmaOrdered By: [employer] on 33-20-6826BAN [Catalytic activity/Vol]25 U/L13-39 [facility] HospitalBilirubin.total [Mass/volume] in Serum or PlasmaOrdered By: [employer] on 43-83-7513Fmdwtqqpg [Mass/Vol]1.5 mg/dL 0.3-1.0[facility] HospitalComment on above:Samples from patients who have taken Naproxen have shown spurious elevation in Total Bilirubin levels. A metabolite of Naproxen, O-desmethylnaproxen, has been shown to interfere with the Viridiana-Gabe method for measuring Total Bilirubin.Calcium [Mass/volume] in Serum or PlasmaOrdered By: [employer] on 44-97-8199Jtottty [Mass/Vol] 10.0 mg/dL8.6-10.3FHenry County HospitalCarbon dioxide, total [Moles/volume] in Serum or PlasmaOrdered By: [employer] on 17-80-8677OU5 [Moles/Vol]29.2 mmol/L21.0-31.0[facility] HospitalChloride [Moles/volume] in Serum or PlasmaOrdered By: [employer] on 05-30-2023 Chloride [Moles/Vol]103 mmol/L81-384OgrakqdimOhiohealth Riverside Methodist HospitalCholesterol [Mass/volume] in Serum or PlasmaOrdered By: [employer] on 05-30-2023 Cholesterol [Mass/Vol]253 mg/kT143-657VuemlcjefOhiohealth Riverside Methodist HospitalComment on above:Chol less than 200 mg/dl low riskChol 201-239 mg/dl borderline riskChol 240 mg/dl and greater high riskCholesterol in LDL Calc [Mass/Vol]Ordered By: [employer] on 70-87-9328Btfzevlnrcb in LDL [Mass/Vol]130 mg/dL0-100 [facility] HospitalComment on above:LDL ATP III CLASSIFICATIONLDL less than 100 mg/dL OptimalLDL 100-129 mg/dL Near or above xhneygaPQW103-624 mg/dL Borderline highLDL 160-189 mg/dL HighLDL greater than 189 mg/dL Very high Cholesterol in VLDL Calc [Mass/Vol]Ordered By: [facility] on 05-30-2023 Cholesterol in VLDL [Mass/Vol]13 mg/dLOhiohealth Riverside Methodist Hospital Creatinine [Mass/volume] in Serum or PlasmaOrdered By: [facility] on 89-66-0325Mxwcxmlhzl [Mass/Vol]0.83 mg/dL0.60-1.20[facility] HospitalErythrocyte distribution width Auto (RBC) [Ratio]Ordered By: [facility] on 87-59-9334Qhfyzkutnle distribution width (RBC) [Ratio]12.7 % 11.9-15.3FHenry County HospitalGlucose [Mass/volume] in Serum or PlasmaOrdered By: [facility] on 79-77-6651Fadryuj [Mass/Vol]89 mg/dL 70-100[facility] HospitalComment on above:ADA recommended reference rangeRandom Glucose Reference Range is dependent on time and content of last meal. Glucose of more than 200 mg/dL in a nonstressed, ambulatory subject supports the diagnosisof Diabetes Mellitus.Hematocrit Auto (Bld) [Volume fraction]Ordered By: [facility] on 06-03-0822Eqgxsggmqy (Bld) [Volume fraction]44.7 %34.0-46.4FHenry County HospitalHemoglobin [Mass/volume] in BloodOrdered By: [facility] on 27-60-6513Ajwcsgqewz (Bld) [Mass/Vol]15.1 g/dL11.8-15.4FHenry County HospitalLeukocytes [#/volume] corrected for nucleated erythrocytes in Blood by Automated coun Ordered By: [facility] on 57-66-7031TPF corrected for nucl RBC Auto (Bld) [#/Vol]4.7 10*3/uL3.8-11.6FHenry County HospitalMCH Auto (RBC) [Entitic mass]Ordered By: [facility] on 82-28-2386PAW (RBC) [Entitic mass]32.1 pg24.7-34.3FHenry County HospitalMCHC Auto (RBC) [Mass/Vol] Ordered By: [facility] on 47-63-5611WLKD (RBC) [Mass/Vol]33.8 g/dL 32.0-35.0[facility] HospitalMCV Auto (RBC) [Entitic vol]Ordered By: [facility] on 33-29-1040MRO (RBC) [Entitic vol]94.9 iV80-748 [facility] HospitalNo Panel InformationOrdered By: [facility]RE[facility] COUNT INCLUDES THE [facility] on 57-50-3238Ksydpntls GFR (CKD-EPI)> 60.0 mL/MinOhiohealth Riverside Methodist HospitalPharmacy Creatinine Clearance (ChemN/AFHenry County HospitalPlatelet mean volume Auto (Bld) [Entitic vol]Ordered By: [facility] COUNT INCLUDES THE [facility] on 08-96-4666Dyqnkyqs mean volume (Bld) [Entitic vol]9.6 fL6.3-10.7 [facility] HospitalPlatelets Auto (Bld) [#/Vol]Ordered By: [facility] on 07-26-9572Epwvzwpak (Bld) [#/Vol]214 10*3/dC240-898 [facility] HospitalPotassium [Moles/volume] in Serum or Plasma Ordered By: [facility] COUNT INCLUDES [facility] on 71-72-0748Ygbijmcgy [Moles/Vol]4.1 mmol/L 3.5-5.1FHenry County HospitalProtein [Mass/volume] in Serum or Plasma Ordered By: [facility] on 09-78-1735Hiwprhb [Mass/Vol]7.1 g/dL6.4-8.9 [facility] HospitalRBC Auto (Bld) [#/Vol]Ordered By: [facility] on 14-97-4991ZPI (Bld) [#/Vol]4.71 10*6/uL3.60-5.00Kn[facility] Community Hospitalerum or plasma anion gap determinationOrdered By: [facility] on 40-91-8338Vbhco gap [Moles/Vol]9.9 mmol/L6.0-15.0Kn[facility] Community Hospitalerum or plasma high density lipoprotein (HDL) cholesterol measurementOrdered By: [facility] on 10-42-1855Lmmumguzzmi in HDL [Mass/Vol]110 mg/bV46-32ShnzggmcdOhiohealth Riverside Methodist HospitalComment on above:HDL CHOL ATP-III CLASSIFICATION Cardiovascular RiskHDL > or equal to 60 mg/dL LOWHDL < 40 mg/dL HIGHSerum or plasma total cholesterol/high density lipoprotein (HDL) cholesterol mass ratOrdered By: [facility] on 05-30-2023 Cholesterol.total/Cholesterol in HDL [Mass ratio]2.3 {ratio}<5.0[facility] Community Hospitalodium [Moles/volume] in Serum or PlasmaOrdered By: [facility] on 27-45-3035Umahci [Moles/Vol]138 mmol/A125-553CtlztkrjsOhiohealth Riverside Methodist HospitalThyrotropin [Units/volume] in Serum or PlasmaOrdered By: [facility] on 55-91-8164EEP Qn2.12 m[IU]/L0.45-5.33[facility] HospitalTriglyceride [Mass/volume] in Serum or PlasmaOrdered By: [facility] on 82-66-4059Lkuvcunjixfj [Mass/Vol]65 mg/dL0-149[facility] HospitalComment on above:TRIG ATP III CLASSIFICATIONTRIG less than 150 mg/dL NormalTRIG 150-199 mg/dL Borderline highTRIG 200-500 mg/dL High TRIG greater than 500 mg/dL Very highStandard traceable to the Center for Disease Co nrtrol and Prevention (CDC) test method.Urea nitrogen [Mass/volume] in Serum or PlasmaOrdered By: [facility] on 15-54-4811Ptmh nitrogen [Mass/Vol]18 mg/dL7-25[facility] HospitalMG MAMM SCREEN 3D BHANU CADon 08-01-2022 MG MAMM SCREEN 3D BHANU CADPatient: NANCY NEWBERRY Exam Date: 08/01/2022 : 1960 Gender:F Ordering : DR WALTER MALONE . Admission #: [id number] Family : Order #: [id number] CLICK HERE TO VIEW EXAM RADIOLOGY REPORT [...] Treatments hysterectomy Family Cancers None LOCATION: [facility] BREAST COMPOSITION: Heterogeneously dense,which may obscure [...] LUMP SHOULD BE BIOPSIED. Dictated by: Cyrus Andrews MD on 08/01/2022 at 10:58 Approved by: Cyrus Andrews MD on 08/01/2022 at 11:03[facility] ToledoOG PANEL 2: 30 to 65on 07-23-2022..NormalThe Samaritan HospitalCommunson healthcare [facility] on above:Result Comment: Performed at: WBPerformed By: #### [id number] #### [facility] [address] [place] [address] Dr. Brenda Angel Gdln ACOG Qnvkalv73-08BeuctbMlrTwin City HospitalComment on above:Performed By: #### [id number] #### [facility] [address] [place] [address] Dr. Brenda ChavisDIAGNOSIS:CommentParkview Health Montpelier Hospital on above: Result Comment: NEGATIVE FOR INTRAEPITHELIAL LESION OR MALIGNANCY. Performed at: WBPerformed By: #### [id number] #### [facility] [address] [place] [address] Dr. Brenda Whitley AptimaNegativeNormalNegativeCleveland Clinic Children'S Hospital For RehabilitationCommunson healthcare manist[facility] hospital on above:Result Comment: This nucleic acid amplification test detects fourteen high-risk HPV types (16,18,31,33,35,39,45,51,52,56,58,59,66,68) without differentiation. Performed at: =GPerformed By: #### [id number] #### [facility] [address] [place] [address] Dr. Brenda Whitley Genotype ReflexComSouthview Medical Center on above:Result Comment: Criteria not met, HPV Genotype not performed. Performed at: WBPerformed By: #### [id number] #### [facility] [address] [place] [address] Dr. Brenda ChavisMethodology:CommentParkview Health Montpelier Hospital on above: Result Comment: This liquid based ThinPrep(R) pap test was screened with the use of an image guided system. Performed at: WBPerformed By: #### [id number] #### [facility] [address] [place] [address] Dr. Brenda ChavisNote:CommentParkview Health Montpelier Hospital on above:Result Comment: The Pap smear is a screening test designed to aid in the detection of premalignant and malignant conditions of the uterine cervix. It is not a diagnostic procedure and should not be used as the sole means of detecting cervical cancer. Both false-positive and false-negative reports do occur. . Performed at: WBPerformed By: #### [id number] #### [facility] [address] [place] [address] Dr. Brenda ChavisPerformed by:CommentParkview Health Montpelier Hospital on above: Result Comment: Shereen Diaz, Director Biostatistics Performed at: WBPerformed By: #### [id number] #### [facility] [address] [place] [address] Dr. Brenda ChavisSpecslim adequacy:[facility] on above:Result Comment: Satisfactory for evaluation. No endocervical component is identified. Performed at: WBPerformed By: #### [id number] #### [facility] [address] [place] [address] Dr. Brenda Sainz hemoglobin measurement (mass/volume)Ordered By: [facility] on 32-37-0332Cvbrahexjt (Bld) [Mass/Vol]14.5 g/dL11.8-15.4FHenry County HospitalBody fluid albumin measurement (mass/volume)Ordered By: [facility] on 22-34-0696Dkvxqmp (Body fld) [Mass/Vol]4.2 g/dL3.2-5.5 [facility] HospitalCholesterol [Mass/volume] in Serum or Plasma Ordered By: [facility] on 92-68-6750Ssdlkuboicr [Mass/Vol]270 mg/dL 140-200Ohio[facility] Methodist HospitalComment on above:Chol less than 200 mg/dl low risk Chol 201-239 mg/dl borderline risk Chol 240 mg/dl and greater high riskCholesterol in LDL Calc [Mass/Vol]Ordered By: [facility] on 67-18-7628Xmsabpcjyrr in LDL [Mass/Vol]145 mg/dL0-100 [facility] HospitalComment on above:LDL ATP III CLASSIFICATION LDL less than 100 mg/dL Optimal LDL 100-129 mg/dL Near or above optimal LDL 130-159 mg/dL Borderline high LDL 160-189 mg/dL High LDL greater than 189 mg/dL Very highCholesterol in VLDL Calc [Mass/Vol]Ordered By: [facility] on 28-11-9357Htbwerjbhva in VLDL [Mass/Vol]15 mg/dL [facility] HospitalCreatinine and Glomerular filtration rate.predicted panel (S/P/Bld)Ordered By: [facility] on 04-26-2022 Creatinine [Mass/Vol]0.77 mg/dL0.44-1.03[facility] Erythrocyte distribution width Auto (RBC) [Ratio]Ordered By: [facility] on 40-23-2198Qbqzrsqenvv distribution width (RBC) [Ratio]13.2 %11.9-15.3 [facility] HospitalEstimated glomerular filtration rate (GFR) non- AmericanOrdered By: [facility] on 92-46-4533IIB/1.73 sq M.predicted among non-blacks MDRD (S/P/Bld) [Vol rate/Area]> 60 mL/MinOhiohealth Riverside Methodist HospitalHematocrit Auto (Bld) [Volume fraction]Ordered By: [facility] on 71-63-5244Duztrrlhgj (Bld) [Volume fraction]44.0 % 34.0-46.4FMercy Health Anderson Hospital Auto (RBC) [Entitic mass]Ordered By: [facility] on 68-99-2336YIM (RBC) [Entitic mass]32.0 pg24.7-34.3 [facility] CenterMCHC Auto (RBC) [Mass/Vol]Ordered By: OUTREACH COUNT INCLUDES [facility] on 59-27-2525VSUB (RBC) [Mass/Vol]33.0 g/dL32.0-35.0[facility] HospitalMCV Auto (RBC) [Entitic vol]Ordered By: [facility] on 80-26-5139UZE (RBC) [Entitic vol]97.0 cW07-946OowniqzbcOhiohealth Riverside Methodist Hospital No Panel InformationOrdered By: OUTREACH COUNT INCLUDES [facility] on 42-87-1102Ohzbtgoys GFR ()> 60 mL/MinOhiohealth Riverside Methodist HospitalComment on above: GFR estimated reference range: According to KDOQI guidelines, <60 ml/min/1.73m2 is sufficient todiagnose a patient with chronic kidney disease.Pharmacy Creatinine Clearance (ChemN/[facility] Hospital DaytonTriglycerides Ygrkvd57 mg/cT14-392PixwfobzgOhiohealth Riverside Methodist HospitalComment on above:TRIG ATP III CLASSIFICATION TRIG less than 150 mg/dL Normal TRIG 150-199 mg/dL Borderline high TRIG 200-500 mg/dL High TRIG greater than 500 mg/dL Very high Standard traceable to the Center for Disease Conrtrol and Prevention (CDC) test method.Platelet mean volume Auto (Bld) [Entitic vol]Ordered By: [facility] on 40-94-8643Agczcnki mean volume (Bld) [Entitic vol]10.0 fL6.3-10.7 [facility] HospitalPlatelets Auto (Bld) [#/Vol]Ordered By: OUTREACH COUNT INCLUDES [facility] on 18-00-1501Xomraplez (Bld) [#/Vol]215 10*3/fO012-333 [facility] HospitalProtein [Mass/volume] in Serum or PlasmaOrdered By: OUTREACH COUNT INCLUDES THE [facility] on 20-52-7862Ndawnri [Mass/Vol]6.8 g/dL6.1-7.9[facility] HospitalRBC Auto (Bld) [#/Vol]Ordered By: OUTREACH COUNT INCLUDES [facility] on 76-04-3632KTY (Bld) [#/Vol]4.53 10*6/uL3.60-5.00[facility] Hospitalerum or plasma alanine aminotransferase measurement without P-5'-P (enzymatic activiOrdered By: [facility] on 74-03-3927MZX No additional P-5'-P [Catalytic activity/Vol]26 U/I04-33PznjqkibsKnox Community Hospitalerum or plasma alkaline phosphatase measurement (enzymatic activity/volume)Ordered By: [facility] on 21-15-1709MKE [Catalytic activity/Vol]42 U/L32-92 [facility] Hospitalerum or plasma aspartate aminotransferase measurement (enzymatic activity/volume)Ordered By: [facility] on 49-95-4318FIR [Catalytic activity/Vol]30 U/B26-35EhtfmpaziKnox Community Hospitalerum or plasma calcium measurement (mass/volume)Ordered By: [facility] on 71-54-2328Mrlifcc [Mass/Vol]9.8 mg/dL8.2-10.2FBellevue Hospitalerum or plasma chloride measurement (moles/volume)Ordered By: [facility] on 67-71-1355Doidaket [Moles/Vol]102 mmol/M29-995EuzyfekdgKnox Community Hospitalerum or plasma glucose measurement (mass/volume)Ordered By: [facility] on 92-69-1588Zrtxxzs [Mass/Vol]89 mg/xM11-047OfhjwlrmkOhiohealth Riverside Methodist HospitalComment on above:ADA recommended reference range Random Glucose Reference Range is dependent on time and content of last meal. Glucose of more than 200 mg/dL in a nonstressed, ambulatory subject supports the diagnosis of Diabetes Mellitus.Serum or plasma high density lipoprotein (HDL) cholesterol measurementOrdered By: [facility] on 14-63-8485Itjtmcjnkdb in HDL [Mass/Vol]109 mg/hS75-36CiizcgruiOhiohealth Riverside Methodist HospitalComment on above:HDL CHOL ATP-III CLASSIFICATION Cardiovascular Risk HDL > or equal to 60 mg/dL LOW HDL < 40 mg/dL HIGHSerum or plasma potassium measurement (moles/volume)Ordered By: [facility] on 70-36-7262Regbtbsaq [Moles/Vol]3.9 mmol/L3.5-5.1 [facility] Hospitalerum or plasma sodium measurement (moles/volume)Ordered By: [facility] on 17-27-7367Gunoes [Moles/Vol]136 mmol/D388-177UjnhfgkewKnox Community Hospitalerum or plasma total bilirubin measurement (mass/volume)Ordered By: OUTREACH COUNT INCLUDES [facility] on 14-18-5129Ilxofqulq [Mass/Vol]1.2 mg/dL0.3-1.2FBellevue Hospitalerum or plasma total carbon dioxide measurement (moles/volume)Ordered By: [facility] on 19-01-8328PR3 [Moles/Vol]25.5 mmol/L22.0-30.0[facility] Serum or plasma total cholesterol/high density lipoprotein (HDL) cholesterol mass ratOrdered By: [facility] on 04-26-2022 Cholesterol.total/Cholesterol in HDL [Mass ratio]2.5 {ratio}<5.0[facility] Hospitalerum or plasma urea nitrogen measurement (mass/volume) Ordered By: [facility] on 01-76-1858Nysz nitrogen [Mass/Vol]16 mg/dL9-23 [facility] HospitalWBC Auto (Bld) [#/Vol]Ordered By: [facility] on 17-02-0309CXF (Bld) [#/Vol]5.2 10*3/uL3.8-11.6FHenry County HospitalOtheron 96-38-6766UTPLCCEYL ELECTRONIC SIGNATURESAMUEL CASTELLANOS M.D., PATHOLOGIST (Electronic signature on file) Final Signed Out: 10/29/2004 08:22 [facility] HospitalCONVERTED FINAL DIAGNOSISOUTSIDE CONSULT [id number] A) UTERUS, BILATERAL OVARIES AND FALLOPIAN TUBES, [...] LYMPH NODE IS NOT IDENTIFIED. 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 A MUCIN STAIN IS POSITIVE. COMMENT: The findings may represent origin from endometrium or endocervix. A mucin stain is confirmatory of mucin production. B) ENDOMETRIUM, CURETTAGE - BENIGN ENDOMETRIAL POLYP. PROLIFERATIVE PHASE ENDOMETRIUM WITH GLANDULAR AND STROMAL BREAKDOWN. NEGATIVE FOR MALIGNANCY. COMMENT: Both cases [facility] review [facility]. The adenocarcinoma noted within the curettage [...] is retained within the Pathology Department at [facility] CONVERTED ORDERING PROVIDEROrdering Provider: LULA VIERASalem City Hospital Vital Signs Date TimeVital SignValuePerforming SapidvzkdVpxlqtfz79-54-0565 12:18-0400Body smpqva870.94 cmOhiohealth Riverside Methodist Hospital03-15-2025 12:18-0400Body mass index (BMI) [Ratio]20.9 kg/m4YfzfwajetOhiohealth Riverside Methodist Hospital03-15-2025 12:18-0400Body psyecguznbc97.5 [degF][facility]03-15-2025 12:18-0400Body zemxto76.34 kgOhiohealth Riverside Methodist Hospital03-15-2025 12:18-0400Diastolic blood npsifxog99 mm[Hg][facility] 11-26-2024 12:18-0400Heart rate80 /[facility] 11-26-2024 12:18-0400Respiratory rate16 /[facility] 11-26-2024 12:18-3536ShQ5% (BldA) [Mass fraction]100 %[facility]03-15-2025 12:18-0400Systolic blood eoxtyaam962 mm[Hg][facility]02-07-2023 13:02-0500Blood Pressure LocationMichael NILL General Surgery Qavmxeoe89-48-6372 13:02-0500Diastolic blood lymiqewm84 mm[Hg]Erendira FOSTER General Surgery Xnfyunjp98-23-8289 13:02-0500Heart rate 72 /minMichael NILL General Surgery Ypgeypce55-24-2609 13:02-0500 Respiratory rate16 /minMichael NILL General Surgery Ieejilqt98-07-1162 13:02-0500Systolic blood pyruplwt086 mm[Hg]Erendira FOSTER General Surgery [place] Encounters Encounter DateEncounter TypeCare ProviderFacilityStart: 23-18-0268tzbmiuunsnSkwd L SchwabFacility:[facility] BellevueStart: 04-07-0255rrmuozhipiMtbb L Marvin Facility:[facility] BellevueStart: 07-25-2025 End: 22-76-6935lpmugbgripDesa L SchwabFacility:[facility] BellevueStart: 11-26-2024 End: 58-17-6722Cpvshhxq [facility] Work Phone: [facility] [place] Work Phone: Start: 11-26-2024 End: 02-43-9506seccnueeumYojgtsProMedica Bay Park Hospital Work Phone: Start: 11-26-2024 End: 12-70-3166Dbgqywh encounter procedureAt[facility] Health [facility] [place] Work Phone: Start: 08-03-2024 End: 18-87-7480nbnrdhvyvsYhrg L SchwabFacility:[facility] BellevueStart: 08-03-2024 End: 57-12-0506olyzahobknImqh L SchwabFacility:FTMCStart: 08-03-2024 End: 38-51-6230Ymp Drop offJodi L Marvin [facility] Start: 08-25-2023 End: 70-05-7257Pne Drop offJodi L Marvin [facility] Start: 08-19-2023 End: 20-20-6059orxwttzbddKMTTGI J HEMEALEXANot AvailableStart: 05-30-2023 End: 57-68-9103uxfnzntyhnNB Merle Hernandez Work Phone: [facility] Work Phone: Start: 05-30-2023 End: 27-11-4777Mfsaabnx ReferredMD Merle Hernandez Work Phone: [facility] Work Phone: Start: 11-05-2022 End: 44-05-1191vdxsintxfsNCOEPYW NILLFacility:P8Qbkcj: 10-21-2022 End: 23-67-1952Fljgqxy encounter procedureMichael R NILL General Surgery Nill/[facility] [place] Start: 08-01-2022 End: 29-28-5373iifliibgnyVK GREGORY KARASIK .Facility:C2Cznvd: 07-15-2022 End: 71-83-2240wikedvwukwWT GREGORY KARASIK .Facility:P4Zjpjx: 04-26-2022 End: 41-89-9102Wojrsoid ReferredMD Merle Hernandez Work Phone: [facility] Start: 10-22-2004 End: 13-03-3497Knuirnc encounter procedureEric Trav Viera Work Phone: [facility] ClinicStart: 06-96-3405Agktohc OnlyEric Trav Viera Work Phone: [facility] Procedures DateProcedureProcedure DetailPerforming ClinicianStart: 06-14-2005 CholecystectomyMichael NILL Start: 45-02-9875PVDJHTFVO SURGICAL PATHOLOGYEric Trav Viera Work Phone: Start: 49-54-1120Moopf abdominal hysterectomy with bilateral salpingo-oophorectomyMichael NILL Biopsy of breastMichael NILL Exploratory laparotomyMichael NILL Open reduction of fracture with internal fixation Erendira NILL Comment on above:left radius Plan of Treatment DateCare ActivityDetailAuthorStart: 51-25-1086Kmmxchtg identified in Urine by CultureUrine Main Campus Medical Centertart: 03-25-7129GpasvCrystal [facility] Immunizations Immunization DateImmunizationNotesCare CseofttlAwrzpboh50-27-2021yzhugly and diphtheria toxoids, adsorbed, preservative free, for adult use (5 Lf of tetanus toxoid and 2 Lf of diphtheria toxoid)Adia Marvin 019-3709Yftuvl-NuesmCleveland Clinic [facility] Hospital 71-29-7582zueansakr virus vaccine, unspecified formulationMichael NILL General Surgery Bvafgiyk15-31-1548axcehcnsv, unspecified formulationJodi Marvin 200-5933Szbhih-RncfuCleveland Clinic Euclid Hospital 51-16-9858XUAM-CoV-2 (COVID-19) mRNA-1273 vaccineMichael NILL GeneKindred HospitalComment on above:Result Comment: 2022-10-21: [id number]-RqY-9 (COVID-19) mRNA-1273 vaccine Erendira NILL GeneKindred HospitalTexjjyys84-76-7323PAVA-KmB-3 (COVID-19) mRNA-1273 vaccineMichael NILL General Surgery Katja Abrams DatePayer CategoryPayerPolunitypoint health-[facility] [id number]-nrw [id number] [id number] 2.16.840.1.483437.3.57[id number] 2.16.840.1.145297.3.57[id number] 2.16.840.1.363389.3.579.2.14570-69-7594Rxwjwhq234740 2.16.840.1.756745.3.579.2.5[id number] 2.16.840.1.970312.3.579.2.89100-43-6288Jopsutj10014506 2.16.840.1.216512.3.579.2.[id number] 2.16.840.1.135565.3.579.[id number] 2.16.840.1.437185.3.579.[id number] 2.16.840.1.738681.3.579.2.727Medic[id number] pk30wtvc-51zh-19d1-[id number] 7327m7oz-29pz-1931-[id number] 2.16.840.1.804686.[id number] Social History DateTypeDetailFacilityTobacc smoking status NHISUnknown if ever smokedCapitola ClinicSex Assigned At BirthNot on fileCorey Hospitaltart: 10-54-9411Jdc [facility]igned At [facility] Northtart: 10-21-2022 End: 74-61-7629Uhuoymj smoking statusNever smoked tobacco (finding)General Surgery BellevueTouniversity of [facility] smoking statusNeverGeneral Surgery BellevueSex Assigned At [facility] HospitalTobacc smoking status NHISUnknown if ever smokedMercy Health St. [facility] Work Phone: Start: 11-26-2024 End: 32-85-7810KnkPnnswq (finding)[facility] Functional Status BipgZebiojqncaJgdptxBpxqoqtq83-96-0743Oqqcvlicpi StatusN/AGeneral Surgery [place] Clinical Note 07-25-2025 Note Date & IzyjNixqHplizhdh54-30-5575 NotePatient Education Obstetrics and Gynecology Preventive Care 65 Years and Older, Female Preventive care refers to lifestyle choices and visits with your health care provider that can promote health and wellness. Preventive care visits are also called wellness exams. What can I expect for my preventive care visit? Counseling Your health care provider may ask you questions about your: ??? Medical history, including: ? Past medical problems. ? Family medical history. ? and menstrual history. ? History of falls. ??? Current health, including: ? Memory and ability to understand (cognition). ? Emotional well-being. ? Home life and relationship well-being. ? Sexual activity and sexual health. ??? Lifestyle, including: ? Alcohol, nicotine or tobacco, and drug use. ? Access to firearms. ? Diet, exercise, and sleep habits. ? Work and work environment. ? Sunscreen use. ? Safety issues such as seatbelt and bike helmet use. Physical exam Your health care provider will check your: ??? Height and weight. These may be used to calculate your BMI (body mass index). BMI is a measurement that tells if you are at a healthy weight. ??? Waist circumference. This measures the distance around your waistline. This measurement also tells if you are at a healthy weight and may help predict your risk of certain diseases, such as type 2 diabetes and high blood pressure. ??? Heart rate and blood pressure. ??? Body temperature. ??? Skin for abnormal spots. What immunizations do I need? Vaccines are usually given at various ages, according to a schedule. Your health care provider willrecommend vaccines for you based on your age, medical history, and lifestyle or other factors, suchas travel or where you work. What tests do I need? Screening Your health care provider may recommend screening tests for certain conditions. This may include: ??? Lipid and cholesterol levels. ??? Hepatitis C test. ??? Hepatitis B test. ??? HIV (human immunodeficiency virus) test. ??? STI (sexually transmitted infection) testing, if you are at risk. ??? Lung cancer screening. ??? Colorectal cancer screening. ??? Diabetes screening. This is done by checking your blood sugar (glucose) after you have not eaten for a while (fasting). ??? Mammogram. Talk with your health care provider about how often you should have regular mammograms. ??? BRCA-related cancer screening. This may be done if you have a family history of breast, ovarian, tubal, or peritoneal cancers. ??? Bone density scan. This is done to screen for osteoporosis. Talk with your health care provider about your test results, treatment options, and if necessary, the need for more tests. Follow these instructions at home: Eating and drinking ??? Eat a diet that includes fresh fruits and vegetables, whole grains, lean protein, and low-fat dairy products. Limit your intake of foods with high amounts of sugar, saturated fats, and salt. ??? Take vitamin and mineral supplements as recommended by your health care provider. ??? Do not drink alcohol if your health care provider tells you not to drink. ??? If you drink alcohol: ? Limit how much you have to 0?1 drink a day. ? Know how much alcohol is in your drink. In the [place] one drink equals one 12 oz bottle of beer (355 mL), one 5 oz glass of wine (148 mL), or one 1? oz glass of hard liquor (44 mL). Lifestyle ??? Two Buttes your teeth every morning and night with fluoride toothpaste. Floss one time each day. ??? Exercise for at least 30 minutes 5 or more days each week. ??? Do not use any products that contain nicotine or tobacco. These products include cigarettes, chewing tobacco, and vaping devices, such as e-cigarettes. If you need help quitting, ask your health care provider. ??? Do not use drugs. ??? If you are sexually active, practice safe sex. Use a condom or other form of protection in order to prevent STIs. ??? Take aspirin only as told by your health care provider. Make sure that you understand how much to take and what form to take. Work with your health care provider to find out whether it is safe and beneficial for you to take aspirin daily. ??? Ask your health care provider if you need to take a cholesterol-lowering medicine (statin). ??? Find healthy ways to manage stress, such as: ? Meditation, yoga, or listening to music. ? Journaling. ? Talking to a trusted person. ? Spending time with friends and family. ??? Minimize exposure to UV radiation to reduce your risk of skin cancer. Safety ??? Always wear your seat belt while driving or riding in a vehicle. ??? Do not drive: ? If you have been drinking alcohol. Do not ride with someone who has been drinking. ? When you are tired or distracted. ? While texting. ? If you have been using any mind-altering substances or drugs. ??? Wear a helmet and other protective equipme (more content not included)... [facility] Evaluation note 11-26-2024 Note Date & [id number] Evaluation note* Diagnosis Onset Date Resolution Status Admit Date Dysuria acuteMarch 2024 12:00pm [facility] Work Phone: Evaluation + Plan note 08-25-2023 Note Date & [id number] Evaluation + Plan note Diagnostic Tests Pending * Urine Culture 08/25/[address] [facility] Clinical Note 11-05-2022 Note Date & [id number] NoteOPERATIVE NOTE OPERATION DATE: 11/05/2022 PREOPERATIVE DIAGNOSIS: Colorectal [...] room in good condition. CC: Merle Hernandez M.D.[facility] Evaluation + Plan note Note Date & TypeNoteFacilityEvaluation + Plan note No data available for this section [facility] [place] Evaluation note Note Date & TypeNoteFacilityEvaluation noteNo assessment information available [facility] Work Phone: Evaluation note Note Date & TypeNoteFacilityEvaluation note* Diagnosis Onset Date Resolution Status Admit Date Dysuria acuteMarch 2024 12:00pm [facility] Work Phone: Hospital Discharge instructions Note Date & TypeNoteFacilityHospital Discharge instructions No data available for this section [facility] [place] Progress note Note Date & TypeNoteFacilityProgress note No data available for this section [facility] [place] Chief Complaint and Reason for Visit Chief Complaint CBC Chief Complaint CBC TSH Chief Complaint Admit Date poss UTI November 26, 2024 12: 00pm Reason for Visit Admit Date Dysuria March 15th, 2025 12: 00pm Advance Directives No Advanced Directives Records Found [...] or prosecute any alcohol or drug abuse patient.[facility] Care Teams (unrecognized sec tion and content) Team Status: Active Member Role Status Dates Merle Hernandez MD Primary Care Provider Active Team Status: Inactive Member Role Status Dates Merle Hernandez MD Primary Care Provider Active Outreach CommunityAttending ProviderActive Team Status: Inactive Member Role Status Dates Merle Hernandez MD Primary Care Provider Active S tart: November 26, 2024 End: November 26Cody Hedricktending ProviderActiveStart: November 26, 2024 End: November 26, 2024 Team Status: Inactive Member Role Status Dates Opal Archibald APRN Attending Provider Active S tart: November 26, 2024 End: November 26, 2024 Goals (unrecognized section and content) Goals may be documented in a n alternate section No data available for this sectionGoals may be documented in an alternate section No data available for this section No data available for this sectionGoals may be documented in an alternate sectionGoals may be documented in an alternate section INFORMATION SOURCE (unrecogn ized section and content) DATE CREATED AUTHOR 11/07/2022 [facility] DATE CREATED AUTHOR 'S ORGANIZ ATION 08/21/2023 [facility] DATE CREATED AUTHOR AUTHOR'S ORGANIZ ATION 08/06/2024 [facility] DATE CREATED AUTHOR AUTHOR'S ORGANIZ ATION 02/11/2025 [facility] DATE CREATED AUTHOR AUTHOR'S ORGANIZ ATION 07/20/2025 [facility] DATE CREATED AUTHOR AUTHOR'S ORGANIZ ATION 07/27/2025 [facility] FOR RECORDS PERTAINING TO PATIENTS WHO ARE [...] BE BASED ON THE PRIMARY CLINICAL RECORDS. [facility]. provides no warranty or guarantee of the accuracy or completeness of information in this document.
--- NOTE | 2025-08-21 09:51 | MM_ITS ---
Patient Name: TERRIE NEWBERRY MR#: [id number] : 1960 Exam Date: 08/21/2025 Ordering Doctor: CHILO ALVARES . RADIOLOGY REPORT PROCEDURE: MM TOMOSYNTHESIS SCREENING BI COMPARISON: MM TOMOSYNTHESIS SCREENING BI, 08/17/2024. MM TOMOSYNTHESIS SCREENING BI, 08/07/2023. MG MAMM SCREEN 3D BHANU CAD, 08/01/2022. MG MAMM BHANU SCRN W CAD DIG, 06/30/2013. INDICATIONS: Screening Calculator Name NCI Breast Cancer Risk Assessment Tool 5 Year Breast Cancer Risk 1.40% Lifetime Breast Cancer Risk 5.20% Personal Breast Cancer No Personal Ovarian Cancer No Treatments hysterectomy Family Cancers None LOCATION: [facility] BREAST COMPOSITION: The breasts are heterogeneously dense, which may obscure small masses. FINDINGS: RIGHT BREAST: No significant suspicious finding. LEFT BREAST: No significant suspicious finding. A biopsy clip is present on the left. DIAGNOSTIC CATEGORY 2--BENIGN FINDING. NO CHANGE FROM COMPARISON. RECOMMENDATIONS: ROUTINE MAMMOGRAM AND CLINICAL EVALUATION IN 12 MONTHS. Dictated by: Pipo Courtney MD on 08/21/2025 at 15:07 Approved by: Pipo Courtney MD on 08/21/2025 at 15:14
== END 2025-08-21 09:46 | disposition home or self-care (01) ==
LOC: RAD 09:45
PROVIDERS: PCP Nurse Practitioner; Visit Provider Nurse Practitioner
DX: M81.0 Age-related osteoporosis without current pathological fracture (principal); Z12.31 Encounter for screening mammogram for malignant neoplasm of breast; M85.88 Other specified disorders of bone density and structure, other site
CPT/HCPCS: 77063; 77067; 77080